=== PATIENT | male | born 1965 | race Caucasian/White ===

== ENCOUNTER → 2018-03-15 | Outpatient (CLI) | payer MEDICARE ==
[2018-03-15 15:02] LABS: HCT 41.7 % (39.0-53.0); MCH 31.4 pg (25.0-35.0); MCHC 33.6 g/dL (31.0-37.0); MCV 93.3 fL (80.0-100.0); Mean Platelet Volume 6.6; Platelet Count 236 k/uL (150-450); RBC 4.47 m/uL (4.30-5.90); RDW 12.8 % (11.5-15.5); WBC 6.8 k/uL (3.8-10.6)
[2018-03-15 15:19] LABS: ALT 30 U/L (21-72); AST 19 U/L (17-59); Alkaline Phosphatase 73 U/L (38-126); Anion Gap 11 mmol/L; Blood Urea Nitrogen 17 mg/dL (9-20); Calcium 9.3 mg/dL (8.4-10.2); Carbon Dioxide 24 mmol/L (22-30); Chloride 102 mmol/L (98-107); Glucose 341 mg/dL (74-99); Potassium 5.2 mmol/L (3.5-5.1); Sodium 137 mmol/L (137-145); Total Bilirubin 0.5 mg/dL (0.2-1.3); Total Protein 6.6 g/dL (6.3-8.2)
[2018-03-16 02:44] LABS: Hemoglobin A1C 13.3 % (4.0-6.0)
== END | disposition home or self-care (01) ==
LOC: LABWHC1 14:37
PROVIDERS: ATTEND Thoracic Surgery (Cardiothoracic Vascular Surgery)
DX: E13.621 Other specified diabetes mellitus with foot ulcer (principal); L97.509 Non-pressure chronic ulcer of other part of unspecified foot with unspecified severity
CPT/HCPCS: 36415; 80053; 83036; 84134; 85027

== ENCOUNTER → 2018-03-31 | Outpatient (CLI) | payer MEDICARE ==
--- NOTE | 2018-04-04 11:55 | P.ARTDOP ---
Arterial Doppler LOWER EXTREMITY ARTERIAL DOPPLER: DATE OF SERVICE: 03/31/2018 Reason for study: Nonhealing foot ulcer. Doppler waveforms: Multiphasic bilaterally throughout. Pulse volume recording: []. Pressure gradients: None. Ankle-brachial indices: Cannot be occluded on either side Toe pressures: 105 on the right, 105 on the left Impression: Suggests calcific wall disease typical of diabetes. Does not appear to be. Affecting flow patterns. Clinical correlation recommended.
== END | disposition home or self-care (01) ==
LOC: RADUSWWP 12:55
PROVIDERS: ATTEND Thoracic Surgery (Cardiothoracic Vascular Surgery)
DX: M79.604 Pain in right leg (principal); M79.605 Pain in left leg
CPT/HCPCS: 93922

== ENCOUNTER 2019-02-28 11:43 | Emergency (ER) | payer OTHER, MEDICARE ==
[2019-02-28 11:51] VITALS: RESP 18
[2019-02-28 13:36] LABS: Basophils % (A) 1 %; Eosinophils # (A) 0.1 k/uL (0-0.7); Eosinophils % (A) 2 %; HCT 39.8 % (39.0-53.0); HGB 12.9 gm/dL (13.0-17.5); Lymphocytes # (A) 1.7 k/uL (1.0-4.8); Lymphocytes % (A) 27 %; MCH 30.6 pg (25.0-35.0); MCHC 32.5 g/dL (31.0-37.0); MCV 94.1 fL (80.0-100.0); Mean Platelet Volume 7.8; Monocytes # (A) 0.3 k/uL (0-1.0); Monocytes % (A) 5 %; Neutrophils # (A) 3.9 k/uL (1.3-7.7); Neutrophils % (A) 63 %; Platelet Count 219 k/uL (150-450); RBC 4.23 m/uL (4.30-5.90); RDW 12.3 % (11.5-15.5); WBC 6.1 k/uL (3.8-10.6)
[2019-02-28 13:47] LABS: ALT 18 U/L (21-72); AST 14 U/L (17-59); African American GFR (CKD) >90 (>60 ml/min/1.73 sqM); Albumin 3.9 g/dL (3.5-5.0); Alkaline Phosphatase 94 U/L (38-126); Anion Gap 9 mmol/L; Blood Urea Nitrogen 15 mg/dL (9-20); Calcium 9.1 mg/dL (8.4-10.2); Carbon Dioxide 28 mmol/L (22-30); Chloride 99 mmol/L (98-107); Glucose 335 mg/dL (74-99); Potassium 4.6 mmol/L (3.5-5.1); Sodium 136 mmol/L (137-145); Total Bilirubin 0.9 mg/dL (0.2-1.3); Total Protein 6.5 g/dL (6.3-8.2)
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
[2019-02-28 14:25] VITALS: BP 142/87; PULSE 83
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
[2019-02-28 14:42] VITALS: TEMP 97.9
[2019-02-28 20:23] LABS: Hemoglobin A1C 14.2 % (4.0-6.0)
== END 2019-02-28 14:42 | disposition home or self-care (01) ==
LOC: EC 11:43
DX: S39.92XA Unspecified injury of lower back, initial encounter (principal); S29.9XXA Unspecified injury of thorax, initial encounter; J45.909 Unspecified asthma, uncomplicated; E78.5 Hyperlipidemia, unspecified; I10 Essential (primary) hypertension; E11.40 Type 2 diabetes mellitus with diabetic neuropathy, unspecified; F32.9 Major depressive disorder, single episode, unspecified; Z87.01 Personal history of pneumonia (recurrent); Z87.440 Personal history of urinary (tract) infections; Z87.442 Personal history of urinary calculi; Z98.890 Other specified postprocedural states; Z88.8 Allergy status to other drugs, medicaments and biological substances; W22.8XXA Striking against or struck by other objects, initial encounter; Y92.511 Restaurant or cafe as the place of occurrence of the external cause; Y93.89 Activity, other specified
CPT/HCPCS: 36415; 72072; 74176; 80053; 83036; 84134; 85025; 99284

== ENCOUNTER 2019-09-03 08:49 | Inpatient (IN) | payer MEDICARE ==
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
[2019-09-03] MEDS: SODIUM CHLORIDE 0.9% 1,000 ML IV SCH ×3 (09:51→22:47)
[2019-09-03 10:20] LABS: Basophils % (A) 1 %; Eosinophils # (A) 0.1 k/uL (0-0.7); Eosinophils % (A) 2 %; HCT 37.1 % (39.0-53.0); HGB 12.2 gm/dL (13.0-17.5); Lymphocytes # (A) 1.6 k/uL (1.0-4.8); Lymphocytes % (A) 27 %; MCH 30.3 pg (25.0-35.0); MCV 91.7 fL (80.0-100.0); Mean Platelet Volume 7.5; Monocytes # (A) 0.3 k/uL (0-1.0); Monocytes % (A) 5 %; Neutrophils # (A) 3.8 k/uL (1.3-7.7); Neutrophils % (A) 64 %; Platelet Count 271 k/uL (150-450); RBC 4.05 m/uL (4.30-5.90)
[2019-09-03 10:28] LABS: ALT 11 U/L (4-49); AST 17 U/L (17-59); African American GFR (CKD) >90 (>60 ml/min/1.73 sqM); Albumin 3.4 g/dL (3.5-5.0); Alkaline Phosphatase 94 U/L (38-126); Anion Gap 10 mmol/L; Blood Urea Nitrogen 18 mg/dL (9-20); Carbon Dioxide 21 mmol/L (22-30); Chloride 104 mmol/L (98-107); Glucose 409 mg/dL (74-99); Non-African American GFR(CKD) >90 (>60 ml/min/1.73 sqM); Potassium 4.9 mmol/L (3.5-5.1); Sodium 135 mmol/L (137-145); Total Bilirubin 0.5 mg/dL (0.2-1.3); Total Protein 6.2 g/dL (6.3-8.2)
[2019-09-03 10:40] LABS: INR 0.9 (<1.2); Prothrombin Time 9.5 sec (9.0-12.0)
--- NOTE | 2019-09-03 10:40 | XR ---
EXAMINATION TYPE: XR tibia fibula LT DATE OF EXAM: 09/03/2019 CLINICAL HISTORY: Nonhealing wound for 2 weeks. TECHNIQUE: Two views of the left leg are obtained. COMPARISON: None. FINDINGS: There is no acute fracture or dislocation seen in the left tibia or fibula. No suspicious cortical destruction or periosteal reaction. The left knee and ankle joints appear within normal limi ts. Mild focal soft tissue prominence or swelling anterior to distal shaft level of the tibia with so me scattered vascular calcification and phleboliths noted. IMPRESSION: As above.
[2019-09-03 10:47] LABS: Partial Thromboplastin Time 21.9 sec (22.0-30.0)
[2019-09-03] MEDS ORDERED: AMPICILLIN-SULBACTAM 3 GM in SODIUM CHLORIDE 0.9% 100 ML IVPB STA (10:47)
[2019-09-03] MEDS ORDERED: NALOXONE 0.4 MG/ML 1 ML VIAL IV PRN (10:48)
[2019-09-03] MEDS ORDERED: ACETAMINOPHEN TAB 325 MG TAB PO PRN (10:48)
[2019-09-03 13:11] LABS: Glucose,Whole Blood 314 mg/dL (75-99)
[2019-09-03] MEDS: INSULIN ASPART (NovoLOG) 100 UNIT/ML VIAL SQ SCH ×3 (13:34→20:24)
[2019-09-03 17:23] LABS: Glucose,Whole Blood 311 mg/dL (75-99)
[2019-09-03] MEDS ORDERED: AMPICILLIN-SULBACTAM 1.5 GM in SODIUM CHLORIDE 0.9% 50 ML IVPB SCH (18:00)
[2019-09-03] MEDS ORDERED: IPRATROPIUM-ALBUTEROL 3 ML NEB INHALATION PRN (20:00)
[2019-09-03] MEDS ORDERED: ONDANSETRON 4 MG/2 ML VIAL IVP PRN (20:01)
[2019-09-03] MEDS: ATORVASTATIN 40 MG TAB PO SCH (20:23)
[2019-09-03] MEDS: GABAPENTIN 300 MG CAP PO SCH (20:23)
[2019-09-03] MEDS: INSULN ASP PRT/INSULIN ASPART 100 UNIT/ML 10 ML VIAL SQ SCH (20:24)
[2019-09-03 20:28] LABS: Glucose,Whole Blood 415 mg/dL (75-99)
[2019-09-03] MEDS ORDERED: ALPRAZolam 0.25 MG TAB PO PRN (22:13)
[2019-09-03] MEDS ORDERED: HYDROmorphone 0.5 MG/0.5 ML SYRINGE IVP PRN (22:13)
[2019-09-03] MEDS ORDERED: TEMAZEPAM 15 MG CAP PO PRN (22:13)
[2019-09-03] MEDS ORDERED: VANCOMYCIN IV PER PHARMACY 1 EACH MISC MISCELLANE PRN (22:13)
[2019-09-03] MEDS ORDERED: VANCOMYCIN 1,500 MG in SODIUM CHLORIDE 0.9% 250 ML IVPB ONE (22:13)
[2019-09-03] MEDS ORDERED: PIPERACILLIN-TAZOBACTAM 3.375 GM in SODIUM CHLORIDE 0.9% 100 ML IVPB SCH (22:14)
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
[2019-09-03] MEDS: HEPARIN SODIUM,PORCINE 5,000 UNIT/ML 1 ML VIAL SQ SCH (22:47)
--- NOTE | 2019-09-03 23:59 | HP ---
HISTORY AND PHYSICAL CHIEF COMPLAINT: Pain and swelling of the left mendieta. HISTORY OF PRESENT ILLNESS: This 53-year-old gentleman with a past medical history of diabetes mellitus, history of asthma, history of GERD, hypertension, hyperlipidemia, DJD, neuropathy, being followed by Dr. Elaine Arias in the outpatient setting, previously had multiple ulcers in the right foot, which have healed. Currently the patient is complaining of pain and swelling and ulceration of the left mendieta area for the last 3 weeks. Initially patient had an injury while taking the and scraped the mendieta against the board in the van and subsequently patient re-injured with hitting it on a bed frame in the mid part of the mendieta. Also the patient put a Band-Aid on it and when he took the Bank-Aid off it denuded part of the skin as well. Because of increasing pain and swelling and redness, tenderness and some discharge, Dr. Arias recommended that the patient go to the wound care center. The patient subsequently came to [facility] Emergency Room and was admitted for further evaluation and treatment. There is no history of any fever, rigor or chills. No history of headache, loss of consciousness, seizures. PAST MEDICAL HISTORY: History of asthma, diabetes mellitus, GERD, hypertension, hyperlipidemia, history of DJD, history of neuropathy, history of ADD, ADHD, depression. HOME MEDICATIONS: 1. Bactrim DS 1 p.o. b.i.d. 2. Zoloft 50 mg p.o. daily. 3. Prinivil 20 mg p.o. daily. 4. Humalog Mix 40 units subcutaneously t.i.d. 5. Neurontin 300 to 600 mg p.o. t.i.d. 6. Lotrisone application t.i.d. 7. Lipitor 40 mg. 8. Albuterol 1-2 puffs q.6 p.r.n. ALLERGIES: PHENOBARBITAL. FAMILY HISTORY: History of CAD in the family. SOCIAL HISTORY: No history of smoking. No history of alcohol intake. REVIEW OF SYSTEMS: ENT: No diminished hearing. No diminished vision. CARDIOVASCULAR SYSTEM: No angina, palpitations. RESPIRATORY SYSTEM: As mentioned earlier. GI: No nausea, vomiting. : No dysuria or retention. NERVOUS SYSTEM: As mentioned earlier. ALLERGY/IMMUNOLOGY: No asthma, hayfever. MUSCULOSKELETAL: As mentioned earlier. HEMATOLOGY/ONCOLOGY: No history of anemia. ENDOCRINE: Diabetes mellitus. CONSTITUTIONAL: As mentioned earlier. DERMATOLOGY: As mentioned earlier. RHEUMATOLOGY: Negative. PSYCHIATRY: As mentioned earlier. PHYSICAL EXAMINATION: Patient is alert and oriented x3. Pulse is 93, blood pressure 136/75, respiration 18, temperature 98.2, pulse ox 96% on room air. HEENT: Conjunctivae normal. Oral mucosa moist. NECK: No jugular venous distention. No carotid bruit. No lymph node enlargement. CARDIOVASCULAR SYSTEM: S1, S2 muffled. No S3. No S4. RESPIRATORY SYSTEM: Breath sounds diminished at the bases. A few scattered rhonchi. No crackles. ABDOMEN: Soft, non-tender. No mass palpable. Obese. LEGS: Significant pain and swelling and fluctuant mass in the mid part of the mendieta with surrounding erythema. Denuded skin, also. Severe tenderness present. There are healed scars on the right foot. Pulses are diminished bilaterally and sensation is also diminished bilaterally. NERVOUS SYSTEM: Higher functions as mentioned earlier. Moves all 4 limbs. No focal motor or sensory deficit. LYMPHATICS: No lymph node palpable in neck, axillae or groin. SKIN: As mentioned earlier. JOINTS: No active deforming arthropathy. LABS: WBC 6, hemoglobin 12.2. Sodium 135, potassium 4.9. Glucose 409. Albumin 3.4. ASSESSMENT: 1. Acute left mendieta abscess with surrounding cellulitis, possibly related to diabetes mellitus, type 2, with failure of outpatient treatment. 2. Diabetes mellitus, type 2, uncontrolled with hyperglycemia. 3. Hyponatremia. 4. Anemia, normocytic; anemia of chronic disease. 5. History of asthma. 6. History of gastroesophageal reflux disease. 7. Hyperlipidemia. 8. Hypertension. 9. History of degenerative joint disease. 10.History of pneumonia. 11.History of sleep apnea. 12.History of peripheral neuropathy. 13.History of previous methicillin-resistant Staphylococcus aeruginosa. 14.History of attention deficit disorder, attention deficit hyperactivity disorder and depression. 15.FULL CODE. RECOMMENDATIONS AND DISCUSSION: In this 53-year-old gentleman who presented with multiple complex medical issues, I would recommend to continue the current medications, continue with symptomatic treatment. Otherwise I would recommend broad-spectrum IV antibiotics. I would recommend Zosyn and vancomycin. Obtain the cultures. Will also recommend infectious disease evaluation and orthopedic evaluation and bone scan. Resume the home medications. Monitor blood sugars closely. Guarded prognosis because of multiple complex medical issues. Further recommendations to follow. A copy of this dictation is being forwarded to Dr. Arias, who is the primary physician. Prognosis guarded. See orders for details. Cut down the IV to 70 mL/hour. DVT prophylaxis and proton pump inhibitors. MMODL / IJN: [id number] / MTDD
[2019-09-04 07:49] LABS: Glucose,Whole Blood 135 mg/dL (75-99)
[2019-09-04] MEDS: LISINOPRIL 20 MG TAB PO SCH (08:10)
[2019-09-04] MEDS: HEPARIN SODIUM,PORCINE 5,000 UNIT/ML 1 ML VIAL SQ SCH ×3 (08:10→20:52)
[2019-09-04] MEDS: PANTOPRAZOLE 40 MG TABLET PO SCH (08:10)
[2019-09-04] MEDS: SERTRALINE 50 MG TAB PO SCH (08:10)
[2019-09-04] MEDS: INSULN ASP PRT/INSULIN ASPART 100 UNIT/ML 10 ML VIAL SQ SCH ×2 (08:10→17:38)
[2019-09-04] MEDS: INSULIN ASPART (NovoLOG) 100 UNIT/ML VIAL SQ SCH ×4 (08:11→20:51)
[2019-09-04] MEDS: GABAPENTIN 300 MG CAP PO SCH ×3 (08:17→20:52)
[2019-09-04] MEDS: VANCOMYCIN 1,500 MG in SODIUM CHLORIDE 0.9% 250 ML IVPB SCH ×3 (08:17→23:25)
[2019-09-04 09:39] LABS: Basophils % (A) 1 %; Eosinophils # (A) 0.1 k/uL (0-0.7); Eosinophils % (A) 2 %; HCT 35.5 % (39.0-53.0); HGB 11.8 gm/dL (13.0-17.5); Lymphocytes # (A) 1.9 k/uL (1.0-4.8); Lymphocytes % (A) 37 %; MCH 30.8 pg (25.0-35.0); MCHC 33.2 g/dL (31.0-37.0); MCV 92.8 fL (80.0-100.0); Mean Platelet Volume 7.4; Monocytes # (A) 0.2 k/uL (0-1.0); Monocytes % (A) 4 %; Neutrophils # (A) 2.7 k/uL (1.3-7.7); Neutrophils % (A) 54 %; Platelet Count 276 k/uL (150-450); RBC 3.83 m/uL (4.30-5.90); RDW 12.3 % (11.5-15.5); WBC 5.1 k/uL (3.8-10.6)
[2019-09-04 10:02] LABS: African American GFR (CKD) >90 (>60 ml/min/1.73 sqM); Anion Gap 4 mmol/L; Blood Urea Nitrogen 14 mg/dL (9-20); Calcium 8.7 mg/dL (8.4-10.2); Carbon Dioxide 25 mmol/L (22-30); Chloride 108 mmol/L (98-107); Glucose 174 mg/dL (74-99); Non-African American GFR(CKD) >90 (>60 ml/min/1.73 sqM); Potassium 5.5 mmol/L (3.5-5.1); Sodium 137 mmol/L (137-145)
[2019-09-04 11:21] VITALS: BMI 33.4
--- NOTE | 2019-09-04 11:47 | NM ---
EXAMINATION TYPE: NM bone 3 phase DATE OF EXAM: 09/04/2019 COMPARISON: Three-phase bone scan October 24, 2014. Left leg x-ray from yesterday. HISTORY: Left leg wound. Triple phase bone scintigraphy was performed following the injection of 22.5 mCi Tc 99m MDP. Immedia te images and 3.5 hours post injection images acquired. Imaging is obtained of the bilateral legs and ankles. FINDINGS: Arterial and soft tissue phase images show increased uptake to the left leg versus the Opposite right leg most prominent involving the lateral anterior aspect distal diaphyseal level. Delayed phase images show no increased radiotracer uptake at this level to suggest acute osteomyeliti s. Two-phase radiotracer uptake is consistent with soft tissue infection or acute cellulitis at this level. IMPRESSION: As above.
[2019-09-04 12:33] LABS: Glucose,Whole Blood 102 mg/dL (75-99)
--- NOTE | 2019-09-04 12:35 | P.CNOR ---
<Papo Mujica - Last Filed: 09/04/19 12:13> History of Present Illness - HPI Consult date: 09/04/19 History of present illness: This patient is a 53-year-old male with past medical history of hypertension and type 2 diabetes last A1c 12, per patient, who presented to [facility] ER on 09/03/19 with complaints of a left lower leg wound. The patient states he initially injured With the leg in April 2019, he states he sustained a wound from a truck bed. He states the wound was open for about 4 weeks, although it eventually healed. He states he experienced intermittent pain to the left lower leg throughout the past few months. He states he again injured the same location the left lower leg about 4 weeks ago on his bed frame. He states he presented to his primary care physician for evaluation and treatment. The patient was placed on Bactrim and has been taking Bactrim for the past 34 weeks. He states he was seen for a follow-up appointment his primary care physician's office, and he was told to present to the emergency department if he experiences worsening of symptoms. He states he began to notice drainage of the wound over the weekend, therefore he presented to the emergency department for treatment. The patient also notes a history of MRSA infection. At the time of my examination, the patient states he is experiencing mild pain in the left lower leg. He denies fevers, chills, nausea, vomiting, feeling generalized malaise. He states he otherwise feels well. Vital signs stable. Past Medical History Past Medical History: Asthma, Diabetes Mellitus, GERD/Reflux, Hyperlipidemia, Hypertension, Osteoarthritis (OA), Pneumonia, Sleep Apnea/CPAP/BIPAP Additional Past Medical History / Comment(s): neuropathy, sleep apnea in past with use of cpap but since lost over 100 pounds does;nt need machine any more,kidney stones, uti,PAST STAPH INFECTION RT EYE STATED NOT MRSA. [place] severe cold wheather had skin damage to both feet, most cleared up with excpetion of rt great toe. History of Any Multi-Drug Resistant Organisms: MRSA Year Discovered:: 2013 MDRO Source:: RT toe Past Surgical History: Adenoidectomy, Tonsillectomy Additional Past Surgical History / Comment(s): I&D of rt great toe Past Anesthesia/Blood Transfusion Reactions: No Reported Reaction Past Psychological History: ADD/ADHD, Depression Smoking Status: Never smoker Past Alcohol Use History: Occasional Past Drug Use History: None Reported - Past Family History Father Family Medical History: Coronary Artery Disease (CAD) Mother Family Medical History: Coronary Artery Disease (CAD), Diabetes Mellitus Medications and Allergies Home Medications Medication Instructions Recorded Confirmed Type Albuterol Sulfate [Ventolin HFA] 1 - 2 puff INHALATION RT-Q6H PRN 10/16/14 09/03/19 History Gabapentin [Neurontin] 300 - 600 mg PO TID 10/16/14 09/03/19 History Lisinopril [Prinivil] 20 mg PO DAILY 10/16/14 09/03/19 History Atorvastatin [Lipitor] 40 mg PO W/SUPPER 09/03/19 09/03/19 History Clotrimazole/Betameth Cream 1 applic TOPICAL TID 09/03/19 09/03/19 History [Lotrisone] Insulin NPL/Insulin Lispro 40 unit SQ AC-TID 09/03/19 09/03/19 History [humaLOG MIX 75-25 VIAL] Sertraline [Zoloft] 50 mg PO DAILY 09/03/19 09/03/19 History Sulfamethox-Tmp 800-160Mg [Bactrim 1 tab PO Q12HR 09/03/19 09/03/19 History DS 800-160 mg] Allergies Allergy/AdvReac Type Severity Reaction Status Date / Time phenobarbital AdvReac Unknown Verified 09/04/19 14:40 Childhood Physical Examination On examination, the patient is sitting up in bed in no distress. He is alert and oriented 3. His head appears normocephalic and atraumatic. His breathing appears nonlabored. On inspection of the left lower extremity, there is diffuse swelling of the left lower extremity with an area about 10cm x 10cm of erythema with a central area of fluctuance. This area is moderately tender to palpation. There is no active drainage at this time. The calf is soft and non-tender to palpation. No pain with PROM of the knee or ankle. Sensation is decreased to light touch of the dorsal and plantar foot, as well as the first dorsal webspace, secondary to patient's neuropathy. The left lower extremity is warm an d well perfused with brisk capillary refill. Results - Labs Labs: Abnormal Lab Results - Last 24 Hours (Table) 09/03/19 09/03/19 09/03/19 Range/Units 09:36 09:36 09:36 RBC 4.05 L (4.30-5.90) m/uL Hgb 12.2 L (13.0-17.5) gm/dL Hct 37.1 L (39.0-53.0) % APTT 21.9 L (22.0-30.0) sec Sodium 135 L (137-145) mmol/L Carbon Dioxide 21 L (22-30) mmol/L Creatinine 0.65 L (0.66-1.25) mg/dL Glucose 409 H (74-99) mg/dL POC Glucose (mg/dL) (75-99) mg/dL Total Protein 6.2 L (6.3-8.2) g/dL Albumin 3.4 L (3.5-5.0) g/dL 09/03/19 09/03/19 09/03/19 Range/Units 13:08 17:21 20:16 RBC (4.30-5.90) m/uL Hgb (13.0-17.5) gm/dL Hct (39.0-53.0) % APTT (22.0-30.0) sec Sodium (137-145) mmol/L Carbon Dioxide (22-30) mmol/L Creatinine (0.66-1.25) mg/dL Glucose (74-99) mg/dL POC Glucose (mg/dL) 314 H 311 H 415 H (75-99) mg/dL Total Protein (6.3-8.2) g/dL Albumin (3.5-5.0) g/dL 09/04/19 Range/Units 07:17 RBC (4.30-5.90) m/uL Hgb (13.0-17.5) gm/dL Hct (39.0-53.0) % APTT (22.0-30.0) sec Sodium (137-145) mmol/L Carbon Dioxide (22-30) mmol/L Creatinine (0.66-1.25) mg/dL Glucose (74-99) mg/dL POC Glucose (mg/dL) 135 H (75-99) mg/dL Total Protein (6.3-8.2) g/dL Albumin (3.5-5.0) g/dL Microbiology - Last 24 Hours (Table) 09/03/19 09:36 Gram Stain - Preliminary Leg - Left Wound Culture - Preliminary Presumptive Staph aureus H & H 09/03/19 Range/Units 09:36 Hgb 12.2 L (13.0-17.5) gm/dL Hct 37.1 L (39.0-53.0) % Coagulation 09/03/19 Range/Units 09:36 INR 0.9 (<1.2) Result Diagrams: 09/04/19 08:26 09/04/19 08:26 Assessment and Plan Assessment: Left lower extremity cellulitis and abscess Plan: - The clinical findings were discussed with the patient. Recommended a formal irrigation and debridement of the left lower leg wound in the operating room today. We will plan for this afternoon, as the patient was not made NPO and ate breakfast this morning. - NPO diet. - Further recommendations will be made postoperatively. Patient discussed with Dr. Machado. <Chapo Machado - Last Filed: 09/04/19 15:17> Results - Labs Labs: Abnormal Lab Results - Last 24 Hours (Table) 09/03/19 09/03/19 09/04/19 Range/Units 17:21 20:16 07:17 RBC (4.30-5.90) m/uL Hgb (13.0-17.5) gm/dL Hct (39.0-53.0) % Potassium (3.5-5.1) mmol/L Chloride (98-107) mmol/L Creatinine (0.66-1.25) mg/dL Glucose (74-99) mg/dL POC Glucose (mg/dL) 311 H 415 H 135 H (75-99) mg/dL 09/04/19 09/04/19 09/04/19 Range/Units 08:26 08:26 12:26 RBC 3.83 L (4.30-5.90) m/uL Hgb 11.8 L (13.0-17.5) gm/dL Hct 35.5 L (39.0-53.0) % Potassium 5.5 H (3.5-5.1) mmol/L Chloride 108 H (98-107) mmol/L Creatinine 0.59 L (0.66-1.25) mg/dL Glucose 174 H (74-99) mg/dL POC Glucose (mg/dL) 102 H (75-99) mg/dL Microbiology - Last 24 Hours (Table) 09/03/19 09:36 Blood Culture - Preliminary Blood No Growth after 24 hours 09/03/19 09:36 Gram Stain - Preliminary Leg - Left Wound Culture - Preliminary Presumptive Staph aureus H & H 09/03/19 09/04/19 Range/Units 09:36 08:26 Hgb 12.2 L 11.8 L (13.0-17.5) gm/dL Hct 37.1 L 35.5 L (39.0-53.0) % Coagulation 09/03/19 Range/Units 09:36 INR 0.9 (<1.2) Result Diagrams: 09/04/19 08:26 09/04/19 08:26 Assessment and Plan Plan: I agree with the above consult note. The patient is a poorly controlled diabetic currently on insulin with a recent hemoglobin A1c level of over 12 who was admitted to internal medicine with a left lower leg infection. Clinically there is an area of fluctuance from a presumed abscess over the anterolateral aspect of the left distal tibia. I recommended surgical irrigation and debridement with deep cultures. The patient understands the potential risks including continued or worsened infection and possibly the need for amputation. Time with Patient: Greater than 30
[2019-09-04] MEDS ORDERED: IV FLUID CONTINUATION 1,000 ML IV ONE (14:33)
[2019-09-04 14:49] LABS: Glucose,Whole Blood 94 mg/dL (75-99)
[2019-09-04] MEDS ORDERED: FAMOTIDINE 20 MG/2 ML VIAL IVP ONE (15:16)
[2019-09-04] MEDS ORDERED: ONDANSETRON 4 MG/2 ML VIAL IVP ONE (15:16)
[2019-09-04] MEDS ORDERED: PROPOFOL 10 MG/ML 20 ML VIAL IV ONE (15:19)
[2019-09-04] MEDS ORDERED: MIDAZOLAM 2 MG/2 ML VIAL ONE (15:19)
[2019-09-04] MEDS ORDERED: ePHEDrine SULFATE/0.9% NACL/PF 50 MG/5 ML SYRINGE IV ONE (15:19)
[2019-09-04] MEDS ORDERED: LIDOCAINE 1% INJ 10MG/ML (20 ML MDV) ONE (15:19)
[2019-09-04] MEDS ORDERED: fentaNYL (PF) 50 MCG/ML 2 ML AMP ONE (15:19)
[2019-09-04] MEDS ORDERED: SODIUM CHLORIDE 0.9% 1,000 ML IV ONE (15:46)
[2019-09-04] MEDS ORDERED: LIDOCAINE 2% (PF) 20 MG/ML 10 ML AMP SQ ONE (15:48)
--- NOTE | 2019-09-04 16:20 | P.OP ---
Date of Procedure: 09/04/19 Preoperative Diagnosis: 1. Cellulitis and deep abscess, left leg 2. Poorly controlled insulin-dependent diabetes with hemoglobin A1c greater than 12 Postoperative Diagnosis: Same Procedure(s) Performed: 1. Irrigation and debridement of left leg abscess (excisional debridement left leg using a scalpel down to the level of bone of nonviable skin and subcutaneous tissue) 2. Application of wound VAC, left leg Anesthesia: local, other (Sedation) Surgeon: Chapo Machado Estimated Blood Loss (ml): 5 IV fluids (ml): 500 Pathology: other (Deep cultures sent to microbiology) Condition: stable Disposition: PACU Indications for Procedure: The patient is a poorly controlled diabetic with a recent hemoglobin A1c level greater than 12 who was admitted with a left leg infection. Orthopedics was consulted. He was found to have a fluctuant mass and surrounding synovitis. I recommended formal drainage in the operating room. He discussed the potential risks and complications of surgery including wound healing issues, continued or worsened infection, medical Locations, and possibly need fragmentation. The patient understands these potential risks and acknowledges that he is a greater risk of having a complication due to his poorly controlled diabetes. He provided his consent to go forward with surgery. Operative Findings: There is a large abscess over the anterolateral aspect of the distal tibia. A large amount of gross purulence was expressed Description of Procedure: The patient was identified in preoperative holding and the correct left leg was marked with my initials. I reviewed the consent form with the patient and all of his questions were answered. The patient was then brought back to the operating room by anesthesia. He was given a sedation by anesthesia and preoperative antibiotics. A tourniquet was applied to the proximal aspect the left leg but was not used during the case. The left leg was prepped and draped in the standard sterile fashion. Prior to starting surgery timeout was performed identifying the correct patient, operative extremity, and procedure. I began by outlining a longitudinal incision directly over the fluctuant mass. 10 mL's of 2% lidocaine was injected over the marked incision site. A 15 blade scalpel was used to incise the skin. Dissection was carried down bluntly through the subcutaneous tissue with dissecting scissors. Immediately upon entering the abscess a large amount of gross purulence was expressed. The purulence was swabbed and sent for culture. The abscess tracked down to the periosteum over the tibia. The abscess was thoroughly debrided of nonviable tissue with a scalpel. A curet was used to remove the lining of the abscess. Wound was then thoroughly irrigated with sterile saline using pulsatile lavage. Due to the amount of purulence I decided to use a wound VAC. Ioban was cut into 1 inch strips were placed on the skin surrounding the wound. A wound VAC sponge was sized to the wound, cut, and gently packed into the abscess cavity. The VAC dressing Tiffanie pad were applied over the sponge and hooked up to a canister. Suction was set to 125 mmHg continuous suction was found have an excellent seal. An Manny wrap was applied over the leg. The patient was then awoken from his anesthetic and transferred to recovery room and procedure well. Plan: I would like to leave the VAC dressing on for at least 24-48 hours. We will take the dressing down in 24-48 hours. If at that point the wound appears clean I will turnover wound management and IV antibiotics to the infectious disease team. We'll continue to closely follow the patient while he is an inpatient.
[2019-09-04 16:25] LABS: Glucose,Whole Blood 112 mg/dL (75-99)
[2019-09-04] MEDS: HYDROmorphone 0.5 MG/0.5 ML SYRINGE IVP ONE ×2 (16:33→16:36)
[2019-09-04 17:24] LABS: Glucose,Whole Blood 108 mg/dL (75-99)
[2019-09-04] MEDS: SODIUM CHLORIDE 0.9% 1,000 ML IV SCH (17:28)
[2019-09-04] MEDS: ATORVASTATIN 40 MG TAB PO SCH (17:38)
[2019-09-04 20:10] LABS: Glucose,Whole Blood 108 mg/dL (75-99)
--- NOTE | 2019-09-04 20:15 | PN ---
PROGRESS NOTE DATE OF SERVICE: 09/04/2019 This 53-year-old gentleman admitted with significant abscess of the left mendieta underwent incision and drainage by Dr. Machado. The patient also had a wound V.A.C. applied to the left mendieta. There was no evidence of osteomyelitis. Irrigation and debridement of the left leg abscess with excisional debridement was also noted. There is no history of any fever or chills. The cultures are showing presumptive Staph aureus. PHYSICAL EXAMINATION: Alert and oriented x3. Pulse is 92, blood pressure 140/78, respirations 16, temperature 97 degrees, pulse ox 96% on room air. HEENT: Conjunctivae normal. NECK: No jugular venous distention. CARDIOVASCULAR SYSTEM: S1, S2 muffled. RESPIRATORY SYSTEM: Breath sounds diminished at the bases. No rhonchi. No crackles. ABDOMEN: Soft, non-tender. LEGS: Left mendieta abscess, status post incision and drainage. LABS: WBC 5.1, hemoglobin 11.2, potassium 5.5. ASSESSMENT: 1. Left mendieta abscess with surrounding cellulitis, possibly related to diabetes mellitus, type 2, with failure of outpatient treatment, status post excisional debridement and wound V.A.C. application. 2. Diabetes mellitus, type 2, uncontrolled, with hyperglycemia. 3. Hyponatremia. 4. Anemia, normocytic; anemia of chronic disease. 5. History of asthma. 6. Gastroesophageal reflux disease. 7. Hyperlipidemia. 8. Hypertension. 9. History of degenerative joint disease. 10.History of pneumonia. 11.Sleep apnea. 12.Peripheral neuropathy. 13.History of previous methicillin-resistant Staphylococcus aeruginosa. 14.History of attention deficit disorder, attention deficit hyperactivity disorder and depression. 15.FULL CODE. RECOMMENDATIONS AND DISCUSSION: I recommend to continue current medications, continue with the monitoring, symptomatic treatment. Continue with antibiotics. The blood sugars are better controlled at this time. Will continue to monitor with the 50 units of Lantus b.i.d. Closely follow with Dr. Machado and Dr. Camp. Await final ID of the cultured organisms. Further recommendations to follow. MMODL / IJN: [id number] /
--- NOTE | 2019-09-04 23:29 | PN ---
PROGRESS NOTE DATE OF SERVICE: 09/04/2019 REASON FOR FOLLOWUP: Left leg wound and cellulitis. INTERVAL HISTORY: The patient is currently afebrile. The patient has been breathing comfortably. The patient denies having any chest pain, shortness of breath or cough. No nausea, no vomiting. No abdominal pain. No diarrhea. PHYSICAL EXAMINATION: Blood pressure is 146/78 with a pulse of 92, temperature 97. He is 96% on room air. General description is a middle-aged male up in the bed in no distress. RESPIRATORY SYSTEM: Unlabored breathing. Clear to auscultation anteriorly. HEART: S1, S2. Regular rate and rhythm. ABDOMEN: Soft. No tenderness. LABS: Wound culture with presumptive Staph aureus. DIAGNOSTIC IMPRESSION AND PLAN: Patient with left leg wound, traumatic, now with evidence of underlying abscess, failing outpatient oral antibiotic therapy, status post drainage of this abscess. Will wait for the culture to finalize. Continue the patient on vancomycin and monitor clinical course closely. MMODL / IJN: [id number] /
[2019-09-05] MEDS: SODIUM CHLORIDE 0.9% 1,000 ML IV SCH ×2 (05:30→21:18)
[2019-09-05 07:04] LABS: Glucose,Whole Blood 127 mg/dL (75-99)
[2019-09-05] MEDS: INSULIN ASPART (NovoLOG) 100 UNIT/ML VIAL SQ SCH ×4 (07:08→21:22)
[2019-09-05] MEDS: INSULN ASP PRT/INSULIN ASPART 100 UNIT/ML 10 ML VIAL SQ SCH ×2 (07:52→17:29)
[2019-09-05] MEDS: HEPARIN SODIUM,PORCINE 5,000 UNIT/ML 1 ML VIAL SQ SCH ×2 (07:53→21:18)
[2019-09-05] MEDS: PANTOPRAZOLE 40 MG TABLET PO SCH (07:53)
[2019-09-05] MEDS: SERTRALINE 50 MG TAB PO SCH (07:53)
[2019-09-05] MEDS: LISINOPRIL 20 MG TAB PO SCH (07:53)
[2019-09-05] MEDS: GABAPENTIN 300 MG CAP PO SCH ×3 (07:53→21:18)
[2019-09-05] MEDS: VANCOMYCIN 1,500 MG in SODIUM CHLORIDE 0.9% 250 ML IVPB SCH ×2 (07:53→16:47)
[2019-09-05 09:15] LABS: Basophils % (A) 1 %; Eosinophils # (A) 0.1 k/uL (0-0.7); Eosinophils % (A) 2 %; HCT 34.9 % (39.0-53.0); HGB 11.7 gm/dL (13.0-17.5); Lymphocytes # (A) 1.8 k/uL (1.0-4.8); Lymphocytes % (A) 35 %; MCH 31.2 pg (25.0-35.0); MCHC 33.5 g/dL (31.0-37.0); MCV 93.2 fL (80.0-100.0); Mean Platelet Volume 7.6; Monocytes # (A) 0.2 k/uL (0-1.0); Monocytes % (A) 5 %; Neutrophils # (A) 2.9 k/uL (1.3-7.7); Neutrophils % (A) 57 %; Platelet Count 278 k/uL (150-450); RBC 3.74 m/uL (4.30-5.90); RDW 12.2 % (11.5-15.5); WBC 5.1 k/uL (3.8-10.6)
[2019-09-05 09:25] LABS: African American GFR (CKD) >90 (>60 ml/min/1.73 sqM); Anion Gap 5 mmol/L; Blood Urea Nitrogen 9 mg/dL (9-20); Calcium 8.6 mg/dL (8.4-10.2); Carbon Dioxide 25 mmol/L (22-30); Chloride 108 mmol/L (98-107); Glucose 132 mg/dL (74-99); Non-African American GFR(CKD) >90 (>60 ml/min/1.73 sqM); Potassium 4.7 mmol/L (3.5-5.1); Sodium 138 mmol/L (137-145)
--- NOTE | 2019-09-05 10:20 | P.PN ---
Subjective Progress Note Date: 09/05/19 The patient is doing better this morning. He is minimal pain in his leg. He denies fevers or chills. Objective - Vital Signs Vital signs: Vital Signs Temp 97.4 F L 09/05/19 05:13 Pulse 86 09/05/19 05:13 Resp 16 09/05/19 05:13 BP 156/88 09/05/19 05:13 Pulse Ox 97 09/05/19 05:13 Intake & Output 09/04/19 09/05/19 09/05/19 18:59 06:59 18:59 Intake Total 1450 200 Output Total 5 Balance 1445 200 Weight 99.79 kg Intake: IV 1450 Oral 200 Output: Estimated Blood Loss 5 Other: # Voids 2 1 - Exam On exam the patient is sitting comfortably in his bed. The dressing over his left leg is intact with a clean-appearing Manny wrap. The tubing from the wound VAC is attached to the canister, with a good seal and suction is set to 125 mmHg. The tips of the toes are warm and well perfused. - Labs CBC & Chem 7: 09/05/19 07:51 09/05/19 07:51 Labs: Abnormal Lab Results - Last 24 Hours (Table) 09/04/19 09/04/19 09/04/19 Range/Units 12:26 16:23 17:15 RBC (4.30-5.90) m/uL Hgb (13.0-17.5) gm/dL Hct (39.0-53.0) % Chloride (98-107) mmol/L Creatinine (0.66-1.25) mg/dL Glucose (74-99) mg/dL POC Glucose (mg/dL) 102 H 112 H 108 H (75-99) mg/dL 09/04/19 09/05/19 09/05/19 Range/Units 20:07 06:59 07:51 RBC 3.74 L (4.30-5.90) m/uL Hgb 11.7 L (13.0-17.5) gm/dL Hct 34.9 L (39.0-53.0) % Chloride (98-107) mmol/L Creatinine (0.66-1.25) mg/dL Glucose (74-99) mg/dL POC Glucose (mg/dL) 108 H 127 H (75-99) mg/dL 09/05/19 Range/Units 07:51 RBC (4.30-5.90) m/uL Hgb (13.0-17.5) gm/dL Hct (39.0-53.0) % Chloride 108 H (98-107) mmol/L Creatinine 0.55 L (0.66-1.25) mg/dL Glucose 132 H (74-99) mg/dL POC Glucose (mg/dL) (75-99) mg/dL Microbiology - Last 24 Hours (Table) 09/04/19 15:55 Gram Stain - Preliminary Leg - Left Wound Culture - Preliminary 09/04/19 15:55 Fungal Culture - Preliminary Leg - Left 09/04/19 15:55 Anaerobic Culture - Preliminary Leg - Left 09/03/19 09:36 Blood Culture - Preliminary Blood No Growth after 24 hours 09/03/19 09:36 Gram Stain - Preliminary Leg - Left Wound Culture - Preliminary Presumptive Staph aureus Assessment and Plan (1) Abscess Current Visit: Yes Status: Acute Code(s): L02.91 - CUTANEOUS ABSCESS, UNSPECIFIED SNOMED Code(s): 857075962 (2) Abscess Current Visit: Yes Status: Acute Code(s): L02.91 - CUTANEOUS ABSCESS, UNSPECIFIED SNOMED Code(s): 244377501 (3) Abscess after procedure Current Visit: Yes Status: Acute Code(s): T81.49XA - INFECTION FOLLOWING A PROCEDURE, OTHER SURGICAL SITE, INIT SNOMED Code(s): 17045996846989694 (4) Left leg cellulitis Current Visit: Yes Status: Acute Code(s): L03.116 - CELLULITIS OF LEFT LOWER LIMB SNOMED Code(s): 806101783 Plan: I would like to leave the wound VAC on until tomorrow. Our team will change the wound VAC at that time and examine the wound. If it appears clean and healthy at that time we'll defer further wound management and antibiotics to infectious disease. If he requires a second debridement we'll perform that at that time. We will continue to closely follow while he is an inpatient.
[2019-09-05 12:08] LABS: Glucose,Whole Blood 252 mg/dL (75-99)
[2019-09-05] MEDS: HYDROcodone/APAP 5-325MG 1 EACH TAB PO PRN ×2 (13:41→21:19)
[2019-09-05] MEDS ORDERED: VANCOMYCIN TROUGH DUE 1 EACH MISC MISCELLANE ONE (15:00)
[2019-09-05] MEDS: ATORVASTATIN 40 MG TAB PO SCH (16:47)
[2019-09-05 16:58] LABS: Glucose,Whole Blood 177 mg/dL (75-99)
[2019-09-05 20:53] LABS: Glucose,Whole Blood 69 mg/dL (75-99)
[2019-09-05 21:23] LABS: Glucose,Whole Blood 98 mg/dL (75-99)
--- NOTE | 2019-09-06 00:09 | PN ---
PROGRESS NOTE DATE OF SERVICE: 09/05/2019 This 53-year-old gentleman who was admitted after a significant abscess and incision and drainage, had a wound VAC applied. The cultures are showing MSSA. The patient is followed by Dr. Machado as well as Dr. Capm. No chest pain. No palpitations. No fever. PHYSICAL EXAM: Alert and oriented x3. Pulse 91, blood pressure 120/83, respirations 16, temperature 98 degrees, pulse ox 94% on room air. HEENT: Conjunctivae normal. Oral mucosa moist. NECK: No jugular venous distention. No lymph node enlargement. CARDIOVASCULAR: S1, S2. RESPIRATORY: Diminished breath sounds at the bases. No rhonchi, no crackles. ABDOMEN: Soft, nontender. LEGS: Examination of the left mendieta, status post incision and drainage and application of the wound VAC. NERVOUS SYSTEM: No focal deficits. LAB STUDIES: WBC 5.1, hemoglobin 11.7, sodium 130, potassium 4.7. Accu-Cheks 252 and 177. Vancomycin 17.6. ASSESSMENT: 1. Left mendieta abscess with surrounding cellulitis, possibly related to diabetes type 2 with failure of outpatient treatment, status post excisional debridement and wound VAC application with possible MSSA. 2. Diabetes type 2, uncontrolled with hyperglycemia. 3. Hyponatremia. 4. Anemia, normocytic anemia of chronic disease. 5. History of asthma. 6. History of gastroesophageal reflux disease. 7. History of hyperlipidemia. 8. History of hypertension. 9. History of degenerative joint disease. 10.History of pneumonia. 11.History of sleep apnea. 12.History of peripheral neuropathy. 13.History of previous MRSA. 14.History of ADD/ADHD and depression. 15.FULL CODE. RECOMMENDATIONS AND DISCUSSION: Recommend to continue current medications, continue to monitor, continue symptomatic treatment. Otherwise, at this time I recommend continue with wound VAC. Continue the broad-spectrum IV antibiotics. The patient is on insulin 50 units subcu b.i.d. I would recommend slight increase to 55 subcu b.i.d. and continue to monitor. Guarded prognosis because of multiple complex medical conditions. Further recommendations to follow. MMODL / IJN: [id number] /
[2019-09-06 02:40] LABS: Glucose,Whole Blood 253 mg/dL (75-99)
[2019-09-06 06:57] LABS: Glucose,Whole Blood 236 mg/dL (75-99)
[2019-09-06] MEDS: INSULN ASP PRT/INSULIN ASPART 100 UNIT/ML 10 ML VIAL SQ SCH ×2 (07:07→17:13)
[2019-09-06] MEDS: SERTRALINE 50 MG TAB PO SCH (07:07)
[2019-09-06] MEDS: HEPARIN SODIUM,PORCINE 5,000 UNIT/ML 1 ML VIAL SQ SCH ×2 (07:08→21:18)
[2019-09-06] MEDS: PANTOPRAZOLE 40 MG TABLET PO SCH (07:08)
[2019-09-06] MEDS: LISINOPRIL 20 MG TAB PO SCH (07:08)
[2019-09-06] MEDS: GABAPENTIN 300 MG CAP PO SCH ×3 (07:08→21:18)
[2019-09-06 07:50] LABS: Basophils % (A) 1 %; Eosinophils # (A) 0.1 k/uL (0-0.7); Eosinophils % (A) 2 %; HGB 10.8 gm/dL (13.0-17.5); Lymphocytes # (A) 1.8 k/uL (1.0-4.8); Lymphocytes % (A) 48 %; MCH 30.8 pg (25.0-35.0); MCHC 32.8 g/dL (31.0-37.0); MCV 93.8 fL (80.0-100.0); Mean Platelet Volume 7.8; Monocytes # (A) 0.2 k/uL (0-1.0); Monocytes % (A) 4 %; Neutrophils # (A) 1.7 k/uL (1.3-7.7); Neutrophils % (A) 44 %; Platelet Count 259 k/uL (150-450); RBC 3.51 m/uL (4.30-5.90); RDW 12.4 % (11.5-15.5); WBC 3.8 k/uL (3.8-10.6)
--- NOTE | 2019-09-06 07:55 | PN ---
PROGRESS NOTE DATE OF SERVICE: 09/05/2019 REASON FOR FOLLOWUP: Left leg abscess and cellulitis. INTERVAL HISTORY: The patient is currently afebrile. Patient has been breathing comfortably. Patient did have debridement of the left leg wound yesterday and application of a wound VAC. Denies having any chest pain, shortness of breath or cough. No nausea, vomiting. No abdominal pain or any worsening pain in the left leg. PHYSICAL EXAMINATION: Blood pressure is 143/80 with a pulse of 91, temperature 98, he is 95% on room air. General description is a middle-aged male, lying in bed in no distress. RESPIRATORY SYSTEM: Unlabored breathing, clear to auscultation anteriorly. HEART: S1, S2. Regular rate and rhythm. ABDOMEN: Soft, no tenderness. Left leg is currently dressed up with no obvious drainage on the dressing. LABS: Hemoglobin 11.7, white count 5.1, BUN of 9, creatinine 0.55. Initial wound culture with MSSA. DIAGNOSTIC IMPRESSION AND PLAN: Patient with left flank abscess and cellulitis, status post drainage culture with MSSA. Will discontinue the vancomycin and start the patient on cefazolin 2 g q.8 hours. on the basis of the clinical source and continue supportive care. MMODL / IJN: [id number] /
[2019-09-06] MEDS: INSULIN ASPART (NovoLOG) 100 UNIT/ML VIAL SQ SCH ×4 (07:59→23:23)
[2019-09-06 08:02] LABS: African American GFR (CKD) >90 (>60 ml/min/1.73 sqM); Anion Gap 5 mmol/L; Blood Urea Nitrogen 9 mg/dL (9-20); Calcium 8.5 mg/dL (8.4-10.2); Carbon Dioxide 25 mmol/L (22-30); Chloride 107 mmol/L (98-107); Glucose 225 mg/dL (74-99); Non-African American GFR(CKD) >90 (>60 ml/min/1.73 sqM); Potassium 4.3 mmol/L (3.5-5.1); Sodium 137 mmol/L (137-145)
[2019-09-06] MEDS: SODIUM CHLORIDE 0.9% 1,000 ML IV SCH (09:38)
--- NOTE | 2019-09-06 11:41 | P.PN ---
Subjective Progress Note Date: 09/06/19 The patient is doing well this morning and has minimal complaints. He denies fevers or chills. Objective - Vital Signs Vital signs: Vital Signs Temp 98.0 F 09/06/19 05:24 Pulse 86 09/06/19 05:24 Resp 18 09/06/19 08:00 BP 115/73 09/06/19 05:24 Pulse Ox 95 09/06/19 05:24 Intake & Output 09/05/19 09/06/19 09/06/19 18:59 06:59 18:59 Intake Total 200 Balance 200 Intake: Oral 200 Other: Voiding Method Toilet # Voids 2 1 3 # Bowel Movements 1 1 - Exam Inspection the patient has a clean wound VAC dressing and Manny wrap over the left leg. The Manny wrap and wound VAC were taken down and the wound was inspected. There is mild surrounding erythema, but the wound appeared clean with no gross purulence. - Labs CBC & Chem 7: 09/06/19 07:29 09/06/19 07:29 Labs: Abnormal Lab Results - Last 24 Hours (Table) 09/05/19 09/05/19 09/05/19 Range/Units 12:01 16:53 20:51 RBC (4.30-5.90) m/uL Hgb (13.0-17.5) gm/dL Hct (39.0-53.0) % Creatinine (0.66-1.25) mg/dL Glucose (74-99) mg/dL POC Glucose (mg/dL) 252 H 177 H 69 L (75-99) mg/dL 09/06/19 09/06/19 09/06/19 Range/Units 02:36 06:46 07:29 RBC 3.51 L (4.30-5.90) m/uL Hgb 10.8 L (13.0-17.5) gm/dL Hct 33.0 L (39.0-53.0) % Creatinine (0.66-1.25) mg/dL Glucose (74-99) mg/dL POC Glucose (mg/dL) 253 H 236 H (75-99) mg/dL 09/06/19 Range/Units 07:29 RBC (4.30-5.90) m/uL Hgb (13.0-17.5) gm/dL Hct (39.0-53.0) % Creatinine 0.57 L (0.66-1.25) mg/dL Glucose 225 H (74-99) mg/dL POC Glucose (mg/dL) (75-99) mg/dL Microbiology - Last 24 Hours (Table) 09/04/19 15:55 Gram Stain - Preliminary Leg - Left Wound Culture - Preliminary Presumptive Staph aureus 09/03/19 09:36 Blood Culture - Preliminary Blood No Growth after 48 hours 09/03/19 09:36 Gram Stain - Final Leg - Left Wound Culture - Final Staphylococcus aureus Assessment and Plan (1) Abscess Current Visit: Yes Status: Acute Code(s): L02.91 - CUTANEOUS ABSCESS, UNSP ECIFIED SNOMED Code(s): 720904547 (2) Abscess Current Visit: Yes Status: Acute Code(s): L02.91 - CUTANEOUS ABSCESS, UNSPECIFIED SNOMED Code(s): 755456710 (3) Abscess after procedure Current Visit: Yes Status: Acute Code(s): T81.49XA - INFECTION FOLLOWING A PROCEDURE, OTHER SURGICAL SITE, INIT SNOMED Code(s): 37987031098653685 (4) Left leg cellulitis Current Visit: Yes Status: Acute Code(s): L03.116 - CELLULITIS OF LEFT LOWER LIMB SNOMED Code(s): 116954922 Plan: The wound VAC was taken down this morning and the wound appeared clean with no gross purulence. A nonadherent dressing, fluffs, and Manny wrap was applied over the leg. I've no plan for further surgical debridement at this time. I will defer to infectious disease/wound care for ongoing management of the patient's infection and wound. We will continue to closely follow while the patient is an inpatient
[2019-09-06] MEDS: HYDROcodone/APAP 5-325MG 1 EACH TAB PO PRN (11:49)
[2019-09-06 11:55] LABS: Glucose,Whole Blood 114 mg/dL (75-99)
[2019-09-06] MEDS: ATORVASTATIN 40 MG TAB PO SCH (15:13)
[2019-09-06 16:59] LABS: Glucose,Whole Blood 172 mg/dL (75-99)
--- NOTE | 2019-09-06 17:51 | PN ---
PROGRESS NOTE DATE OF SERVICE: 09/06/2019 This 53-year-old gentleman admitted with significant infection, cellulitis and abscess, incision and drainage. The cultures are growing possible MSSA. The patient is being closely monitored. No chest pain. No palpitations. No fever. EXAM: Alert and oriented x3. Pulse is 87, blood pressure 147/84, respiration 18, temperature 97.9, pulse ox 94% on room air. HEENT: Conjunctivae normal. Oral mucosa moist. NECK: No jugular venous distention. No lymph node enlargement. CARDIOVASCULAR: S1, S2. RESPIRATORY: Diminished breath sounds at the bases. No scattered rhonchi, no crackles. ABDOMEN: Soft, nontender. LEGS: Status post right mendieta infection. NERVOUS SYSTEM: No focal deficits. LABS: WBC 3.8, hemoglobin 10.8, glucose 225 and 114. ASSESSMENT: 1. Left mendieta abscess with surrounding cellulitis with possible related diabetes type 2 with failure of outpatient treatment, status post excision, debridement and wound VAC application with possible MSSA. 2. Diabetes mellitus type 2, uncontrolled with hyperglycemia. 3. Hyponatremia. 4. Anemia, normocytic anemia of chronic disease. 5. History of asthma. 6. History of gastroesophageal reflux disease. 7. No evidence of osteomyelitis in the bone scan. 8. History of hyperlipidemia. 9. Hypertension. 10.Degenerative joint disease. 11.History of pneumonia. 12.History of sleep apnea. 13.History of peripheral neuropathy. 14.History of previous MRSA. 15.History ADD, ADHD, depression. 16.FULL CODE. RECOMMENDATIONS AND DISCUSSION: Recommend to continue current medications, continue to monitor, continue symptomatic treatment. Otherwise, at this time continue with antibiotics. MSSA grown from the 1st culture, 2nd culture is pending. Guarded prognosis. Further recommendations to follow. MMODL / IJN: [id number] /
[2019-09-06 20:26] LABS: Glucose,Whole Blood 65 mg/dL (75-99)
[2019-09-06 20:26] LABS: Glucose,Whole Blood 46 mg/dL (75-99)
[2019-09-06 20:43] LABS: Glucose,Whole Blood 67 mg/dL (75-99)
[2019-09-06 20:59] LABS: Glucose,Whole Blood 63 mg/dL (75-99)
[2019-09-06 20:59] LABS: Glucose,Whole Blood 43 mg/dL (75-99)
[2019-09-06 21:20] LABS: Glucose,Whole Blood 94 mg/dL (75-99)
[2019-09-07 00:39] LABS: Glucose,Whole Blood 190 mg/dL (75-99)
[2019-09-07] MEDS: SODIUM CHLORIDE 0.9% 1,000 ML IV SCH (00:48)
[2019-09-07 05:31] VITALS: BP 158/77; PULSE 89; TEMP 97.3
[2019-09-07 06:57] LABS: Glucose,Whole Blood 182 mg/dL (75-99)
[2019-09-07] MEDS: PANTOPRAZOLE 40 MG TABLET PO SCH (07:08)
[2019-09-07] MEDS: SERTRALINE 50 MG TAB PO SCH (07:08)
[2019-09-07] MEDS: LISINOPRIL 20 MG TAB PO SCH (07:09)
[2019-09-07] MEDS: HEPARIN SODIUM,PORCINE 5,000 UNIT/ML 1 ML VIAL SQ SCH (07:09)
[2019-09-07] MEDS: INSULN ASP PRT/INSULIN ASPART 100 UNIT/ML 10 ML VIAL SQ SCH (07:09)
[2019-09-07] MEDS: GABAPENTIN 300 MG CAP PO SCH (07:09)
--- NOTE | 2019-09-07 08:11 | PN ---
PROGRESS NOTE DATE OF SERVICE: 09/06/2019 REASON FOR FOLLOWUP: Left leg abscess and cellulitis MSSA. INTERVAL HISTORY: The patient is currently afebrile, has been breathing comfortably. Denies having any chest pain or any cough. No nausea, no vomiting. No abdominal pain or worsening pain to the left leg area. PHYSICAL EXAMINATION: Blood pressure 138/75 with a pulse of 95, temperature 96.9. He is 96% on room air. General description is a middle-aged male lying in bed in no distress. RESPIRATORY SYSTEM: Unlabored breathing, clear to auscultation anteriorly. HEART: S1, S2. Regular rate and rhythm. ABDOMEN: Soft, no tenderness. Left leg swelling and redness slightly decreased, no drainage. LABS: No new labs have been obtained today. Wound culture finalized with MSSA. DIAGNOSTIC IMPRESSION AND PLAN: Patient with left leg abscess and cellulitis, status post surgical drainage. Culture with MSSA. Patient seemed to show clinical improvement. Local wound care was switched over to dry Aquacel Silver dressing. On cefazolin, hopefully switch to oral Keflex in the morning if the patient continues to improve. Continue with supportive care. MMODL / IJN: [id number] /
[2019-09-07 08:44] VITALS: RESP 19
[2019-09-07] MEDS: INSULIN ASPART (NovoLOG) 100 UNIT/ML VIAL SQ SCH ×2 (10:42→13:04)
[2019-09-07 12:02] LABS: Glucose,Whole Blood 113 mg/dL (75-99)
--- NOTE | 2019-09-07 12:55 | P.PN ---
Subjective Progress Note Date: 09/07/19 This patient is a 53 year old male with a past medical history of hypertension and type 2 diabetes last A1c 12 that is status-post irrigation and debridement of left leg abscess 09/04/19. Wound vac was removed yesterday, and all wound care was deferred to Dr. Camp and the infectious disease/wound care team. Patient is examined with Dr. Machado. Patient states he is doing well today, and he feels well. There are no new complaints today. Vital signs stable. Objective - Vital Signs Vital signs: Vital Signs Temp 97.3 F L 09/07/19 05:00 Pulse 89 09/07/19 05:00 Resp 19 09/07/19 08:00 BP 158/77 09/07/19 05:00 Pulse Ox 97 09/07/19 05:00 Intake & Output 09/06/19 09/07/19 09/07/19 18:59 06:59 18:59 Intake Total 240 1000 Balance 240 1000 Intake: Oral 240 1000 Other: Voiding Method Toilet Toilet # Voids 1 1 1 # Bowel Movements 1 - Exam Patient is up to the bathroom, about to get into the shower at the time of examination, therefore the left lower extremity was unable to be examined at this time. Vital signs stable. - Labs CBC & Chem 7: 09/06/19 07:29 09/06/19 07:29 Labs: Abnormal Lab Results - Last 24 Hours (Table) 09/06/19 09/06/19 09/06/19 Range/Units 16:56 20:23 20:25 POC Glucose (mg/dL) 172 H 46 L 65 L (75-99) mg/dL 09/06/19 09/06/19 09/06/19 Range/Units 20:42 20:55 20:58 POC Glucose (mg/dL) 67 L 43 L 63 L (75-99) mg/dL 09/07/19 09/07/19 09/07/19 Range/Units 00:38 06:49 11:56 POC Glucose (mg/dL) 190 H 182 H 113 H (75-99) mg/dL Microbiology - Last 24 Hours (Table) 09/03/19 09:36 Blood Culture - Preliminary Blood No Growth after 96 hours 09/04/19 15:55 Gram Stain - Final Leg - Left Wound Culture - Final Staphylococcus aureus 09/04/19 15:55 Anaerobic Culture - Preliminary Leg - Left Assessment and Plan Assessment: Left lower extremity cellulitis abscess status-post irrigation and debridement on 09/04/19. Post-operative day #3. Plan: - Will defer all wound care and antibiotic choice to infectious disease. He is clear for discharge from an orthopedic standpoint. - We will continue to follow patient while he remains inpatient.
--- NOTE | 2019-09-07 14:15 | PN ---
PROGRESS NOTE DATE OF SERVICE: 09/07/2019 REASON FOR FOLLOWUP: Left leg abscess, cellulitis, MSSA. INTERVAL HISTORY: The patient is currently afebrile. The patient has been feeling better. Breathing comfortably. Denies having any chest pain, shortness of breath or cough. Pain and swelling of the left leg have improved and there is no further drainage. PHYSICAL EXAMINATION: Blood pressure 150/77 with a pulse of 89, temperature is 97.3. He is 97% on room air. General description is a middle-aged male up in the bed in no distress. RESPIRATORY SYSTEM: Unlabored breathing, clear to auscultation anteriorly. HEART: S1, S2. Regular rate and rhythm. ABDOMEN: Soft, no tenderness. Left leg swelling and redness has improved, no drainage. LABS: Wound culture with MSSA. No CBC was done today. DIAGNOSTIC IMPRESSION AND PLAN: Patient with left leg wound and cellulitis in this patient, status post drainage of this abscess. The patient refused antibiotic because of the cough associated with it. Antibiotic was switched over to Keflex 500 mg p.o. q.6 hours for 10 days. Prescription sent to the pharmacy. Local wound care with Aquacel Silver packing and [facility]. MMODL / IJN: [id number] /
--- NOTE | 2019-09-08 08:38 | DS ---
DISCHARGE SUMMARY DATE OF SERVICE: 09/07/2019 FINAL DIAGNOSES: 1. Left mendieta abscess with surrounding cellulitis with possible related to diabetes mellitus type 2 with failure of outpatient treatment, status post excisional debridement and wound VAC application with possible MSSA. 2. Diabetes mellitus type 2, uncontrolled with hyperglycemia. 3. No evidence of osteomyelitis currently. 4. Hyponatremia. 5. Anemia, normocytic anemia of chronic disease. 6. History of asthma. 7. History of gastroesophageal reflux disease. 8. History of hyperlipidemia. 9. Hypertension. 10.History of degenerative joint disease. 11.History of pneumonia. 12.History of sleep apnea. 13.History of peripheral neuropathy. 14.History of previous MRSA. 15.History ADD, ADHD and depression. 16.FULL CODE. DISCHARGE DISPOSITION: The patient will be discharged in a stable condition with guarded prognosis. HISTORY OF PRESENT ILLNESS: This is a 53-year-old gentleman with a past medical history of multiple medical problems admitted with left mendieta abscess. The patient had wound VAC initially but subsequently IV antibiotics recommended Infectious Disease. Dr. Machado saw the patient. On exam, vitals are stable. CARDIOVASCULAR: S1, S2. ABDOMEN: Soft. NERVOUS SYSTEM: Left mendieta abscess present. DISCHARGE ADVICE: 1. Diet is cardiac diet. 2. Activity limited until followup. 3. Follow up with Dr. Arias in 2-3 days. 4. Follow up with Dr. Camp as recommended. MEDICATIONS WILL BE FOLLOWS: 1. Insulin lispro 40 units a.c. t.i.d. 2. Lipitor 40 mg with supper. 3. Clotrimazole topically. 4. Neurontin 300 to 600 mg daily. 5. Prinivil 20 mg p.o. daily. 6. Ventolin HFA 1 to 2 puffs q.6 p.r.n. 7. Zoloft 50 mg daily. 8. Keflex 500 mg q.6 p.o. for 2 weeks. 9. Tylenol p.r.n. I have decided to start the patient on p.o. antibiotic instead of any IV antibiotics at this time. Recommend close followup with Dr. Camp also in the outpatient setting in 1 week. MMODL / IJN: [id number] /
== END 2019-09-07 14:48 | disposition home health service (06) | DRG 982 ==
LOC: EC 08:49 → 5NMEDONC 10:48 → 6NMEDSUR 19:34 → OBSVTOIN 09-06 13:48
PROVIDERS: ADMIT Hospitalist; ATTEND Hospitalist
PROC: 0QBH0ZZ Excision of Left Tibia, Open Approach (ICD-10-PCS; principal; 2019-09-04 12:40)
DX: E11.628 Type 2 diabetes mellitus with other skin complications (principal); L03.116 Cellulitis of left lower limb; E87.1 Hypo-osmolality and hyponatremia; L02.416 Cutaneous abscess of left lower limb; L97.829 Non-pressure chronic ulcer of other part of left lower leg with unspecified severity; B95.61 Methicillin susceptible Staphylococcus aureus infection as the cause of diseases classified elsewhere; E11.65 Type 2 diabetes mellitus with hyperglycemia; Z79.4 Long term (current) use of insulin; D63.8 Anemia in other chronic diseases classified elsewhere; E78.5 Hyperlipidemia, unspecified; G47.30 Sleep apnea, unspecified; E11.42 Type 2 diabetes mellitus with diabetic polyneuropathy; I10 Essential (primary) hypertension; J45.909 Unspecified asthma, uncomplicated; K21.9 Gastro-esophageal reflux disease without esophagitis; E11.622 Type 2 diabetes mellitus with other skin ulcer; M19.90 Unspecified osteoarthritis, unspecified site; M65.9 Synovitis and tenosynovitis, unspecified; Z79.899 Other long term (current) drug therapy; Z82.49 Family history of ischemic heart disease and other diseases of the circulatory system; Z83.3 Family history of diabetes mellitus; Z86.14 Personal history of Methicillin resistant Staphylococcus aureus infection; Z87.01 Personal history of pneumonia (recurrent); Z87.442 Personal history of urinary calculi; F90.9 Attention-deficit hyperactivity disorder, unspecified type; F32.9 Major depressive disorder, single episode, unspecified; Z88.8 Allergy status to other drugs, medicaments and biological substances
CPT/HCPCS: 36415; 78315; 80048; 80053; 80202; 83605; 85025; 85610; 85730; 87040; 87070; 87075; 87077; 87102; 87186; 87205; 93005; 96365; 96366; 99285

== ENCOUNTER → 2020-06-27 | Outpatient (CLI) | payer MEDICARE ==
--- NOTE | 2020-06-27 15:43 | US ---
EXAMINATION TYPE: US kidneys/renal and bladder DATE OF EXAM: 06/27/2020 COMPARISON: None CLINICAL HISTORY: 54-year-old male R31.9 Hematuria. Patient states having urine frequency with diffic ult flow. TECHNIQUE: Multiple sonographic images of the kidneys and bladder are obtained. FINDINGS: EXAM MEASUREMENTS: Right Kidney: 10.0 x 6.6 x 6.0 cm Left Kidney: 11.5 x 6.0 x 6.6 cm Right Kidney: Echogenic focus seen in lower pole = 0.5 cm Left Kidney: Upper to mid pole hypoechoic lesion measuring 1.9 x 2.0 x 1.8 cm it shows posterior thro ugh transmission. No hydronephrosis on either side. Bladder: distended, anechoic Bilateral Jets seen IMPRESSION: 1. No hydronephrosis. 2. A 2.0 cm hypoechoic lesion in the left kidney shows posterior through transmission and may represe nt a debris-filled cyst. Six-month follow-up ultrasound recommended to ensure stability. 3. 5 mm nonobstructive right renal calculus.
== END | disposition home or self-care (01) ==
LOC: RADUSWWP 14:20
PROVIDERS: ATTEND Urology
DX: N28.89 Other specified disorders of kidney and ureter (principal); N20.0 Calculus of kidney
CPT/HCPCS: 76770

== ENCOUNTER → 2020-12-10 | Outpatient (CLI) | payer MEDICARE ==
[2020-12-10 22:41] LABS: Basophils # (A) 0.05 X 10*3/uL (0.00-0.10); Basophils % (A) 0.7 %; Eosinophils # (A) 0.12 X 10*3/uL (0.04-0.35); Eosinophils % (A) 1.6 %; HCT 39.9 % (39.6-50.0); HGB 12.7 g/dL (13.0-17.0); Lymphocytes # (A) 1.97 X 10*3/uL (0.90-5.00); Lymphocytes % (A) 26.5 %; MCH 30.8 pg (27.0-32.0); MCHC 31.8 g/dL (32.0-37.0); MCV 96.6 fL (80.0-97.0); Mean Platelet Volume 10.8 fL (9.5-12.2); Monocytes # (A) 0.56 X 10*3/uL (0.20-1.00); Monocytes % (A) 7.5 %; Neutrophils % (A) 63.4 %; Platelet Count 245 X 10*3/uL (140-440); RBC 4.13 X 10*6/uL (4.40-5.60); RDW 11.8 % (11.5-14.5); WBC 7.42 X 10*3/uL (4.50-10.00)
[2020-12-11 02:25] LABS: African American GFR (CKD) 97.1 (60.0-200.0); Anion Gap 7.8 mmol/L (4.00-12.00); Carbon Dioxide 25.2 mmol/L (21.6-31.8); Non-African American GFR(CKD) 83.8 (60.0-200.0); Potassium 5.1 mmol/L (3.5-5.5)
== END | disposition home or self-care (01) ==
LOC: LABWHC1 13:18
PROVIDERS: ATTEND Urology
DX: N40.1 Benign prostatic hyperplasia with lower urinary tract symptoms (principal)
CPT/HCPCS: 36415; 80048; 85025

== ENCOUNTER 2021-07-23 11:16 | Inpatient (IN) | payer MEDICARE ==
[2021-07-23] MEDS ORDERED: MORPHINE SULFATE 4 MG/ML SYRINGE IVP STA (14:40)
[2021-07-23] MEDS ORDERED: ONDANSETRON 4 MG/2 ML VIAL IVP STA (14:40)
--- NOTE | 2021-07-23 14:42 | ED ---
Lower Extremity Injury HPI - General Source: patient, family, RN notes reviewed Mode of arrival: wheelchair Limitations: no limitations <Eleuterio Dougherty - Last Filed: 07/23/21 14:41> <Osmar Vasquez - Last Filed: 07/23/21 17:08> - General Chief Complaint: Extremity Injury, Lower Stated Complaint: Lt Foot Wound - History of Present Illness Initial Comments: This is a 55-year-old male presents emergency Department chief complaint of left foot infection. Patient states started over a week ago. He was placed on antibiotics for urgent care states he started developing a rash to his leg. Patient states that he's had increasing drainage friends, swelling. He is a known diabetic. Patient states he try to contact his primary care physician who told him he could see him next week. Patient denies any denies fevers or chills. Patient he states it is very painful, rash on his leg is painful. (Eleuterio Dougherty) - Related Data Home Medications Medication Instructions Recorded Confirmed Albuterol Sulfate [Ventolin HFA] 1 - 2 puff INHALATION RT-Q6H PRN 10/16/14 07/23/21 Gabapentin [Neurontin] 300 mg PO TID PRN 10/16/14 07/23/21 lisinopriL [Prinivil] 20 mg PO DAILY 10/16/14 07/23/21 Atorvastatin [Lipitor] 40 mg PO W/SUPPER 09/03/19 07/23/21 Dulaglutide [Trulicity] 1.5 mg SQ RIDER 07/23/21 07/23/21 Insulin NPH Hum/Reg Insulin Hm 40 unit SQ BID 07/23/21 07/23/21 [NovoLIN 70-30 100 UNIT/ML VIAL] hydroCHLOROthiazide [Hydrodiuril] 25 mg PO DAILY 07/23/21 07/23/21 Previous Rx's Medication Instructions Recorded Acetaminophen Tab [Tylenol] 650 mg PO Q6HR PRN tab 09/07/19 Allergies Allergy/AdvReac Type Severity Reaction Status Date / Time cephalexin [From Keflex] Allergy Rash/Hives Verified 07/23/21 16:02 phenobarbital AdvReac Unknown Verified 07/23/21 16:02 Childhood Review of Systems ROS Other: All systems not noted in ROS Statement are negative. <Eleuterio Dougherty - Last Filed: 07/23/21 14:41> ROS Other: All systems not noted in ROS Statement are negative. <Avery Vasquezssreynaldo Eaton - Last Filed: 07/23/21 17:08> ROS Statement: Those systems with pertinent positive or pertinent negative responses have been documented in the HPI. Past Medical History Past Medical History: Asthma, Diabetes Mellitus, GERD/Reflux, Hyperlipidemia, Hypertension, Osteoarthritis (OA), Pneumonia, Sleep Apnea/CPAP/BIPAP Additional Past Medical History / Comment(s): neuropathy, sleep apnea in past with use of cpap but since lost over 100 pounds does;nt need machine any more,kidney stones, uti,PAST STAPH INFECTION RT EYE STATED NOT MRSA. [place] severe cold [place] had skin damage to both feet, most cleared up with excpetion of rt great toe. History of Any Multi-Drug Resistant Organisms: MRSA Date of last positivie culture/infection: 2013 MDRO Source:: RT toe Past Surgical History: Adenoidectomy, Tonsillectomy Additional Past Surgical History / Comment(s): I&D of rt great toe Past Anesthesia/Blood Transfusion Reactions: No Reported Reaction Past Psychological History: ADD/ADHD, Depression Smoking Status: Never smoker Past Alcohol Use History: Occasional Past Drug Use History: None Reported - Past Family History Father Family Medical History: Coronary Artery Disease (CAD) Mother Family Medical History: Coronary Artery Disease (CAD), Diabetes Mellitus <Eleuterio Dougherty M - Last Filed: 07/23/21 14:41> General Exam Limitations: no limitations General appearance: alert, in no apparent distress Head exam: Present: atraumatic, normocephalic, normal inspection Respiratory exam: Present: normal lung sounds bilaterally. Absent: respiratory distress, wheezes, rales, rhonchi, stridor Cardiovascular Exam: Present: regular rate, normal rhythm, normal heart sounds. Absent: systolic murmur, diastolic murmur, rubs, gallop, clicks Extremities exam: Present: other (Left foot first digit there is extensive sloughing skin, gangrene noted, erythema extends to the mid foot with swelling, there is petechial type rash with large areas of the calf, pulses are palpable) Skin exam: Present: warm, dry <Eleuterio Dougherty M - Last Filed: 07/23/21 14:41> Course Vital Signs 11/18/21 11/18/21 11/18/21 12:00 15:43 16:34 Temperature 98.1 F Pulse Rate 102 H 101 H 100 Respiratory 18 18 16 Rate Blood Pressure 180/86 195/89 175/77 O2 Sat by Pulse 96 97 95 Oximetry Medical Decision Making - Lab Data Result diagrams: 07/23/21 15:08 07/23/21 15:08 <Osmar Vasquez - Last Filed: 07/23/21 17:08> - Medical Decision Making Patient care continues to be by previous shift physician licensed occupational therapy assistant, Eleuterio Dougherty. Briefly, patient is a 55-year-old male past medical history of diabetes presents to the emergency department for worsening foot wound on the left foot. Use was seen in the urgent care 3 days ago prescribed Keflex. States that his symptoms look worse prompting him to come to the emergency department today. Patient is well-appearing at the bedside. He denies any symptoms. He has history of neuropathy and has chronic numbness to his legs. He does appear to be a significant wound to his left foot. He is a diabetic and has multiple wound risk factors. There is concern that patient's symptoms are secondary to pseudomonal infection. He started on broad-spectrum antibiotics. Does have a petechial rash but is well-appearing is afebrile not tachycardic at the bedside. Says could be a sign of systemic infection. Patient's left toe looks gangrenous with surrounding cellulitic erythema to the left dorsal foot. Foot x-ray shows signs of soft tissue infection. No signs of osteomyelitis at this time. Laboratory evaluation obtained. No leukocytosis. Metabolic panel shows sodium 131. BUN of 30. Glucose 31. No leg acidosis. Elevated CRP. Case discussed with Dr. Dey was went except patient's care. Infectious disease and vascular surgery will be consulted. (Osmar Vasquez) - Lab Data Lab Results 07/23/21 07/23/21 07/23/21 Range/Units 15:08 15:08 15:33 WBC 10.0 (3.8-10.6) k/uL RBC 3.76 L (4.30-5.90) m/uL Hgb 11.6 L (13.0-17.5) gm/dL Hct 35.8 L (39.0-53.0) % MCV 95.3 (80.0-100.0) fL MCH 31.0 (25.0-35.0) pg MCHC 32.5 (31.0-37.0) g/dL RDW 11.4 L (11.5-15.5) % Plt Count 399 (150-450) k/uL MPV 7.2 Neutrophils % 83 % Lymphocytes % 12 % Monocytes % 3 % Eosinophils % 1 % Basophils % 0 % Neutrophils # 8.3 H (1.3-7.7) k/uL Lymphocytes # 1.2 (1.0-4.8) k/uL Monocytes # 0.3 (0-1.0) k/uL Eosinophils # 0.1 (0-0.7) k/uL Basophils # 0.0 (0-0.2) k/uL Sodium 131 L (137-145) mmol/L Potassium 5.6 H (3.5-5.1) mmol/L Chloride 98 (98-107) mmol/L Carbon Dioxide 26 (22-30) mmol/L Anion Gap 7 mmol/L BUN 30 H (9-20) mg/dL Creatinine 0.88 (0.66-1.25) mg/dL Est GFR (CKD-EPI)AfAm >90 (>60 ml/min/1.73 sqM) Est GFR (CKD-EPI)NonAf >90 (>60 ml/min/1.73 sqM) Glucose 381 H (74-99) mg/dL Plasma Lactic Acid Jaxson 1.1 (0.7-2.0) mmol/L Calcium 8.9 (8.4-10.2) mg/dL Total Bilirubin 0.5 (0.2-1.3) mg/dL AST 17 (17-59) U/L ALT 11 (4-49) U/L Alkaline Phosphatase 169 H (38-126) U/L C-Reactive Protein 6.2 H (<1.0) mg/dL Total Protein 7.1 (6.3-8.2) g/dL Albumin 3.2 L (3.5-5.0) g/dL Disposition <Eleuterio Dougherty M - Last Filed: 07/23/21 14:41> <Osmar Vasquez - Last Filed: 07/23/21 17:08> Clinical Impression: Gangrene Disposition: ADMITTED IP TO THIS HOSP Condition: Fair
--- NOTE | 2021-07-23 15:05 | XR ---
EXAMINATION TYPE: XR foot complete LT DATE OF EXAM: 07/23/2021 CLINICAL HISTORY: pain TECHNIQUE: Frontal, lateral and oblique images of the left foot are obtained. COMPARISON: None. FINDINGS: There is no acute fracture/dislocation evident. The joint spaces appear within normal jean its. Soft tissue wound left great toe with a small amount of soft tissue air noted. Air forming infec tion difficult to exclude. No definite evidence for osteomyelitis at this time. If there is concern f or osteomyelitis consider WBC scan. IMPRESSION: There is no acute fracture or dislocation. Soft tissue infection. See above. ICD 10 NO FRACTURE, INITIAL EVALUATION
[2021-07-23] MEDS ORDERED: VANCOMYCIN IV PER PHARMACY 1 EACH MISC MISCELLANE PRN (15:12)
[2021-07-23] MEDS ORDERED: PIPERACILLIN-TAZOBACTAM 3.375 GM in SODIUM CHLORIDE 0.9% 100 ML IVPB STA (15:13)
[2021-07-23] MEDS ORDERED: VANCOMYCIN 1,750 MG in SODIUM CHLORIDE 0.9% 500 ML 500 ML IVPB ONE (15:15)
[2021-07-23 15:20] LABS: Basophils % (A) 0 %; Eosinophils # (A) 0.1 k/uL (0-0.7); Eosinophils % (A) 1 %; HCT 35.8 % (39.0-53.0); HGB 11.6 gm/dL (13.0-17.5); Lymphocytes # (A) 1.2 k/uL (1.0-4.8); Lymphocytes % (A) 12 %; MCHC 32.5 g/dL (31.0-37.0); MCV 95.3 fL (80.0-100.0); Mean Platelet Volume 7.2; Monocytes # (A) 0.3 k/uL (0-1.0); Monocytes % (A) 3 %; Neutrophils # (A) 8.3 k/uL (1.3-7.7); Neutrophils % (A) 83 %; Platelet Count 399 k/uL (150-450); RBC 3.76 m/uL (4.30-5.90); RDW 11.4 % (11.5-15.5)
[2021-07-23 15:32] LABS: ALT 11 U/L (4-49); AST 17 U/L (17-59); African American GFR (CKD) >90 (>60 ml/min/1.73 sqM); Albumin 3.2 g/dL (3.5-5.0); Alkaline Phosphatase 169 U/L (38-126); Anion Gap 7 mmol/L; Blood Urea Nitrogen 30 mg/dL (9-20); C Reactive Protein 6.2 mg/dL (<1.0); Calcium 8.9 mg/dL (8.4-10.2); Carbon Dioxide 26 mmol/L (22-30); Chloride 98 mmol/L (98-107); Glucose 381 mg/dL (74-99); Non-African American GFR(CKD) >90 (>60 ml/min/1.73 sqM); Potassium 5.6 mmol/L (3.5-5.1); Sodium 131 mmol/L (137-145); Total Bilirubin 0.5 mg/dL (0.2-1.3); Total Protein 7.1 g/dL (6.3-8.2)
[2021-07-23] MEDS ORDERED: ACETAMINOPHEN TAB 325 MG TAB PO PRN (15:52)
[2021-07-23] MEDS ORDERED: NALOXONE 0.4 MG/ML 1 ML VIAL IV PRN (15:52)
[2021-07-23] MEDS ORDERED: MORPHINE SULFATE 4 MG/ML SYRINGE IV PRN (15:52)
[2021-07-23] MEDS: SODIUM CHLORIDE 0.9% 1,000 ML IV SCH (16:33)
[2021-07-23] MEDS ORDERED: SODIUM POLYSTYRENE SULFONATE 15 GM/60 ML BOTTLE PO STA (21:22)
[2021-07-23 21:34] LABS: Glucose,Whole Blood 408 mg/dL (75-99)
[2021-07-23] MEDS: ATORVASTATIN 40 MG TAB PO SCH (21:43)
[2021-07-23] MEDS: INSULIN ASPART (NovoLOG) 100 UNIT/ML VIAL SQ SCH (21:44)
[2021-07-23] MEDS ORDERED: CALCIUM CARBONATE 500 MG CHEWABLE PO PRN (21:51)
[2021-07-23] MEDS ORDERED: MELATONIN 3 MG TABLET PO PRN (21:51)
[2021-07-23] MEDS ORDERED: ALPRAZolam 0.25 MG TAB PO PRN (21:51)
[2021-07-23] MEDS ORDERED: LACTULOSE 20 GM/30 ML CUP PO PRN (21:51)
[2021-07-23] MEDS ORDERED: MAGNESIUM HYDROXIDE 2,400 MG/10 ML CUP PO PRN (21:51)
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
--- NOTE | 2021-07-23 22:33 | XR ---
EXAMINATION TYPE: XR chest 2V DATE OF EXAM: 07/23/2021 COMPARISON: NONE TECHNIQUE: PA and lateral views submitted. HISTORY: Chills FINDINGS: The lungs are clear and there is no pneumothorax or pleural effusion. Linear changes lateral right l david base. Mild hyperinflation. Mild degenerative change of the spine. Coarsened perihilar interstiti um. IMPRESSION: 1. Correlate for bronchitis or mild central interstitial pneumonitis. 2. Linear changes right lung base laterally favor atelectasis over infiltrate correlate clinically..
[2021-07-23] MEDS: INSULIN DETEMIR (LEVEMIR) 100 UNIT/ML SYR SQ SCH (23:19)
[2021-07-23] MEDS: ENOXAPARIN 40 MG/0.4 ML SYRINGE SQ SCH (23:19)
[2021-07-23] MEDS: AMPICILLIN-SULBACTAM 3 GM in SODIUM CHLORIDE 0.9% 100 ML IVPB SCH (23:27)
--- NOTE | 2021-07-24 00:23 | US ---
EXAMINATION TYPE: US venous doppler duplex LE DATE OF EXAM: 07/23/2021 11:03 PM COMPARISON: US 10/23/14 CLINICAL HISTORY: Lower extremity swelling. Wound left foot. Bilateral leg swelling x 10 days SIDE PERFORMED: Bilateral TECHNIQUE: The lower extremity deep venous system is examined utilizing real time linear array sonog jessica with graded compression, doppler sonography and color-flow sonography. VESSELS IMAGED: Common Femoral Vein Deep Femoral Vein Greater Saphenous Vein * Femoral Vein Popliteal Vein Small Saphenous Vein * Proximal Calf Veins (* superficial vessels) Right Leg: Negative for DVT Left Leg: Negative for DVT IMPRESSION: Grayscale, color doppler, spectral doppler imaging performed of the deep veins of the lo wer extremities. There is normal flow, compressibility, vascular waveforms.
[2021-07-24] MEDS ORDERED: VANCOMYCIN 1,750 MG in SODIUM CHLORIDE 0.9% 500 ML 500 ML IVPB SCH (05:00)
[2021-07-24] MEDS: SODIUM CHLORIDE 0.9% 1,000 ML IV SCH ×2 (05:00→20:24)
[2021-07-24 06:13] LABS: Glucose,Whole Blood 327 mg/dL (75-99)
[2021-07-24 06:37] LABS: Basophils % (A) 0 %; Eosinophils # (A) 0.1 k/uL (0-0.7); Eosinophils % (A) 2 %; HCT 32.1 % (39.0-53.0); HGB 10.4 gm/dL (13.0-17.5); Lymphocytes # (A) 1.1 k/uL (1.0-4.8); Lymphocytes % (A) 13 %; MCH 31.1 pg (25.0-35.0); MCHC 32.4 g/dL (31.0-37.0); MCV 96.1 fL (80.0-100.0); Mean Platelet Volume 7.1; Monocytes # (A) 0.3 k/uL (0-1.0); Monocytes % (A) 4 %; Neutrophils # (A) 6.7 k/uL (1.3-7.7); Neutrophils % (A) 79 %; Platelet Count 344 k/uL (150-450); RBC 3.34 m/uL (4.30-5.90); RDW 11.4 % (11.5-15.5); WBC 8.4 k/uL (3.8-10.6)
[2021-07-24 06:48] LABS: African American GFR (CKD) 72 (>60 ml/min/1.73 sqM); Anion Gap 3 mmol/L; Blood Urea Nitrogen 31 mg/dL (9-20); Calcium 8.4 mg/dL (8.4-10.2); Carbon Dioxide 27 mmol/L (22-30); Chloride 100 mmol/L (98-107); Glucose 328 mg/dL (74-99); Non-African American GFR(CKD) 62 (>60 ml/min/1.73 sqM); Potassium 5.6 mmol/L (3.5-5.1); Sodium 130 mmol/L (137-145)
[2021-07-24] MEDS: ALBUTEROL NEBULIZED 2.5 MG/3 ML INHALATION PRN (07:11)
[2021-07-24] MEDS: INSULIN ASPART (NovoLOG) 100 UNIT/ML VIAL SQ SCH ×7 (08:18→20:26)
[2021-07-24] MEDS: AMPICILLIN-SULBACTAM 3 GM in SODIUM CHLORIDE 0.9% 100 ML IVPB SCH ×2 (08:18→16:23)
[2021-07-24] MEDS ORDERED: lisinopriL 20 MG TAB PO SCH (09:00)
--- NOTE | 2021-07-24 09:40 | CONS ---
CONSULTATION This is a 55-year-old gentleman who came to the emergency room last night with history of wet gangrene of the left foot big toe. The patient had this gangrene changes for the last 1 week. It there was marked redness noted and gangrene changes noted to the big toe. PAST MEDICAL HISTORY: History of diabetes, hypertension, eczema, patient had right and left big toe wound debridement done in the past. PERSONAL HISTORY: No history of smoking. Patient had left petechiae all over his body for the last one week. According to the patient, he was treated with the Keflex. PHYSICAL EXAMINATION: Patient was seen in his room. NECK: Supple. Trachea central. CHEST: Clear to auscultation. First and second sounds normal. ABDOMEN: Soft, nontender. VASCULAR examination: Brachial, radial and femoral pulses are 1+. PT/DP by the Doppler. Left foot big toe has wet gangrene with cellulitis and redness noted on the dorsal aspect of the foot. PLAN: Left big toe amputation at metatarsophalangeal joint. Wound to be kept open because there was marked cellulitis noted on the dorsum aspect of the foot and risk and complications discussed with the patient. MMODL / IJN: [id number] /
[2021-07-24 13:02] LABS: Glucose,Whole Blood 210 mg/dL (75-99)
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
[2021-07-24] MEDS ORDERED: LACTATED RINGERS 1,000 ML IV ONE (13:51)
[2021-07-24] MEDS ORDERED: ONDANSETRON 4 MG/2 ML VIAL IVP ONE (14:22)
[2021-07-24] MEDS ORDERED: PROPOFOL 10 MG/ML 20 ML VIAL IV ONE (14:27)
[2021-07-24] MEDS ORDERED: fentaNYL (PF) 50 MCG/ML 2 ML AMP ONE (14:27)
[2021-07-24] MEDS ORDERED: MIDAZOLAM 2 MG/2 ML VIAL ONE (14:27)
[2021-07-24] MEDS ORDERED: LIDOCAINE 1% INJ 10MG/ML (20 ML MDV) SQ ONE (14:31)
[2021-07-24 15:22] VITALS: BMI 34.2
[2021-07-24] MEDS: ATORVASTATIN 40 MG TAB PO SCH (16:23)
[2021-07-24 17:40] LABS: Glucose,Whole Blood 193 mg/dL (75-99)
[2021-07-24] MEDS: INSULIN DETEMIR (LEVEMIR) 100 UNIT/ML SYR SQ SCH (20:26)
[2021-07-24] MEDS: ENOXAPARIN 40 MG/0.4 ML SYRINGE SQ SCH (20:27)
[2021-07-24] MEDS: METOPROLOL TARTRATE 50 MG TAB PO SCH (20:27)
[2021-07-24 20:47] LABS: Glucose,Whole Blood 228 mg/dL (75-99)
--- NOTE | 2021-07-24 20:52 | OP ---
OPERATIVE REPORT PREOPERATIVE DIAGNOSIS: Wet gangrene of the left foot big toe. POSTOP DIAGNOSE: Wet gangrene of the left foot big toe. OPERATION: Ray amputation of the left foot big toe. INDICATIONS: This patient came to the ER with history of 1 week of gangrene changes to the left big toe. Patient came with gangrene changes and blister formation on the left big toe plantar and dorsal aspect. Patient had these symptoms for the last 1 week. The left big toe has wet gangrene and blister formation noted. DESCRIPTION OF PROCEDURE: The patient was brought to the operating room. Left leg was prepped and drapes applied in a sterile manner. An elliptical incision was made on the dorsal aspect of the foot. Deepened through skin fat and fascia. This incision was extended to the plantar aspect of the foot, deepened through skin fat and fascia. Tendons were divided on the plantar and dorsal aspect of the foot until we reached the metatarsophalangeal joint area. The ligaments were divided and big toe was removed. There was some bleeding points which were electrocoagulated and suture ligated. There was also noted some dorsal aspect of the foot has some redness, we could not close the wound, the wound was kept open. Hemostasis was well controlled and Aquacel silver rope was placed to the wound. Pressure dressing applied. Patient tolerated the procedure well. MMODL / IJN: [id number] /
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
[2021-07-25] MEDS: ACETAMINOPHEN TAB 325 MG TAB PO PRN ×2 (01:52→16:21)
[2021-07-25 07:14] LABS: Glucose,Whole Blood 223 mg/dL (75-99)
[2021-07-25 07:44] LABS: African American GFR (CKD) 60 (>60 ml/min/1.73 sqM); Anion Gap 5 mmol/L; Blood Urea Nitrogen 34 mg/dL (9-20); Calcium 8.2 mg/dL (8.4-10.2); Carbon Dioxide 26 mmol/L (22-30); Chloride 102 mmol/L (98-107); Glucose 222 mg/dL (74-99); Non-African American GFR(CKD) 52 (>60 ml/min/1.73 sqM); Potassium 4.9 mmol/L (3.5-5.1); Sodium 133 mmol/L (137-145)
[2021-07-25 07:56] LABS: Basophils % (A) 0 %; Eosinophils # (A) 0.2 k/uL (0-0.7); Eosinophils % (A) 2 %; HCT 29.3 % (39.0-53.0); HGB 9.6 gm/dL (13.0-17.5); Lymphocytes # (A) 1.4 k/uL (1.0-4.8); Lymphocytes % (A) 17 %; MCH 31.2 pg (25.0-35.0); MCHC 32.8 g/dL (31.0-37.0); MCV 95.2 fL (80.0-100.0); Mean Platelet Volume 7.4; Monocytes # (A) 0.3 k/uL (0-1.0); Monocytes % (A) 4 %; Neutrophils # (A) 6.1 k/uL (1.3-7.7); Neutrophils % (A) 75 %; Platelet Count 343 k/uL (150-450); RBC 3.08 m/uL (4.30-5.90); RDW 11.4 % (11.5-15.5); WBC 8.2 k/uL (3.8-10.6)
[2021-07-25] MEDS: METOPROLOL TARTRATE 50 MG TAB PO SCH ×2 (08:49→20:28)
[2021-07-25] MEDS: INSULIN ASPART (NovoLOG) 100 UNIT/ML VIAL SQ SCH ×7 (08:49→20:28)
[2021-07-25] MEDS: SODIUM CHLORIDE 0.9% 1,000 ML IV SCH ×2 (08:50→23:24)
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
[2021-07-25 12:39] LABS: Glucose,Whole Blood 188 mg/dL (75-99)
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
--- NOTE | 2021-07-25 13:29 | PN ---
PROGRESS NOTE This patient had wet gangrene of the big toe. Patient underwent ray amputation. Today we changed the dressing. We have used Santyl cream, which will be continued. The patient is on IV antibiotic. Continue with local wound care. MMODL / IJN: [id number] /
[2021-07-25] MEDS: COLLAGENASE 250 UNIT/GM OINTMENT 30 GM TUBE TOPICAL SCH (14:00)
[2021-07-25 14:58] LABS: Amorphous Sediment,Urine Moderate /hpf; Appearance,Urine Cloudy (Clear); Bacteria,Urine Rare /hpf; Bilirubin,Urine Negative (Negative); Blood,Urine Large (Negative); Color,Urine Yellow; Glucose,Urine (UA) 1+ (Negative); Hyaline Casts,Urine 38 /lpf (0-2); Ketones,Urine Negative (Negative); Leukocyte Esterase,Urine Negative (Negative); Mucus,Urine Occasional /hpf; Nitrite,Urine Negative (Negative); PH, Urine 5.5 (5.0-8.0); Protein,Urine 3+ (Negative); RBC,Urine 45 /hpf (0-5); Specific Gravity,Urine 1.021 (1.001-1.035); Squamous Epithelial Cell,Urine <1 /hpf (0-4); WBC,Urine 7 /hpf (0-5)
[2021-07-25] MEDS ORDERED: VANCOMYCIN TROUGH DUE 1 EACH MISC MISCELLANE ONE (16:00)
[2021-07-25 17:10] LABS: Glucose,Whole Blood 242 mg/dL (75-99)
[2021-07-25] MEDS: ATORVASTATIN 40 MG TAB PO SCH (18:15)
[2021-07-25 20:10] LABS: Glucose,Whole Blood 265 mg/dL (75-99)
--- NOTE | 2021-07-25 20:11 | PN ---
PROGRESS NOTE DATE OF SERVICE: 07/25/2021 REASON FOR FOLLOWUP: Left big toe gangrene. INTERVAL HISTORY: The patient is currently afebrile. The patient is breathing comfortably. The patient denies having any chest pain or shortness of breath or cough. No abdominal pain or any worsening pain to the left big toe amputation site. PHYSICAL EXAMINATION: Blood pressure 172/81 with a pulse of 91, temperature 98.7. He is 96% on room air. General description is a middle-aged male lying in bed in no distress. Respiratory system: Unlabored breathing, clear to auscultation anteriorly. Heart S1, S2. Regular rate and rhythm. Abdomen soft, no tenderness. Left foot is currently dressed. No obvious drainage on the dressing. LABS: Creatinine is 1.48, white count 8.2. Cultures are currently pending. DIAGNOSTIC IMPRESSION AND PLAN: Patient with left big toe gangrene with underlying diabetes mellitus in this patient who is status post left big toe amputation. Cultures are currently pending. Patient is covered with Unasyn and continue supportive care. MMODL / IJN: [id number] /
[2021-07-25] MEDS: ENOXAPARIN 40 MG/0.4 ML SYRINGE SQ SCH (20:28)
[2021-07-25] MEDS: INSULIN DETEMIR (LEVEMIR) 100 UNIT/ML SYR SQ SCH (20:48)
[2021-07-25] MEDS: AMPICILLIN-SULBACTAM 3 GM in SODIUM CHLORIDE 0.9% 100 ML IVPB SCH (23:23)
[2021-07-26] MEDS: AMPICILLIN-SULBACTAM 3 GM in SODIUM CHLORIDE 0.9% 100 ML IVPB SCH ×3 (05:03→16:32)
[2021-07-26 07:29] LABS: Glucose,Whole Blood 166 mg/dL (75-99)
[2021-07-26] MEDS: COLLAGENASE 250 UNIT/GM OINTMENT 30 GM TUBE TOPICAL SCH (08:19)
[2021-07-26] MEDS: METOPROLOL TARTRATE 50 MG TAB PO SCH ×2 (08:22→20:55)
[2021-07-26] MEDS: INSULIN ASPART (NovoLOG) 100 UNIT/ML VIAL SQ SCH ×7 (08:23→20:54)
[2021-07-26 08:42] LABS: African American GFR (CKD) 70 (>60 ml/min/1.73 sqM); Anion Gap 6 mmol/L; Blood Urea Nitrogen 37 mg/dL (9-20); Calcium 8.5 mg/dL (8.4-10.2); Carbon Dioxide 24 mmol/L (22-30); Chloride 103 mmol/L (98-107); Glucose 152 mg/dL (74-99); Non-African American GFR(CKD) 61 (>60 ml/min/1.73 sqM); Potassium 4.9 mmol/L (3.5-5.1); Sodium 133 mmol/L (137-145)
[2021-07-26] MEDS: SODIUM CHLORIDE 0.9% 1,000 ML IV SCH (12:36)
[2021-07-26 12:41] LABS: Glucose,Whole Blood 112 mg/dL (75-99)
--- NOTE | 2021-07-26 12:50 | P.PN ---
Subjective Progress Note Date: 07/26/21 Principal diagnosis: This is a 55-year-old is patient seen in consultation because of acute kidney injury secondary to a gangrenous toe after injury to the toe. He is status post amputation of the left big toe on 07/24/2021. He is known with diabetes for the last 16 years, no history of kidney disease creatinine was 0.8 on 07/23/2021 Is afebrile vital signs are stable, urine output is documented at 450 mL only creatinine though has come down from 1.48-1.31 today Objective - Vital Signs Vital signs: Vital Signs Temp 98.3 F 07/26/21 05:00 Pulse 85 07/26/21 08:50 Resp 16 07/26/21 08:50 BP 136/72 07/26/21 08:15 Pulse Ox 96 07/26/21 05:00 Intake & Output 07/25/21 07/26/21 07/26/21 18:59 06:59 18:59 Output Total 450 300 Balance -450 -300 Output: Urine 450 300 Other: Voiding Method Urinal Urinal # Voids 2 2 2 On examination awake alert oriented comfortable HEENT exam no JVP neck is supple no facial asymmetry Lungs clear to auscultation good air entry bilaterally Heart unremarkable for any murmur rub gallop Abdomen soft nontender no masses felt non-distended Extremity exam reveals no edema Neurologically awake alert oriented - Labs CBC & Chem 7: 07/25/21 06:36 07/26/21 07:41 Labs: Abnormal Lab Results - Last 24 Hours (Table) 07/25/21 07/25/21 07/25/21 Range/Units 14:00 17:09 20:09 Sodium (137-145) mmol/L BUN (9-20) mg/dL Creatinine (0.66-1.25) mg/dL Glucose (74-99) mg/dL POC Glucose (mg/dL) 242 H 265 H (75-99) mg/dL Urine Protein 3+ H (Negative) Urine Glucose (UA) 1+ H (Negative) Urine Blood Large H (Negative) Urine RBC 45 H (0-5) /hpf Urine WBC 7 H (0-5) /hpf Amorphous Sediment Moderate H (None) /hpf Urine Bacteria Rare H (None) /hpf Hyaline Casts 38 H (0-2) /lpf Urine Mucus Occasional H (None) /hpf 07/26/21 07/26/21 07/26/21 Range/Units 07:28 07:41 12:40 Sodium 133 L (137-145) mmol/L BUN 37 H (9-20) mg/dL Creatinine 1.31 H (0.66-1.25) mg/dL Glucose 152 H (74-99) mg/dL POC Glucose (mg/dL) 166 H 112 H (75-99) mg/dL Urine Protein (Negative) Urine Glucose (UA) (Negative) Urine Blood (Negative) Urine RBC (0-5) /hpf Urine WBC (0-5) /hpf Amorphous Sediment (None) /hpf Urine Bacteria (None) /hpf Hyaline Casts (0-2) /lpf Urine Mucus (None) /hpf Microbiology - Last 24 Hours (Table) 07/24/21 15:07 Gram Stain - Preliminary Toe - Left First Tissue Culture - Preliminary Group D Enterococcus 07/23/21 15:33 Blood Culture - Preliminary Blood No Growth after 48 hours 07/23/21 15:08 Blood Culture - Preliminary Blood No Growth after 48 hours 07/24/21 15:07 Anaerobic Culture - Preliminary Toe - Left First Assessment and Plan Assessment: Impression 1. Acute kidney injury secondary to prerenal factors from gangrenous toe. Creatinine went up from 0.82 1.48 him improved to 1.31 this morning. He has rash and is legs and was on antibiotics possibly of acute interstitial nephritis will be considered, but because the creatinine is coming down will just watch it. 2. Wet gangrene of the left big toe status post amputation dated 07/24/2021 3. History of diabetes mellitus and age [age] years ago blood sugars are re asonably controlled 4. Hyperkalemia potassium was 5.6 on admission on 07/23/2021 and went up 6 as of yesterday, is down to 4.9 today. Likely from acute kidney injury, lisinopril as well as hyper glycemia 5. Anemia of chronic illness hemoglobin is 9.6, was 11.62 days ago 6. Slightly about target blood pressure Recommendation 1. Discontinue hydration 2. Monitor labs tomorrow 3. Avoid any nephrotoxic medications
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
[2021-07-26] MEDS: ATORVASTATIN 40 MG TAB PO SCH (16:32)
[2021-07-26 17:58] LABS: Glucose,Whole Blood 182 mg/dL (75-99)
[2021-07-26] MEDS: ONDANSETRON 4 MG/2 ML VIAL IVP PRN (18:28)
[2021-07-26 20:01] LABS: Glucose,Whole Blood 196 mg/dL (75-99)
[2021-07-26] MEDS: INSULIN DETEMIR (LEVEMIR) 100 UNIT/ML SYR SQ SCH (20:54)
[2021-07-26] MEDS: ENOXAPARIN 40 MG/0.4 ML SYRINGE SQ SCH (20:55)
[2021-07-27] MEDS: AMPICILLIN-SULBACTAM 3 GM in SODIUM CHLORIDE 0.9% 100 ML IVPB SCH ×4 (00:18→17:29)
[2021-07-27] MEDS: SODIUM CHLORIDE 0.9% 1,000 ML IV SCH (00:21)
[2021-07-27 07:02] LABS: Glucose,Whole Blood 116 mg/dL (75-99)
[2021-07-27] MEDS: INSULIN ASPART (NovoLOG) 100 UNIT/ML VIAL SQ SCH ×7 (08:09→21:47)
--- NOTE | 2021-07-27 08:16 | PN ---
PROGRESS NOTE DATE OF SERVICE: 07/26/2021 REASON FOR FOLLOWUP: Left big toe wet gangrene. INTERVAL HISTORY: The patient is afebrile. The patient is currently breathing comfortably. Patient denies any chest pain, shortness of breath or cough. No abdominal pain. Overall pain to the left foot wound is currently controlled. PHYSICAL EXAMINATION: Blood pressure 127/81 with a pulse of 86, temperature is 97.6. He is 95% on room air. General description is a middle-aged male lying in bed in no distress. Respiratory system: Unlabored breathing, clear to auscultation anteriorly. Heart S1, S2. Regular rate and rhythm. Left foot is currently dressed. No obvious drainage on the dressing. LABS: Wound culture with Enterococcus. Creatinine 1.31. DIAGNOSTIC IMPRESSION AND PLAN: Patient with left big toe wet gangrene status post amputation with infected part removed. He will not need to be on long-term antibiotic therapy. Discharge antibiotic on the basis of the final cultures and condition of his wound. Continue supportive care. MMODL / IJN: [id number] /
[2021-07-27] MEDS: METOPROLOL TARTRATE 50 MG TAB PO SCH ×2 (08:19→21:47)
--- NOTE | 2021-07-27 09:39 | P.PN ---
Subjective Patient is seen in follow-up for acute kidney injury. Creatinine 1.31 yesterday. Denies chest pain or shortness of breath. Oral intake fair. No vomiting or diarrhea. Receiving IV fluids. Vital signs are stable. General: The patient appeared well nourished and normally developed. HEENT: Head exam is unremarkable. LUNGS: Breath sounds decreased. HEART: Rate and Rhythm are regular. ABDOMEN: Soft, no distention. EXTREMITITES: No edema. Objective - Vital Signs Vital signs: Vital Signs Temp 98.6 F 07/27/21 05:00 Pulse 85 07/27/21 05:00 Resp 16 07/27/21 05:00 BP 144/80 07/27/21 05:00 Pulse Ox 97 07/27/21 05:00 Intake & Output 07/26/21 07/27/21 07/27/21 18:59 06:59 18:59 Intake Total 360 1570 Output Total 1150 Balance -790 1570 Intake: Intake, IV Titration 650 Amount Ampicillin-Sulbactam 3 gm 200 In Sodium Chloride 0.9% 100 ml @ 200 mls/hr IVPB Q6H [facility] Rx#:[id number] Sodium Chloride 0.9% 1, 450 000 ml @ 75 mls/hr IV . [id number] [facility] Rx#:[id number] Oral 360 920 Output: Urine 1150 Other: Voiding Method Urinal Bedside Commode Urinal # Voids 2 3 # Bowel Movements 1 - Labs CBC & Chem 7: 07/25/21 06:36 07/26/21 07:41 Labs: Abnormal Lab Results - Last 24 Hours (Table) 07/26/21 07/26/21 07/26/21 Range/Units 12:40 17:56 20:00 POC Glucose (mg/dL) 112 H 182 H 196 H (75-99) mg/dL 07/27/21 Range/Units 07:01 POC Glucose (mg/dL) 116 H (75-99) mg/dL Microbiology - Last 24 Hours (Table) 07/23/21 15:33 Blood Culture - Preliminary Blood No Growth after 72 hours 07/23/21 15:08 Blood Culture - Preliminary Blood No Growth after 72 hours 07/24/21 15:07 Gram Stain - Preliminary Toe - Left First Tissue Culture - Preliminary Group D Enterococcus Assessment and Plan Plan: Assessment: 1. Acute kidney injury mostly prerenal secondary to infection. Creatinine peaked at 1.48 this admission and was down to 1.31 yesterday. Baseline creatinine near 1. 2. Left foot big toe infection status post amputation. Culture positive for enterococcus. On antibiotics. 3. Diabetes mellitus. 4. Hyperkalemia secondary to acute kidney injury. Resolved. Plan: Hep-Lock IV fluids. Encourage oral intake. Avoid nephrotoxins. Follow-up morning labs.
[2021-07-27 11:46] LABS: Glucose,Whole Blood 114 mg/dL (75-99)
[2021-07-27] MEDS: COLLAGENASE 250 UNIT/GM OINTMENT 30 GM TUBE TOPICAL SCH (12:43)
--- NOTE | 2021-07-27 14:30 | PN ---
PROGRESS NOTE DATE OF SERVICE: 07/27/2021 REASON FOR FOLLOWUP: Left big toe diabetic foot infection with wet gangrene. INTERVAL HISTORY: The patient is afebrile. The patient is currently breathing comfortably. No chest pain, shortness of breath or cough. No abdominal pain or any worsening pain to the left foot amputation site. PHYSICAL EXAMINATION: Blood pressure 133/77 with a pulse of 81, temperature of 98.4. He is 96% on room air. General description is a middle-aged male lying in bed in no distress. Respiratory system: Unlabored breathing, clear to auscultation anteriorly. Heart S1, S2. Regular rate and rhythm. Abdomen soft, no tenderness. Left foot big toe amputation site did have significant amount of inflammation. DIAGNOSTIC IMPRESSION AND PLAN: Patient with left big toe wet gangrene, status post amputation. Still has significant amount of inflammatory changes. Patient will benefit from continuation of IV antibiotic therapy in the form of Unasyn 3 grams q.8 hours for at least 2 to 4 weeks and close outpatient followup. MMODL / IJN: [id number] /
--- NOTE | 2021-07-27 16:51 | PN ---
PROGRESS NOTE This is a 55-year-old gentleman who came with wet gangrene of the left big toe. Patient went for ray amputation metatarsophalangeal joint. Patient is on IV antibiotic under care of Infectious Disease. Treating with Santyl cream. Base of the wound noted. Continue with Santyl cream. MMODL / IJN: [id number] /
[2021-07-27 16:59] LABS: Glucose,Whole Blood 144 mg/dL (75-99)
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
[2021-07-27] MEDS: ATORVASTATIN 40 MG TAB PO SCH (17:29)
[2021-07-27] MEDS: ALBUTEROL NEBULIZED 2.5 MG/3 ML INHALATION PRN (19:30)
[2021-07-27 20:17] LABS: Glucose,Whole Blood 155 mg/dL (75-99)
[2021-07-27] MEDS: INSULIN DETEMIR (LEVEMIR) 100 UNIT/ML SYR SQ SCH (21:46)
[2021-07-27] MEDS: ENOXAPARIN 40 MG/0.4 ML SYRINGE SQ SCH (21:47)
[2021-07-28] MEDS: AMPICILLIN-SULBACTAM 3 GM in SODIUM CHLORIDE 0.9% 100 ML IVPB SCH ×5 (00:38→22:56)
[2021-07-28 06:00] LABS: Basophils % (A) 1 %; Eosinophils # (A) 0.1 k/uL (0-0.7); Eosinophils % (A) 2 %; HCT 30.4 % (39.0-53.0); HGB 9.9 gm/dL (13.0-17.5); Lymphocytes # (A) 1.4 k/uL (1.0-4.8); Lymphocytes % (A) 20 %; MCH 31.2 pg (25.0-35.0); MCHC 32.5 g/dL (31.0-37.0); Mean Platelet Volume 7.4; Monocytes # (A) 0.4 k/uL (0-1.0); Monocytes % (A) 6 %; Neutrophils % (A) 70 %; Platelet Count 358 k/uL (150-450); RBC 3.16 m/uL (4.30-5.90); RDW 11.5 % (11.5-15.5); WBC 7.1 k/uL (3.8-10.6)
[2021-07-28 06:17] LABS: African American GFR (CKD) 61 (>60 ml/min/1.73 sqM); Anion Gap 6 mmol/L; Blood Urea Nitrogen 41 mg/dL (9-20); Calcium 8.1 mg/dL (8.4-10.2); Carbon Dioxide 24 mmol/L (22-30); Chloride 104 mmol/L (98-107); Glucose 241 mg/dL (74-99); Non-African American GFR(CKD) 53 (>60 ml/min/1.73 sqM); Potassium 5.5 mmol/L (3.5-5.1); Sodium 134 mmol/L (137-145)
[2021-07-28 07:27] LABS: Glucose,Whole Blood 233 mg/dL (75-99)
[2021-07-28] MEDS: METOPROLOL TARTRATE 50 MG TAB PO SCH ×2 (08:04→21:46)
[2021-07-28] MEDS: INSULIN ASPART (NovoLOG) 100 UNIT/ML VIAL SQ SCH ×7 (08:04→21:45)
[2021-07-28] MEDS: ONDANSETRON 4 MG/2 ML VIAL IVP PRN (08:08)
--- NOTE | 2021-07-28 11:18 | P.PN ---
Subjective Patient is seen in follow-up for acute kidney injury. Creatinine stable at 1.47 today. Denies chest pain or shortness of breath. Oral intake fair. No vomiting or diarrhea. Vital signs are stable. General: The patient appeared well nourished and normally developed. HEENT: Head exam is unremarkable. LUNGS: Breath sounds decreased. HEART: Rate and Rhythm are regular. ABDOMEN: Soft, no distention. EXTREMITITES: No edema. Objective - Vital Signs Vital signs: Vital Signs Temp 98 F 07/28/21 04:47 Pulse 82 07/28/21 04:47 Resp 18 07/28/21 04:47 BP 157/74 07/28/21 04:47 Pulse Ox 97 07/28/21 04:47 Intake & Output 07/27/21 07/28/21 07/28/21 18:59 06:59 18:59 Intake Total 200 Output Total 600 Balance 200 -600 Weight 102.058 kg Intake: Intake, IV Titration 200 Amount Ampicillin-Sulbactam 3 gm 200 In Sodium Chloride 0.9% 100 ml @ 200 mls/hr IVPB Q6H [facility] Rx#:[id number] Output: Urine 600 Other: Voiding Method Bedside Commode Urinal # Voids 5 - Labs CBC & Chem 7: 07/28/21 05:12 07/28/21 05:12 Labs: Abnormal Lab Results - Last 24 Hours (Table) 07/27/21 07/27/21 07/27/21 Range/Units 11:45 16:58 20:15 RBC (4.30-5.90) m/uL Hgb (13.0-17.5) gm/dL Hct (39.0-53.0) % Sodium (137-145) mmol/L Potassium (3.5-5.1) mmol/L BUN (9-20) mg/dL Creatinine (0.66-1.25) mg/dL Glucose (74-99) mg/dL POC Glucose (mg/dL) 114 H 144 H 155 H (75-99) mg/dL Calcium (8.4-10.2) mg/dL 07/28/21 07/28/21 07/28/21 Range/Units 05:12 05:12 07:26 RBC 3.16 L (4.30-5.90) m/uL Hgb 9.9 L (13.0-17.5) gm/dL Hct 30.4 L (39.0-53.0) % Sodium 134 L (137-145) mmol/L Potassium 5.5 H (3.5-5.1) mmol/L BUN 41 H (9-20) mg/dL Creatinine 1.47 H (0.66-1.25) mg/dL Glucose 241 H (74-99) mg/dL POC Glucose (mg/dL) 233 H (75-99) mg/dL Calcium 8.1 L (8.4-10.2) mg/dL Microbiology - Last 24 Hours (Table) 07/23/21 15:33 Blood Culture - Preliminary Blood No Growth after 96 hours 07/23/21 15:08 Blood Culture - Preliminary Blood No Growth after 96 hours 07/24/21 15:07 Anaerobic Culture - Preliminary Toe - Left First 07/24/21 15:07 Gram Stain - Preliminary Toe - Left First Tissue Culture - Preliminary Group D Enterococcus Presumptive Staph aureus Assessment and Plan Plan: Assessment: 1. Acute kidney injury mostly prerenal secondary to infection. Creatinine stable at 1.47 today. Baseline creatinine near 1. 2. Left foot big toe infection status post amputation. Culture positive for enterococcus. On antibiotics. 3. Diabetes mellitus. 4. Hyperkalemia secondary to acute kidney injury and hyperglycemia. 5. Benign hypertension. Plan: Off IV fluids. Low potassium diet. Encouraged oral intake. Avoid nephrotoxins. Tight blood sugar control. Repeat potassium level this afternoon. Repeat UA. Add amlodipine 5 mg once daily.
[2021-07-28] MEDS ORDERED: amLODIPine 5 MG TAB PO SCH (11:30)
[2021-07-28 12:14] LABS: Glucose,Whole Blood 91 mg/dL (75-99)
[2021-07-28 15:52] LABS: Appearance,Urine Clear (Clear); Bilirubin,Urine Negative (Negative); Blood,Urine Small (Negative); Color,Urine Yellow; Glucose,Urine (UA) Negative (Negative); Ketones,Urine Negative (Negative); Leukocyte Esterase,Urine Negative (Negative); Nitrite,Urine Negative (Negative); PH, Urine 5.5 (5.0-8.0); Protein,Urine 2+ (Negative); RBC,Urine 6 /hpf (0-5); Specific Gravity,Urine 1.013 (1.001-1.035); Squamous Epithelial Cell,Urine <1 /hpf (0-4); Urobilinogen,Urine <2.0 mg/dL (<2.0); WBC,Urine 2 /hpf (0-5)
[2021-07-28] MEDS ORDERED: INSULIN REGULAR 100 UNIT/ML VIAL (IV) IV ONE (16:09)
[2021-07-28] MEDS ORDERED: DEXTROSE 50% SYRINGE 50 ML IVP STA (16:09)
[2021-07-28] MEDS ORDERED: ALBUTEROL NEBULIZED 2.5 MG/3 ML INHALATION STA (16:11)
[2021-07-28] MEDS ORDERED: SODIUM ZIRCONIUM CYCLOSILICATE 10 GM PACKET PO ONE (16:45)
[2021-07-28 16:47] LABS: Glucose,Whole Blood 149 mg/dL (75-99)
[2021-07-28 17:31] LABS: Glucose,Whole Blood 218 mg/dL (75-99)
[2021-07-28] MEDS: ATORVASTATIN 40 MG TAB PO SCH (17:51)
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
[2021-07-28 21:22] LABS: Glucose,Whole Blood 201 mg/dL (75-99)
[2021-07-28] MEDS: INSULIN DETEMIR (LEVEMIR) 100 UNIT/ML SYR SQ SCH (21:45)
[2021-07-28] MEDS: ENOXAPARIN 40 MG/0.4 ML SYRINGE SQ SCH (21:45)
[2021-07-28] MEDS: amLODIPine 5 MG TAB PO SCH (21:46)
[2021-07-28] MEDS: FAMOTIDINE 20 MG/2 ML VIAL IV SCH (21:46)
--- NOTE | 2021-07-28 23:34 | PN ---
PROGRESS NOTE DATE OF SERVICE: 07/28/2021 REASON FOR FOLLOWUP: Left diabetic foot infection with wet gangrene. INTERVAL HISTORY: The patient is afebrile. The patient is currently breathing comfortably. The patient denies having any chest pain or shortness of breath or cough. No abdominal pain or any worried pain to the left foot area. PHYSICAL EXAMINATION: Blood pressure 183/82 with a pulse of 67, temperature 97.9. He is 96% on room air. General description is a middle-aged male up in the bed in no distress. Respiratory system: Unlabored breathing, clear to auscultation anteriorly. Heart S1, S2. Regular rate and rhythm. Abdomen soft, no tenderness. Left foot is currently dressed. No obvious drainage on the dressing. LABS: Wound culture grew Enterococcus faecalis and Staph aureus. DIAGNOSTIC IMPRESSION AND PLAN: Patient with left diabetic foot infection in this patient who did have left big toe amputation. Patient did have significant amount of inflammation in the wound concerning for oral antibiotic failure. He did get a PICC line. Plan is for Unasyn for at least 2 to 4 weeks, depending on clinical response. Continue with supportive care. MMODL / IJN: [id number] /
[2021-07-29] MEDS: AMPICILLIN-SULBACTAM 3 GM in SODIUM CHLORIDE 0.9% 100 ML IVPB SCH ×2 (05:15→12:32)
[2021-07-29 07:37] LABS: Glucose,Whole Blood 159 mg/dL (75-99)
[2021-07-29] MEDS: INSULIN ASPART (NovoLOG) 100 UNIT/ML VIAL SQ SCH ×4 (08:24→12:32)
[2021-07-29] MEDS: amLODIPine 5 MG TAB PO SCH (08:24)
[2021-07-29] MEDS: METOPROLOL TARTRATE 50 MG TAB PO SCH (08:24)
[2021-07-29] MEDS: FAMOTIDINE 20 MG/2 ML VIAL IV SCH (08:25)
[2021-07-29 10:04] LABS: African American GFR (CKD) 70.7 (60.0-200.0); Anion Gap 9.7 mmol/L (10.00-18.00); BUN/Creat Ratio 24.31 Ratio (12.00-20.00); Blood Urea Nitrogen 31.6 mg/dL (9.0-27.0); Calcium 8.3 mg/dL (8.7-10.3); Carbon Dioxide 23.3 mmol/L (20.0-27.5); Magnesium 2.3 mg/dL (1.5-2.4); Potassium 5.4 mmol/L (3.5-5.5)
--- NOTE | 2021-07-29 10:59 | P.PN ---
Subjective Patient is seen in follow-up for acute kidney injury. Creatinine stable at 1.3 today. Denies chest pain or shortness of breath. Oral intake fair. No vomiting or diarrhea. Vital signs are stable. General: The patient appeared well nourished and normally developed. HEENT: Head exam is unremarkable. LUNGS: Breath sounds decreased. HEART: Rate and Rhythm are regular. ABDOMEN: Soft, no distention. EXTREMITITES: 1+ edema. Objective - Vital Signs Vital signs: Vital Signs Temp 98.6 F 07/29/21 04:17 Pulse 84 07/29/21 04:17 Resp 20 07/29/21 04:17 BP 172/89 07/29/21 04:17 Pulse Ox 95 07/29/21 04:17 Intake & Output 07/28/21 07/29/21 07/29/21 18:59 06:59 18:59 Intake Total 300 Output Total 4 Balance 296 Weight 102.058 kg Intake: Oral 300 Output: Urine 4 Other: Voiding Method Bedside Commode Bedside Commode Bedside Commode Urinal Urinal Urinal # Voids 2 # Bowel Movements 1 1 - Labs CBC & Chem 7: 07/28/21 05:12 07/29/21 06:03 Labs: Abnormal Lab Results - Last 24 Hours (Table) 07/28/21 07/28/21 07/28/21 Range/Units 13:54 14:50 16:38 Potassium 6.0 H (3.5-5.1) mmol/L Anion Gap (10.00-18.00) mmol/L BUN (9.0-27.0) mg/dL BUN/Creatinine Ratio (12.00-20.00) Ratio Glucose (70-110) mg/dL POC Glucose (mg/dL) 149 H (75-99) mg/dL Calcium (8.7-10.3) mg/dL Urine Protein 2+ H (Negative) Urine Blood Small H (Negative) Urine RBC 6 H (0-5) /hpf 07/28/21 07/28/21 07/29/21 Range/Units 17:30 21:19 06:03 Potassium (3.5-5.1) mmol/L Anion Gap 9.70 L (10.00-18.00) mmol/L BUN 31.6 H (9.0-27.0) mg/dL BUN/Creatinine Ratio 24.31 H (12.00-20.00) Ratio Glucose 170 H (70-110) mg/dL POC Glucose (mg/dL) 218 H 201 H (75-99) mg/dL Calcium 8.3 L (8.7-10.3) mg/dL Urine Protein (Negative) Urine Blood (Negative) Urine RBC (0-5) /hpf 07/29/21 Range/Units 07:35 Potassium (3.5-5.1) mmol/L Anion Gap (10.00-18.00) mmol/L BUN (9.0-27.0) mg/dL BUN/Creatinine Ratio (12.00-20.00) Ratio Glucose (70-110) mg/dL POC Glucose (mg/dL) 159 H (75-99) mg/dL Calcium (8.7-10.3) mg/dL Urine Protein (Negative) Urine Blood (Negative) Urine RBC (0-5) /hpf Microbiology - Last 24 Hours (Table) 07/24/21 15:07 Gram Stain - Final Toe - Left First Tissue Culture - Final Enterococcus faecalis Staphylococcus aureus 07/23/21 15:33 Blood Culture - Preliminary Blood No Growth after 120 hours 07/23/21 15:08 Blood Culture - Preliminary Blood No Growth after 120 hours Assessment and Plan Plan: Assessment: 1. Acute kidney injury mostly prerenal secondary to infection. Creatinine stable at 1.3 today. Baseline creatinine near 1. 2. Left foot big toe infection status post amputation. Culture positive for enterococcus. On antibiotics. 3. Diabetes mellitus. 4. Hyperkalemia secondary to acute kidney injury and hyperglycemia. 5. Benign hypertension. Blood pressure in the higher side. 6. Proteinuria. This is likely secondary to underlying diabetic kidney disease. Further workup outpatient. 7. Volume overload. Plan: Off IV fluids. Low potassium diet. Encouraged oral intake. Avoid nephrotoxins. Tight blood sugar control. Add torsemide 20 mg once daily. Amlodipine was added yesterday.
[2021-07-29] MEDS ORDERED: TORSEMIDE 20 MG TAB PO SCH (11:00)
[2021-07-29 12:21] LABS: Glucose,Whole Blood 169 mg/dL (75-99)
[2021-07-29 12:55] VITALS: BP 156/84; PULSE 81; RESP 16; TEMP 98.3
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
--- NOTE | 2021-07-29 15:09 | PN ---
PROGRESS NOTE DATE OF SERVICE: 07/29/2021 REASON FOR FOLLOWUP: Left big toe wet gangrene with underlying osteomyelitis, acute with Enterococcus faecalis and MSSA. INTERVAL HISTORY: The patient is currently afebrile. Patient is breathing comfortably. Denies having any chest pain. No shortness of breath or cough. No nausea. No vomiting. No abdominal pain. No diarrhea. PHYSICAL EXAMINATION: Blood pressure 156/84 with a pulse of 81, temperature 98.8. He is 97% on room air. General description is a middle-aged male up in the bed in no distress. Respiratory system: Unlabored breathing, clear to auscultation anteriorly. Heart S1, S2. Regular rate and rhythm. Abdomen soft, no tenderness. Left foot is currently dressed. No obvious drainage on the dressing. LABS: Creatinine 1.3. DIAGNOSTIC IMPRESSION AND PLAN: Patient with left diabetic foot infection with amputation of left big toe. Local care to continue per surgery. Plan is for Unasyn 3 g q.6 hours for 2-3 weeks depending on clinical response with close outpatient followup. Advised to [facility] up [facility] one week post discharge. MMODL / IJN: [id number] /
[2021-07-29] MEDS ORDERED: INSULIN ASPART (NovoLOG) 100 UNIT/ML VIAL SQ SCH (17:30)
[2021-07-30] MEDS ORDERED: FAMOTIDINE 20 MG TAB PO SCH (09:00)
--- NOTE | 2021-07-31 12:46 | CDI ---
Documentation Clarification Form Date: 07/31/21 From: Dayana Rose Admit Date: 07/23/2021 03:52:00 PM Patient Name: Dustin Sesay Visit Number: [id number] Discharge Date: 07/29/2021 04:39:00 PM ATTENTION: The Clinical Documentation Specialists (CDI) and [facility] Coding Staff appreciate your assistance in clarifying documentation. Please respond to the clarification below the line at the bottom and electronically sign. The CDI & [facility] Coding staff will review the response and follow-up if needed. Please note: Queries are made part of the Legal Health Record. If you have any questions, please contact the author of this message via ITS. Dr. Mosqueda E Leila, Cellulitis is documented in Dr Wood's consult. Additional clarification regarding the type of cellulitis is requested. 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 Treatment: amputation of the left big toe metatarsophalangeal joint. IV Unasyn, IZ Zoysn, IV Vanco Please clarify the type of cellulitis, if known: [ ] Cellulitis due to diabetes [ ] Cutaneous Abscess [ ] Chronic Cellulitis [ ] Other, please specify: [ ] Unable to determine Cellulitis due to diabetes MTDD
--- NOTE | 2021-07-31 12:55 | CDI ---
Documentation Clarification Form Date: 07/31/21 From: Dayana Rose Admit Date: 07/23/2021 03:52:00 PM Patient Name: Dustin Sesay Visit Number: [id number] Discharge Date: 07/29/2021 04:39:00 PM ATTENTION: The Clinical Documentation Specialists (CDI) and [facility] Coding Staff appreciate your assistance in clarifying documentation. Please respond to the clarification below the line at the bottom and electronically sign. The CDI & [facility] Coding staff will review the response and follow-up if needed. Please note: Queries are made part of the Legal Health Record. If you have any questions, please contact the author of this message via ITS. Dr. Mosqueda E Leila, Osteomyelitis is documented in the 07/29 PN. Additional clarification regarding the cause and acuity of the osteomyelitis is requested. 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 Labs: Culture: Moderate Enterococcus faecalis & rare MSSA 07/23 X-Ray Results: Soft tissue wound left great toe with a small amount of soft tissue air noted. Air forming infection difficult to exclude. No definite evidence for osteomyelitis at this time. If there is concern for osteomyelitis consider WBC scan. Treatment: Amputation of the left big toe metatarsophalangeal joint. IV Unasyn, IZ Zoysn, IV Vanco Please clarify the acuity of the osteomyelitis, if known: Acuity: [ ] Acute osteomyelitis [ ] Chronic osteomyelitis [ ] Subacute osteomyelitis [ ] Unable to Determine MTDD
== END 2021-07-29 16:39 | DRG 239 ==
LOC: EC 11:16 → 5NMEDONC 15:52
PROVIDERS: ADMIT Hospitalist; ATTEND Hospitalist
PROC: 0Y6N0ZF Detachment at Left Foot, Partial 5th Ray, Open Approach (ICD-10-PCS; principal; 2021-07-24 08:25)
PROC: 05HF33Z Insertion of Infusion Device into Left Cephalic Vein, Percutaneous Approach (ICD-10-PCS; 2021-07-27 13:20)
DX: E11.52 Type 2 diabetes mellitus with diabetic peripheral angiopathy with gangrene (principal); N17.0 Acute kidney failure with tubular necrosis; M86.172 Other acute osteomyelitis, left ankle and foot; I96 Gangrene, not elsewhere classified; E87.1 Hypo-osmolality and hyponatremia; L03.115 Cellulitis of right lower limb; D63.8 Anemia in other chronic diseases classified elsewhere; E11.29 Type 2 diabetes mellitus with other diabetic kidney complication; B95.2 Enterococcus as the cause of diseases classified elsewhere; E11.69 Type 2 diabetes mellitus with other specified complication; E11.628 Type 2 diabetes mellitus with other skin complications; E11.42 Type 2 diabetes mellitus with diabetic polyneuropathy; B96.5 Pseudomonas (aeruginosa) (mallei) (pseudomallei) as the cause of diseases classified elsewhere; E11.65 Type 2 diabetes mellitus with hyperglycemia; Z79.4 Long term (current) use of insulin; Z20.822 Contact with and (suspected) exposure to COVID-19; E87.5 Hyperkalemia; L30.9 Dermatitis, unspecified; R23.3 Spontaneous ecchymoses; J45.909 Unspecified asthma, uncomplicated; E87.70 Fluid overload, unspecified; K21.9 Gastro-esophageal reflux disease without esophagitis; E78.5 Hyperlipidemia, unspecified; I10 Essential (primary) hypertension; M19.91 Primary osteoarthritis, unspecified site; F90.9 Attention-deficit hyperactivity disorder, unspecified type; F32.A Depression, unspecified; G47.33 Obstructive sleep apnea (adult) (pediatric); Z79.899 Other long term (current) drug therapy; Z87.442 Personal history of urinary calculi; Z86.14 Personal history of Methicillin resistant Staphylococcus aureus infection; Z90.89 Acquired absence of other organs; Z87.01 Personal history of pneumonia (recurrent); Z87.440 Personal history of urinary (tract) infections; Z98.890 Other specified postprocedural states; Z71.3 Dietary counseling and surveillance; Z88.1 Allergy status to other antibiotic agents; Z88.8 Allergy status to other drugs, medicaments and biological substances; Z82.49 Family history of ischemic heart disease and other diseases of the circulatory system; Z83.3 Family history of diabetes mellitus
CPT/HCPCS: 36410; 36415; 71046; 76937; 80048; 80053; 81001; 82565; 83036; 83605; 83735; 84132; 85025; 86140; 87040; 87070; 87075; 87077; 87186; 87205; 87635; 93005; 93970; 94640; 96374; 96375; 99284

== ENCOUNTER 2021-10-13 13:27 | Inpatient (IN) | payer MEDICARE ==
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
[2021-10-13 15:35] LABS: Basophils % (A) 1 %; Eosinophils # (A) 0.1 k/uL (0-0.7); Eosinophils % (A) 1 %; HCT 30.8 % (39.0-53.0); HGB 9.5 gm/dL (13.0-17.5); Hypochromasia Slight; Lymphocytes # (A) 0.9 k/uL (1.0-4.8); Lymphocytes % (A) 15 %; MCH 29.5 pg (25.0-35.0); MCHC 30.7 g/dL (31.0-37.0); MCV 96.1 fL (80.0-100.0); Mean Platelet Volume 8.9; Monocytes # (A) 0.3 k/uL (0-1.0); Monocytes % (A) 5 %; Neutrophils # (A) 4.8 k/uL (1.3-7.7); Neutrophils % (A) 76 %; Platelet Count 282 k/uL (150-450); RBC 3.21 m/uL (4.30-5.90); WBC 6.3 k/uL (3.8-10.6)
[2021-10-13 15:37] LABS: Albumin 3.1 g/dL (3.5-5.0); INR 1.4 (<1.2); Magnesium 1.8 mg/dL (1.6-2.3); Potassium 4.6 mmol/L (3.5-5.1); Prothrombin Time 14.6 sec (9.0-12.0); Total Bilirubin 0.5 mg/dL (0.2-1.3); Total Protein 6.4 g/dL (6.3-8.2)
[2021-10-13 15:38] LABS: Partial Thromboplastin Time 30.4 sec (22.0-30.0)
--- NOTE | 2021-10-13 15:52 | XR ---
EXAMINATION TYPE: XR chest 2V DATE OF EXAM: 10/13/2021 COMPARISON: Chest x-ray 07/23/2021 HISTORY: Weakness, trauma TECHNIQUE: Frontal and lateral views of the chest are obtained. FINDINGS: There is blunting of the costophrenic angles, technique is apical lordotic and rotated. Bi basilar increased attenuation is present. No evident pneumothorax. Central vascularity appears promin ently. Heart may be enlarged but is partially obscured. No evident fracture. IMPRESSION: Correlate for congestive heart failure with bibasilar effusions, follow-up is recommende d. Pneumonia not excluded.
--- NOTE | 2021-10-13 15:53 | XR ---
Right hip HISTORY: Trauma and pain 2 views the right hip Bone mineralization, joint spaces and alignment are maintained. There are dense vascular calcificatio ns present. IMPRESSION: No fracture or dislocation is evident.
--- NOTE | 2021-10-13 15:55 | XR ---
Right shoulder HISTORY: Trauma and pain 3 views the right shoulder Bone mineralization may be slightly reduced. Joint spaces and alignment are maintained. There is a ri ght pleural effusion suspected, pleural thickening is present. Some spurring is present at the glenoh umeral joint. Hypertrophic changes are present at the acromioclavicular joint. IMPRESSION: No acute fracture or dislocation. There is arthropathy change present.
[2021-10-13 16:05] LABS: Calcium 8.6 mg/dL (8.4-10.2)
--- NOTE | 2021-10-13 16:49 | CT ---
EXAMINATION TYPE: CT brain cspine wo con CT DLP: 1416.3 mGycm, Automated exposure control for dose reduction was used. DATE OF EXAM: 10/13/2021 4:39 PM COMPARISON: None.. CLINICAL INDICATION:Male, 56 years old with history of fall; TECHNIQUE: Brain: Multiple axial CT images of the brain were obtained without IV contrast. Cspine: Axial CT images from the skull base to the inferior aspect of T2 we obtained without intraven ous contrast. Coronal and sagittal reformatted images were also reviewed. FINDINGS: Brain: Extra-axial spaces: No abnormal extra-axial fluid collections. Ventricular system: Within normal limits Cerebral parenchyma: No acute intraparenchymal hemorrhage or mass effect. The garg-white junction is well differentiated. Scattered hypoattenuating areas are seen within the white matter. Cerebellum: Unremarkable. Mass effect: No evidence of midline shift. Intracranial vasculature: Atherosclerotic calcifications of the intracranial vessels. Soft tissues: Normal. Calvarium/osseous structures: No depressed skull fracture. Paranasal sinuses and mastoid air cells: Clear. Visualized orbits: Orbital contents are intact. Cervical spine: Fracture: None. Osseous structures: Congenital nonfusion of the posterior arch of C1. Mild multilevel degenerative di sc disease changes are present. Vertebral alignment: Within normal limits. Spinal canal/Neural Foramina: No evidence of significant spinal canal narrowing. No evidence of signi ficant neural foramina narrowing. Neck soft tissues: Prevertebral soft tissues are within normal limits. Other: The airway is patent. The lung apices are clear. IMPRESSION: 1. No acute intracranial process. 2. Nonspecific white matter changes, likely secondary to chronic small vessel ischemic disease. 3. No evidence of cervical spine fracture. 4. Mild multilevel degenerative disc disease.
[2021-10-13 16:52] LABS: Appearance,Urine Clear (Clear); Bilirubin,Urine Negative (Negative); Blood,Urine Negative (Negative); Color,Urine Light Yellow; Glucose,Urine (UA) Negative (Negative); Ketones,Urine Negative (Negative); Leukocyte Esterase,Urine Negative (Negative); Nitrite,Urine Negative (Negative); Protein,Urine Trace (Negative); Specific Gravity,Urine 1.007 (1.001-1.035); Urobilinogen,Urine <2.0 mg/dL (<2.0)
[2021-10-13] MEDS ORDERED: FUROSEMIDE 10 MG/ML 4 ML VIAL IV STA (17:28)
[2021-10-13 17:54] LABS: Glucose,Whole Blood 114 mg/dL (75-99)
[2021-10-13] MEDS: INSULIN ASPART (NovoLOG) 100 UNIT/ML VIAL SQ SCH ×2 (18:02→23:13)
[2021-10-13 23:04] LABS: Glucose,Whole Blood 117 mg/dL (75-99)
[2021-10-13] MEDS: hydrALAZINE HCL 50 MG TAB PO SCH (23:13)
[2021-10-13] MEDS: GABAPENTIN 300 MG CAP PO SCH (23:13)
[2021-10-13] MEDS: ALBUTEROL NEBULIZED 2.5 MG/3 ML INHALATION PRN (23:16)
[2021-10-14] MEDS: INSULIN ASPART (NovoLOG) 100 UNIT/ML VIAL SQ SCH ×4 (08:04→20:40)
[2021-10-14] MEDS: GABAPENTIN 300 MG CAP PO SCH ×3 (08:05→21:07)
[2021-10-14] MEDS: hydrALAZINE HCL 50 MG TAB PO SCH ×2 (08:05→21:07)
[2021-10-14] MEDS: lisinopriL 20 MG TAB PO SCH (08:06)
[2021-10-14] MEDS: ATORVASTATIN 20 MG TAB PO SCH (08:06)
[2021-10-14] MEDS: INSULN ASP PRT/INSULIN ASPART 100 UNIT/ML 10 ML VIAL SQ SCH ×3 (08:06→17:29)
[2021-10-14] MEDS: EZETIMIBE 10 MG TAB PO SCH (08:06)
[2021-10-14] MEDS: NYSTATIN 100,000UNIT/GM CREAM 30 GM TUBE TOPICAL SCH ×2 (08:07→21:08)
[2021-10-14 08:13] LABS: Glucose,Whole Blood 105 mg/dL (75-99)
[2021-10-14] MEDS: FUROSEMIDE 100 MG in SODIUM CHLORIDE 0.9% 90 ML IV SCH ×2 (09:25→21:28)
[2021-10-14] MEDS: RIVAROXABAN 20 MG TAB PO SCH (09:26)
--- NOTE | 2021-10-14 09:40 | US ---
EXAMINATION TYPE: US venous doppler duplex LE BI DATE OF EXAM: 10/14/2021 9:18 AM COMPARISON: NONE CLINICAL HISTORY: DVT. Bilateral edema SIDE PERFORMED: Bilateral TECHNIQUE: The lower extremity deep venous system is examined utilizing real time linear array sonog jessica with graded compression, doppler sonography and color-flow sonography. VESSELS IMAGED: Common Femoral Vein Deep Femoral Vein Greater Saphenous Vein * Femoral Vein Popliteal Vein Small Saphenous Vein * Proximal Calf Veins (* superficial vessels) limited exam due to extensive edema. Limited compression images as patient was unable to tolerate. Right Leg: Negative for DVT as visualized. Left Leg: Negative for DVT as visualized. Incidental note is made of multiple bilateral lymph nodes in groin. IMPRESSION: No evidence for DVT at this time.
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
--- NOTE | 2021-10-14 10:37 | P.CNPUL ---
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 Still following at the wound Center. From here he was discharged to [facility] and then was brought into [facility] for shortness of breath and was transferred to [facility] for DVT/PE. He was initiated on Xarelto. He came here to the emergency room yesterday after sustaining a fall in his bathroom. He was di rected to the emergency room by his PCP as he is maintained on blood thinners. He has had ongoing issues with lower extremity and scrotal edema not improving on Lasix in the outpatient setting. His been the source of his falls. He denied loss of consciousness. He denied hitting his head. He did have some right hip and shoulder pain. Chest x-ray revealed bibasilar effusions consistent with congestive heart failure. Right hip x-ray revealed no fracture. Right shoulder x-ray revealed no fracture. Computed tomography scan of the head revealed no acute intracranial process. No evidence of cervical spine fracture. White count 6.3. Hemoglobin 9.5. Platelets 282. INR 1.4. Sodium 1:30. Potassium 4.6. Creatinine 1.19. Glucose 147. AST 21. ALT 13. ProBNP 559. Troponin negative 1. Urinalysis clean. Dominguez virus by PCR not detected. He had received Lasix 40 mg IVP 1 last night. No accurate I&O measured. His current weight is 129 kg. He is seen today in consultation on the regular medical floor. He is currently sitting up in bed. Awake and alert in no acute distress. He is maintaining O2 saturations in the 90s on room air. He's been afebrile. Hemodynamically stable. He does have excess fluid in the lower abdomen, scrotum and bilateral extremities. Review of Systems REVIEW OF SYSTEMS: CONSTITUTIONAL: Generalized weakness with falls due to excessive lower extremity edema. Positive for weight gain. EYES: Denies change in vision. EARS, NOSE, MOUTH, THROAT: Denies headaches, denies sore throat. CARDIOVASCULAR: Denies chest pain, palpitations or syncopal episodes. RESPIRATORY: Positive for occasional shortness of breath, no cough, congestion or hemoptysis. GASTROINTESTINAL: Denies change in appetite, denies abdominal pain GENITOURINARY: Denies hematuria, denies infections. MUSKULOSKELETAL: Positive lower extremity edema with weakness. INTEGUMENTARY: Denies rash, denies eczema. NEUROLOGICAL: Denies recent memory loss, no recent seizure activity. PSYCHIATRIC: Denies anxiety, denies depression. HEMATOLOGIC/LYMPHATIC: Denies anemia, denies enlarged lymph nodes. Past Medical History Past Medical History: Asthma, Diabetes Mellitus, GERD/Reflux, Hyperlipidemia, Hypertension, Osteoarthritis (OA), Pneumonia, Pulmonary Embolus (PE), Sleep Apnea/CPAP/BIPAP Additional Past Medical History / Comment(s): neuropathy, sleep apnea in past with use of cpap but since lost over 100 pounds does;nt need machine any more,kidney stones, uti,PAST STAPH INFECTION RT EYE STATED NOT MRSA. [facility] [address] [facility] had skin damage to both feet, most cleared up with excpetion of rt great toe. RECENTLY AT [facility] FOR PE "ABOUT 3 WEEKS AGO" History of Any Multi-Drug Resistant Organisms: MRSA Date of last positivie culture/infection: 2013 MDRO Source:: RT toe Past Surgical History: Adenoidectomy, Tonsillectomy Additional Past Surgical History / Comment(s): I&D of right toe. Left great toe amputated Past Anesthesia/Blood Transfusion Reactions: No Reported Reaction Past Psychological History: ADD/ADHD, Depression Additional Psychological History / Comment(s): takes zoloft BUT RAN OUT A FEW MONTHS AGO (D/T [employer]) STATES THAT HAS SOME PROBLEMS WITH DEPRESSION D/T MEDICAL ISSUES,CAN'T DO WHAT HE USED TO BE ABLE TO DO. PT CURRENTLY DENIES SUICIDALTHOUGHTS,BUT THAT IN PAST HAS HAD THOUGHTS OF SUCH BUT WOULD'NT ACT ON THEM. Smoking Status: Never smoker Past Alcohol Use History: Occasional Past Drug Use History: None Reported - Past Family History Father Family Medical History: Coronary Artery Disease (CAD) Mother Family Medical History: Coronary Artery Disease (CAD), Diabetes Mellitus Medications and Allergies Home Medications Medication Instructions Recorded Confirmed Type Albuterol Sulfate [Ventolin HFA] 2 puff INHALATION RT-Q6H PRN 10/16/14 10/13/21 History Ezetimibe/Simvastatin [Vytorin 1 tab PO DAILY 10/13/21 10/13/21 History 10-40 mg Tablet] Furosemide [Lasix] 40 mg PO BID 10/13/21 10/13/21 History Gabapentin [Neurontin] 300 mg PO TID 10/13/21 10/13/21 History Insulin NPH Hum/Reg Insulin Hm 40 unit SQ AC-TID 10/13/21 10/13/21 History [NovoLIN 70-30 100 UNIT/ML VIAL] Nystatin 100,000Unit/gm Cream 1 applic TOPICAL BID 10/13/21 10/13/21 History [Mycostatin Cream] Rivaroxaban [Xarelto] 20 mg PO W/BRKFST 10/13/21 10/13/21 History hydrALAZINE HCL [Apresoline] 100 mg PO BID 10/13/21 10/13/21 History lisinopriL 40 mg PO DAILY 10/13/21 10/13/21 History Allergies Allergy/AdvReac Type Severity Reaction Status Date / Time cephalexin [From Keflex] Allergy Rash/Hives Verified 10/13/21 18:02 phenobarbital AdvReac Unknown Verified 10/13/21 18:02 Childhood Physical Exam Vitals: Vital Signs Temp Pulse Pulse Resp BP BP Pulse Ox 10/14/21 08:00 98.5 F 86 18 147/68 97 10/14/21 02:39 98.6 F 87 16 128/73 93 L 10/13/21 23:26 80 10/13/21 23:17 88 10/13/21 22:45 16 10/13/21 22:30 98.4 F 91 16 179/78 95 10/13/21 18:02 90 20 146/78 94 L 10/13/21 13:36 97.8 F 92 16 141/75 95 Intake and Output 10/13/21 10/14/21 10/14/21 22:59 06:59 14:59 Intake Total 240 Balance 240 Intake: Oral 240 Other: Voiding Method Urinal # Voids 1 0 Weight 129.274 kg GENERAL EXAM: Alert, pleasant 56-year-old male patient, obese, on room air oxyg en, comfortable in no apparent distress. HEAD: Normocephalic. EYES: Normal reaction of pupils, equal size. NOSE: Clear with pink turbinates. THROAT: No erythema or exudates. NECK: No masses, no JVD. CHEST: No chest wall deformity. LUNGS: Equal air entry with crackles in the bilateral bases. CVS: S1 and S2 normal with no audible murmur, regular rhythm. ABDOMEN: Excess fluid of the lower abdomen, scrotum. No hepatosplenomegaly, normal bowel sounds, no guarding or rigidity. SPINE: No scoliosis or deformity SKIN: No rashes CENTRAL NERVOUS SYSTEM: No focal deficits, tone is normal in all 4 extremities. EXTREMITIES: Dressing to the light left foot is with previous left great toe amputation. 2-3+ lower extremity edema. No clubbing, no cyanosis. Peripheral pulses are intact. Results - Laboratory Findings CBC and BMP: 10/13/21 15:24 10/13/21 15:24 PT/INR, D-dimer PT 14.6 sec (9.0-12.0) H 10/13/21 15:24 INR 1.4 (<1.2) H 10/13/21 15:24 Abnormal lab findings: Abnormal Labs 10/13/21 10/13/21 10/13/21 15:24 15:24 15:24 RBC 3.21 L Hgb 9.5 L Hct 30.8 L MCHC 30.7 L Lymphocytes # 0.9 L PT 14.6 H INR 1.4 H APTT 30.4 H BUN 45 H Glucose 147 H POC Glucose (mg/dL) Alkaline Phosphatase 142 H Albumin 3.1 L Urine Protein 10/13/21 10/13/21 10/13/21 16:28 17:52 23:03 RBC Hgb Hct MCHC Lymphocytes # PT INR APTT BUN Glucose POC Glucose (mg/dL) 114 H 117 H Alkaline Phosphatase Albumin Urine Protein Trace H 10/14/21 07:45 RBC Hgb Hct MCHC Lymphocytes # PT INR APTT BUN Glucose POC Glucose (mg/dL) 105 H Alkaline Phosphatase Albumin Urine Protein Assessment and Plan Assessment: 1 Falls secondary to lower extremity weakness secondary to excess edema. Dopplers of lower extremities today revealed no evidence of DVT 2 Lower extremity edema including the scrotum and lower abdomen secondary to fluid volume overload, echocardiogram pending 3 Recent history of PE, anticoagulated with Xarelto 4 Wet gangrene of the left great toe, status post amputation in July 2021, still following in the wound Center 5 Diabetes mellitus 6 Diabetic neuropathy 7 Morbid obesity 8 Obstructive sleep apnea, not currently on CPAP 9 Hypertension 10 Hyperlipidemia 12 Chronic bronchial asthma. Plan: The patient was seen and evaluated Chest x-ray and labs reviewed We'll initiate a Lasix drip at 10 mg per hour Accurate I&O measurements Echocardiogram pending Doppler of the lower extremities negative for DVT Resume patient's Xarelto Follow-up chest x-ray in a.m. We will continue to follow and make further recommendations based on his clinical status I, the cosigning physician, performed a history & physical examination of the patient. Lungs sounds with crackles in the bilateral bases. Maintaining good O2 saturations in the 90s on room air. I discussed the assessment and plan of care with my nurse practitioner, Georgiana Kim. I attest to the above consultation as dictated by her. Time with Patient: Greater than 30
[2021-10-14 11:57] LABS: Glucose,Whole Blood 199 mg/dL (75-99)
[2021-10-14] MEDS: ALBUTEROL NEBULIZED 2.5 MG/3 ML INHALATION PRN (11:59)
--- NOTE | 2021-10-14 15:00 | ECHOF ---
Referral Reason:chf MEASUREMENTS -------- HEIGHT: 172.7 cm WEIGHT: 129.3 kg BP: 128/73 RVIDd: 3.3 cm (< 3.3) IVSd: 1.1 cm (0.6 - 1.1) LVIDd: 4.2 cm (3.9 - 5.3) LVPWd: 1.3 cm (0.6 - 1.1) IVSs: 1.8 cm LVIDs: 1.8 cm LVPWs: 1.9 cm LAESV Index (A-L): 38.46 ml/m Ao Diam: 2.6 cm (2.0 - 3.7) AV Cusp: 1.9 cm (1.5 - 2.6) LA Diam: 4.0 cm (2.7 - 3.8) MV EXCURSION: 15.279 mm (> 18.000) MV EF SLOPE: 95 mm/s (70 - 150) EPSS: 0.3 cm MV E Yonatan: 1.20 m/s MV DecT: 130 ms MV A Yonatan: 1.00 m/s MV E/A Ratio: 1.20 RAP: 5.00 mmHg RVSP: 32.92 mmHg FINDINGS -------- Sinus rhythm. This was a technically difficult study with suboptimal apical views. The left ventricular size is normal. There is mild concentric left ventricular hypertrophy. Overa ll left ventricular systolic function is normal with, an EF between 55 - 60 %. The right ventricle is mildly enlarged. LA is midly dilated 29-33ml/m2. The right atrial size is normal. 5.0mg of Lumason was utilized for enhancement of images Interatrial and interventricular septum intact. There is mild aortic valve sclerosis. There is no evidence of aortic regurgitation. There is no e vidence of aortic stenosis. Mild mitral regurgitation is present. Mild tricuspid regurgitation present. There is no evidence of pulmonary hypertension. The right v entricular systolic pressure, as measured by Doppler, is 32.92mmHg. There is no pulmonic regurgitation present. The aortic root size is normal. IVC Not well visulized. There is a trivial pericardial effusion present. CONCLUSIONS -------- 1. The left ventricular size is normal. 2. There is mild concentric left ventricular hypertrophy. 3. Overall left ventricular systolic function is normal with, an EF between 55 - 60 %. 4. The right ventricle is mildly enlarged. 5. LA is midly dilated 29-33ml/m2. 6. There is mild aortic valve sclerosis. 7. Mild mitral regurgitation is present. 8. Mild tricuspid regurgitation present. CONSOLE ATTENDANT: Daniela Wilburn RDCS
[2021-10-14 16:31] LABS: Glucose,Whole Blood 188 mg/dL (75-99)
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
[2021-10-14 20:49] LABS: Glucose,Whole Blood 69 mg/dL (75-99)
[2021-10-14 20:59] LABS: Glucose,Whole Blood 59 mg/dL (75-99)
[2021-10-14 21:17] LABS: Glucose,Whole Blood 68 mg/dL (75-99)
[2021-10-14 21:41] LABS: Glucose,Whole Blood 99 mg/dL (75-99)
[2021-10-15 01:51] LABS: Glucose,Whole Blood 80 mg/dL (75-99)
[2021-10-15] MEDS: FUROSEMIDE 100 MG in SODIUM CHLORIDE 0.9% 90 ML IV SCH (05:19)
[2021-10-15 06:47] LABS: Glucose,Whole Blood 59 mg/dL (75-99)
[2021-10-15] MEDS: INSULIN ASPART (NovoLOG) 100 UNIT/ML VIAL SQ SCH ×4 (07:01→21:07)
[2021-10-15 07:07] LABS: Glucose,Whole Blood 68 mg/dL (75-99)
[2021-10-15 07:23] LABS: Glucose,Whole Blood 81 mg/dL (75-99)
[2021-10-15] MEDS: hydrALAZINE HCL 50 MG TAB PO SCH ×2 (08:26→21:07)
[2021-10-15] MEDS: ATORVASTATIN 20 MG TAB PO SCH (08:27)
[2021-10-15] MEDS: EZETIMIBE 10 MG TAB PO SCH (08:27)
[2021-10-15] MEDS: lisinopriL 20 MG TAB PO SCH (08:27)
[2021-10-15] MEDS: GABAPENTIN 300 MG CAP PO SCH ×3 (08:27→21:07)
[2021-10-15] MEDS: RIVAROXABAN 20 MG TAB PO SCH (08:27)
[2021-10-15] MEDS: INSULN ASP PRT/INSULIN ASPART 100 UNIT/ML 10 ML VIAL SQ SCH ×3 (08:29→16:51)
[2021-10-15] MEDS: NYSTATIN 100,000UNIT/GM CREAM 30 GM TUBE TOPICAL SCH ×2 (10:18→21:09)
--- NOTE | 2021-10-15 10:21 | P.PN ---
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 Still following at the wound C enter. From here he was discharged to [facility] and then was brought into [facility] for shortness of breath and was transferred to [facility] for DVT/PE. He was initiated on Xarelto. He came here to the emergency room yesterday after sustaining a fall in his bathroom. He was directed to the emergency room by his PCP as he is maintained on blood thinners. He has had ongoing issues with lower extremity and scrotal edema not improving on Lasix in the outpatient setting. His been the source of his falls. He denied loss of consciousness. He denied hitting his head. He did have some right hip and shoulder pain. Chest x-ray revealed bibasilar effusions consi stent with congestive heart failure. Right hip x-ray revealed no fracture. Right shoulder x-ray revealed no fracture. Computed tomography scan of the head revealed no acute intracranial process. No evidence of cervical spine fracture. White count 6.3. Hemoglobin 9.5. Platelets 282. INR 1.4. Sodium 1:30. Potassium 4.6. Creatinine 1.19. Glucose 147. AST 21. ALT 13. ProBNP 559. Troponin negative 1. Urinalysis clean. Dominguez virus by PCR not detected. He had received Lasix 40 mg IVP 1 last night. No accurate I&O measured. His current weight is 129 kg. He is seen today in consultation on the regular medical floor. He is currently sitting up in bed. Awake and alert in no acute distress. He is maintaining O2 saturations in the 90s on room air. He's been afebrile. Hemodynamically stable. He does have excess fluid in the lower abdomen, scrotum and bilateral extremities. On 10/15/2021 patient seen in follow-up on medical surgical floor, he is currently on 2 L of oxygen his pulse ox is 98%, he remains on Lasix infusion at 10 mg per hour. She is very modestly in negative Fluid balance of 626 mL over last 24 hours. No worsening dyspnea, patient is pretty much bedbound, it very difficult for him to ambulate all get up out of bed related to his significant lower extremity and significant scrotal edema. Sounds reveal very diminished breath sounds at bilateral bases, we'll obtain follow-up chest x-ray today and follow-up labs including CBC and BMP. Otherwise appears to be in no acute distress. No complaints of chest discomfort, no cough or phlegm production. Objective - Vital Signs Vital signs: Vital Signs Temp 97.8 F 10/15/21 07:55 Pulse 92 10/15/21 07:55 Resp 18 10/15/21 07:55 BP 152/70 10/15/21 07:55 Pulse Ox 98 10/15/21 07:55 Intake & Output 10/14/21 10/15/21 10/15/21 18:59 06:59 18:59 Intake Total 1080 418.5 Output Total 475 1650 700 Balance 605 -1231.5 -700 Weight 130.8 kg 129.8 kg Intake: Intake, IV Titration 178.5 Amount Furosemide 100 mg In 178.5 Sodium Chloride 0.9% 90 ml @ 10 MG/HR 10 mls/hr IV .Q10H [facility] Rx#: [id number] Oral 1080 240 Output: Urine 475 1650 700 Other: Voiding Method Urinal # Voids 0 - Exam GENERAL EXAM: Alert, pleasant, 56-year-old white male, on 2 L of oxygen with a pulse ox of 98%, comfortable in no apparent distress. HEAD: Normocephalic/atraumatic. EYES: Normal reaction of pupils, equal size. Conjunctiva pink, sclera white. NOSE: Clear with pink turbinates. THROAT: No erythema or exudates. NECK: No masses, no JVD, no thyroid enlargement, no adenopathy. CHEST: No chest wall deformity. Symmetrical expansion. LUNGS: Equal air entry with no crackles, wheeze, rhonchi or dullness. No stress sounds at the bases CVS: Regular rate and rhythm, normal S1 and S2, no gallops, no murmurs, no rubs ABDOMEN: Soft, nontender. No hepatosplenomegaly, normal bowel sounds, no guarding or rigidity. EXTREMITIES: No clubbing, truncal edema, bilateral lower extremity edema, and significant scrotal edema no cyanosis, 2+ pulses and upper and lower extremities. MUSCULOSKELETAL: Muscle strength and tone normal. SPINE: No scoliosis or deformity SKIN: No rashes CENTRAL NERVOUS SYSTEM: Alert and oriented -3. No focal deficits, tone is normal in all 4 extremities. PSYCHIATRIC: Alert and oriented -3. Appropriate affect. Intact judgment and insight. - Labs CBC & Chem 7: 10/13/21 15:24 10/13/21 15:24 Labs: Abnormal Lab Results - Last 24 Hours (Table) 10/13/21 10/14/21 10/14/21 Range/Units 15:24 11:48 16:28 POC Glucose (mg/dL) 199 H 188 H (75-99) mg/dL Procalcitonin 0.10 H (0.02-0.09) ng/mL 10/14/21 10/14/21 10/14/21 Range/Units 20:39 20:57 21:06 POC Glucose (mg/dL) 69 L 59 L 68 L (75-99) mg/dL Procalcitonin (0.02-0.09) ng/mL 10/15/21 10/15/21 Range/Units 06:45 07:06 POC Glucose (mg/dL) 59 L 68 L (75-99) mg/dL Procalcitonin (0.02-0.09) ng/mL Assessment and Plan Plan: Assessment: #1. Acute Hypoxic respiratory failure related to acute exacerbation of CHF with diastolic dysfunction #2. Generalized weakness and falls at home #3. Bilateral pleural effusions related to diastolic CHF with acute exacerbation #4. History of diastolic CHF #5. Recent diagnosis of pulmonary embolism on Zaroxolyn #6. Hypertension #7. Diabetes mellitus type 2 with diabetic neuropathy #8. Recent left great toe amputation related to with gangrene of the left great toe, in July 2021, follows at the wound care center #9. Obstructive sleep apnea not on CPAP #10. Morbid obesity, with BMI of 43.5 kg/m #11. Depression #12. Chronic bronchial asthma, unspecified Plan: Continue Lasix infusion Obtain follow-up blood work including electrolytes and renal profile, CBC We'll obtain follow-up chest x-ray today Intake and output Daily weights Continue oral anticoagulation Echocardiogram has been noted Clinically still has significant amount of swelling in lower extremities, scrotum, and truncal area No worsening dyspnea We'll continue to follow his clinical course I performed a history & physical examination of the patient and discussed their management with my nurse practitioner, Bita Jolly. I reviewed the nurse practitioner's note and agree with the documented findings and plan of care. Lung sounds are positive for dim breath sounds throughout the lung jimenez. The findings and the impression was discussed with the patient. I attest to the documentation by the nurse practitioner. Time with Patient: Less than 30
--- NOTE | 2021-10-15 10:28 | P.PN ---
Subjective Progress Note Date: 10/15/21 HISTORY OF PRESENT ILLNESS: This is a 56-year-old male with a past medical history significant for recent left toe amputation, hypertension, hyperlipidemia, congestive heart failure, diabetes, and pulmonary embolism on Xarelto. Patient follows with Dr. Vee in [facility] We have been asked to see the patient in consultation for congestive heart failure. Patient examined at the bedside. Patient presented to the hospital to chief complaint of weakness. Patient also reports having shortness of breath and increased lower extremity edema. The patient currently reports he is short of breath. He denies fever or chills. He denies chest pain or pressure. He denies dizziness or lightheadedness. Patient was evaluated by pulmonary medicine this morning and was started on an IV Lasix infusion. Patient reports having an echocardiogram recently and believes his ejection frac tion was normal. 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 EKG reveals sinus mechanism with no signs of acute ischemia Chest xray correlate for congestive heart failure with bibasilar effusions. Venous Doppler: Negative for DVT bilaterally Laboratory data: WBC 6.3. Hemoglobin 9.5. Platelet count 282. Sodium 138. Potassium 4.6. BUN 45. Creatinine 1.19. Troponin negative 1. ProBNP 559. Current home cardiac medications include Lasix 40 mg twice a day, lisinopril 40 mg daily, Xarelto 20 mg daily, and hydralazine 100 mg twice a day 10/15/2021 Patient examined this morning at the bedside. Patient denies chest pain or pressure. He does report improvement in his shortness of breath. He remains on IV Lasix infusion. Fluid balance over the last 24 hours is -626 mL. Echocardiogram completed revealing ejection fraction 55-60%, mild mitral regurgitation, and mild tricuspid regurgitation PHYSICAL EXAM: VITAL SIGNS: Reviewed. GENERAL: Well-developed in no acute distress. HEENT: Head is normocephalic. Pupils are equal, round. Sclerae anicteric. Mucous membranes of the mouth are moist. Neck supple. No JVD or thyromegaly LUNGS: Respirations even and unlabored. Lungs diminished bilaterally, with nearly no breath sounds auscultated at the bases. HEART: Regular rate and rhythm. S1 and S2 heard. Systolic murmur noted. ABDOMEN: Soft. Nondistended. Nontender. EXTREMITIES: Normal range of motion. No clubbing or cyanosis. Peripheral pulses intact. Bilateral lower extremity edema noted with jesus wraps to bilateral legs. NEUROLOGIC: Awake and alert. Oriented x 3. ASSESSMENT: Generalized weakness Shortness of breath Bilateral pleural effusions per XR Acute on chronic congestive heart failure, with preserved LV function Recent diagnosis of pulmonary embolism, on Xarelto Hypertension Hyperlipidemia Diabetes Recent left great toe amputation PLAN: Continue IV Lasix infusion Daily weights Accurate I&O Monitor kidney function Continue anticoagulation with Xarelto Continue additional home cardiac medications Further recommendations pending patient's course Nurse practitioner note has been reviewed by physician. Signing provider agrees with the documented findings, assessment, and plan of care. Objective - Vital Signs Vital signs: Vital Signs Temp 97.8 F 10/15/21 07:55 Pulse 92 10/15/21 07:55 Resp 18 10/15/21 07:55 BP 152/70 10/15/21 07:55 Pulse Ox 98 10/15/21 07:55 Intake & Output 10/14/21 10/15/21 10/15/21 18:59 06:59 18:59 Intake Total 1080 418.5 Output Total 475 1650 700 Balance 605 -1231.5 -700 Weight 130.8 kg 129.8 kg Intake: Intake, IV Titration 178.5 Amount Furosemide 100 mg In 178.5 Sodium Chloride 0.9% 90 ml @ 10 MG/HR 10 mls/hr IV .Q10H [facility] Rx#: [id number] Oral 1080 240 Output: Urine 475 1650 700 Other: Voiding Method Urinal # Voids 0 - Labs CBC & Chem 7: 10/13/21 15:24 10/13/21 15:24 Labs: Abnormal Lab Results - Last 24 Hours (Table) 10/13/21 10/14/21 10/14/21 Range/Units 15:24 11:48 16:28 POC Glucose (mg/dL) 199 H 188 H (75-99) mg/dL Procalcitonin 0.10 H (0.02-0.09) ng/mL 10/14/21 10/14/21 10/14/21 Range/Units 20:39 20:57 21:06 POC Glucose (mg/dL) 69 L 59 L 68 L (75-99) mg/dL Procalcitonin (0.02-0.09) ng/mL 10/15/21 10/15/21 Range/Units 06:45 07:06 POC Glucose (mg/dL) 59 L 68 L (75-99) mg/dL Procalcitonin (0.02-0.09) ng/mL
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
[2021-10-15 11:33] LABS: Basophils % (A) 1 %; Eosinophils # (A) 0.2 k/uL (0-0.7); Eosinophils % (A) 3 %; HCT 29.2 % (39.0-53.0); HGB 9.2 gm/dL (13.0-17.5); Hypochromasia Moderate; Lymphocytes # (A) 1.1 k/uL (1.0-4.8); Lymphocytes % (A) 21 %; MCH 30.6 pg (25.0-35.0); MCHC 31.4 g/dL (31.0-37.0); MCV 97.2 fL (80.0-100.0); Mean Platelet Volume 7.9; Monocytes # (A) 0.4 k/uL (0-1.0); Monocytes % (A) 8 %; Neutrophils # (A) 3.4 k/uL (1.3-7.7); Neutrophils % (A) 65 %; Platelet Count 283 k/uL (150-450); RBC 3.01 m/uL (4.30-5.90); RDW 13.9 % (11.5-15.5); WBC 5.1 k/uL (3.8-10.6)
--- NOTE | 2021-10-15 11:45 | XR ---
EXAMINATION TYPE: XR chest 1V portable DATE OF EXAM: 10/15/2021 Comparison: 10/13/2021 Clinical History: 56-year-old male CHF, shortness of breath Findings: Heart upper limits of normal in size. Mild interstitial prominence similar to slightly improved. Escobar didier, continued small to moderate effusions with bibasilar opacities. Impression: 1. Pulmonary vascular congestion which shows some improvement from 10/13/2021. 2. Similar small to moderate pleural effusions with adjacent atelectasis and/or consolidation.
[2021-10-15 12:01] LABS: African American GFR (CKD) 81 (>60 ml/min/1.73 sqM); Anion Gap 2 mmol/L; Blood Urea Nitrogen 44 mg/dL (9-20); Calcium 8.5 mg/dL (8.4-10.2); Carbon Dioxide 32 mmol/L (22-30); Chloride 102 mmol/L (98-107); Glucose 134 mg/dL (74-99); Non-African American GFR(CKD) 70 (>60 ml/min/1.73 sqM); Sodium 136 mmol/L (137-145)
[2021-10-15 12:04] LABS: Glucose,Whole Blood 153 mg/dL (75-99)
[2021-10-15] MEDS: BUMETANIDE 10 MG in DEXTROSE 5% IN WATER 60 ML IV SCH ×2 (13:54)
[2021-10-15 16:38] LABS: Glucose,Whole Blood 181 mg/dL (75-99)
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
[2021-10-15 20:53] LABS: Glucose,Whole Blood 254 mg/dL (75-99)
[2021-10-15] MEDS: ALBUTEROL NEBULIZED 2.5 MG/3 ML INHALATION PRN (21:14)
[2021-10-16 07:10] LABS: African American GFR (CKD) 71 (>60 ml/min/1.73 sqM); Anion Gap 3 mmol/L; Blood Urea Nitrogen 50 mg/dL (9-20); Calcium 8.9 mg/dL (8.4-10.2); Carbon Dioxide 35 mmol/L (22-30); Chloride 100 mmol/L (98-107); Glucose 210 mg/dL (74-99); Non-African American GFR(CKD) 61 (>60 ml/min/1.73 sqM); Potassium 5.7 mmol/L (3.5-5.1); Sodium 138 mmol/L (137-145)
[2021-10-16 07:25] LABS: Glucose,Whole Blood 222 mg/dL (75-99)
[2021-10-16] MEDS: lisinopriL 20 MG TAB PO SCH (08:18)
[2021-10-16] MEDS: hydrALAZINE HCL 50 MG TAB PO SCH ×2 (08:18→22:03)
[2021-10-16] MEDS: RIVAROXABAN 20 MG TAB PO SCH (08:18)
[2021-10-16] MEDS: INSULIN ASPART (NovoLOG) 100 UNIT/ML VIAL SQ SCH ×4 (08:18→20:32)
[2021-10-16] MEDS: INSULN ASP PRT/INSULIN ASPART 100 UNIT/ML 10 ML VIAL SQ SCH ×4 (08:18→17:06)
[2021-10-16] MEDS: ATORVASTATIN 20 MG TAB PO SCH (08:19)
[2021-10-16] MEDS: EZETIMIBE 10 MG TAB PO SCH (08:19)
[2021-10-16] MEDS: GABAPENTIN 300 MG CAP PO SCH ×2 (08:20→22:03)
[2021-10-16] MEDS: BUMETANIDE 10 MG in DEXTROSE 5% IN WATER 60 ML IV SCH ×2 (09:17)
[2021-10-16 09:26] LABS: Basophils # (A) 0.05 X 10*3/uL (0.00-0.10); Basophils % (A) 0.8 %; Eosinophils # (A) 0.22 X 10*3/uL (0.04-0.35); Eosinophils % (A) 3.4 %; HCT 29.7 % (39.6-50.0); HGB 8.9 g/dL (13.0-17.0); Immature Grans, Automated 0.2 %; Lymphocytes # (A) 1.19 X 10*3/uL (0.90-5.00); Lymphocytes % (A) 18.2 %; MCV 96.7 fL (80.0-97.0); Mean Platelet Volume 10.3 fL (9.5-12.2); Monocytes # (A) 0.73 X 10*3/uL (0.20-1.00); Monocytes % (A) 11.2 %; NRBC Per 100 WBC 0 /100 WBCS (0.0-0.0); Neutrophils # (A) 4.34 X 10*3/uL (1.80-7.70); Neutrophils % (A) 66.2 %; Platelet Count 285 X 10*3/uL (140-440); RBC 3.07 X 10*6/uL (4.40-5.60); RDW 13.7 % (11.5-14.5); WBC 6.54 X 10*3/uL (4.50-10.00)
[2021-10-16] MEDS: NYSTATIN 100,000UNIT/GM CREAM 30 GM TUBE TOPICAL SCH ×2 (09:30→22:03)
[2021-10-16 11:43] LABS: Glucose,Whole Blood 156 mg/dL (75-99)
[2021-10-16] MEDS ORDERED: SODIUM POLYSTYRENE SULFONATE 15 GM/60 ML BOTTLE PO STA (12:17)
--- NOTE | 2021-10-16 12:17 | P.PN ---
Subjective Progress Note Date: 10/16/21 HISTORY OF PRESENT ILLNESS: This is a 56-year-old male with a past medical history significant for recent left toe amputation, hypertension, hyperlipidemia, congestive heart failure, diabetes, and pulmonary embolism on Xarelto. Patient follows with Dr. Vee in [facility].. We have been asked to see the patient in consultation for congestive heart failure. Patient examined at the bedside. Patient presented to the hospital to chief complaint of weakness. Patient also reports having shortness of breath and increased lower extremity edema. The patient currently reports he is short of breath. He denies fever or chills. He denies chest pain or pressure. He denies dizziness or lightheadedness. Patient was evaluated by pulmonary medicine this morning and was started on an IV Lasix infusion. Patient reports having an echocardiogram recently and believes his ejection frac tion was normal. 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 EKG reveals sinus mechanism with no signs of acute ischemia Chest xray correlate for congestive heart failure with bibasilar effusions. Venous Doppler: Negative for DVT bilaterally Laboratory data: WBC 6.3. Hemoglobin 9.5. Platelet count 282. Sodium 138. Potassium 4.6. BUN 45. Creatinine 1.19. Troponin negative 1. ProBNP 559. Current home cardiac medications include Lasix 40 mg twice a day, lisinopril 40 mg daily, Xarelto 20 mg daily, and hydralazine 100 mg twice a day 10/15/2021 Patient examined this morning at the bedside. Patient denies chest pain or pressure. He does report improvement in his shortness of breath. He remains on IV Lasix infusion. Fluid balance over the last 24 hours is -626 mL. Echocardiogram completed revealing ejection fraction 55-60%, mild mitral regurgitation, and mild tricuspid regurgitation 10/16/2021 Patient examined this morning. He is sitting up in the chair. Denies chest pain or pressure. He states his SOB is improving. He was changed to Bumex infusion yesterday per internal medicine. FLuid balance over the last 24 hours is 5900cc. Creatinine 1.29 today. Potassium 5.7. PHYSICAL EXAM: VITAL SIGNS: Reviewed. GENERAL: Well-developed in no acute distress. HEENT: Head is normocephalic. Pupils are equal, round. Sclerae anicteric. Mucous membranes of the mouth are moist. Neck supple. No JVD or thyromegaly LUNGS: Respirations even and unlabored. Lungs diminished bilaterally, slightly i ncreased aeration in the bases HEART: Regular rate and rhythm. S1 and S2 heard. Systolic murmur noted. ABDOMEN: Soft. Nondistended. Nontender. EXTREMITIES: Normal range of motion. No clubbing or cyanosis. Peripheral pulses intact. Bilateral lower extremity edema noted, remains significant with weeping. NEUROLOGIC: Awake and alert. Oriented x 3. ASSESSMENT: Generalized weakness Shortness of breath Bilateral pleural effusions per XR Acute on chronic congestive heart failure, with preserved LV function Recent diagnosis of pulmonary embolism, on Xarelto Hypertension Hyperlipidemia Diabetes Recent left great toe amputation Hyperkalemia PLAN: Continue IV Bumex infusion Daily weights Accurate I&O Monitor kidney function Continue anticoagulation with Xarelto Continue additional home cardiac medications Defer hyperkalemia treatment to internal medicine Further recommendations pending patient's course Nurse practitioner note has been reviewed by physician. Signing provider agrees with the documented findings, assessment, and plan of care. Objective - Vital Signs Vital signs: Vital Signs Temp 98.4 F 10/16/21 08:00 Pulse 96 10/16/21 08:00 Resp 18 10/16/21 08:00 BP 153/72 10/16/21 08:00 Pulse Ox 92 L 10/16/21 08:00 Intake & Output 10/15/21 10/16/21 10/16/21 18:59 06:59 18:59 Intake Total 96.917 Output Total 700 5200 Balance -700 -5200 96.917 Weight 125.418 kg Intake: Intake, IV Titration 96.917 Amount Bumetanide 10 mg In 96.917 Dextrose 5% in Water 60 ml @ 0.5 MG/HR 5 mls/hr IV .Q20H [facility] Rx#: [id number] Output: Urine 700 5200 Other: Voiding Method Urinal Urinal - Labs CBC & Chem 7: 10/16/21 06:37 10/16/21 06:37 Labs: Abnormal Lab Results - Last 24 Hours (Table) 10/15/21 10/15/21 10/15/21 Range/Units 10:43 12:02 16:36 RBC (4.40-5.60) X 10*6/uL Hgb (13.0-17.0) g/dL Hct (39.6-50.0) % MCHC (32.0-37.0) g/dL Sodium 136 L (137-145) mmol/L Potassium (3.5-5.1) mmol/L Carbon Dioxide 32 H (22-30) mmol/L BUN 44 H (9-20) mg/dL Creatinine (0.66-1.25) mg/dL Glucose 134 H (74-99) mg/dL POC Glucose (mg/dL) 153 H 181 H (75-99) mg/dL 10/15/21 10/16/21 10/16/21 Range/Units 20:30 06:37 06:37 RBC 3.07 L (4.40-5.60) X 10*6/uL Hgb 8.9 L (13.0-17.0) g/dL Hct 29.7 L (39.6-50.0) % MCHC 30.0 L (32.0-37.0) g/dL Sodium (137-145) mmol/L Potassium 5.7 H (3.5-5.1) mmol/L Carbon Dioxide 35 H (22-30) mmol/L BUN 50 H (9-20) mg/dL Creatinine 1.29 H (0.66-1.25) mg/dL Glucose 210 H (74-99) mg/dL POC Glucose (mg/dL) 254 H (75-99) mg/dL 10/16/21 10/16/21 Range/Units 07:05 11:41 RBC (4.40-5.60) X 10*6/uL Hgb (13.0-17.0) g/dL Hct (39.6-50.0) % MCHC (32.0-37.0) g/dL Sodium (137-145) mmol/L Potassium (3.5-5.1) mmol/L Carbon Dioxide (22-30) mmol/L BUN (9-20) mg/dL Creatinine (0.66-1.25) mg/dL Glucose (74-99) mg/dL POC Glucose (mg/dL) 222 H 156 H (75-99) mg/dL
[2021-10-16] MEDS: acetaZOLAMIDE 250 MG TAB PO SCH ×2 (14:20→22:03)
[2021-10-16 16:54] LABS: Glucose,Whole Blood 145 mg/dL (75-99)
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
[2021-10-16 20:47] LABS: Glucose,Whole Blood 68 mg/dL (75-99)
[2021-10-16 21:10] LABS: Glucose,Whole Blood 50 mg/dL (75-99)
[2021-10-16 21:14] LABS: Glucose,Whole Blood 57 mg/dL (75-99)
[2021-10-16 21:45] LABS: Glucose,Whole Blood 89 mg/dL (75-99)
[2021-10-17 01:41] LABS: Glucose,Whole Blood 173 mg/dL (75-99)
[2021-10-17] MEDS: BUMETANIDE 10 MG in DEXTROSE 5% IN WATER 60 ML IV SCH ×2 (05:09)
[2021-10-17 07:21] LABS: Glucose,Whole Blood 146 mg/dL (75-99)
[2021-10-17 07:32] LABS: African American GFR (CKD) 73 (>60 ml/min/1.73 sqM); Anion Gap 3 mmol/L; Blood Urea Nitrogen 54 mg/dL (9-20); Calcium 8.5 mg/dL (8.4-10.2); Carbon Dioxide 35 mmol/L (22-30); Chloride 96 mmol/L (98-107); Glucose 144 mg/dL (74-99); Non-African American GFR(CKD) 63 (>60 ml/min/1.73 sqM); Potassium 4.5 mmol/L (3.5-5.1); Sodium 134 mmol/L (137-145)
[2021-10-17] MEDS: ATORVASTATIN 20 MG TAB PO SCH (07:49)
[2021-10-17] MEDS: hydrALAZINE HCL 50 MG TAB PO SCH ×2 (07:49→21:45)
[2021-10-17] MEDS: GABAPENTIN 300 MG CAP PO SCH ×2 (07:49→21:48)
[2021-10-17] MEDS: RIVAROXABAN 20 MG TAB PO SCH (07:49)
[2021-10-17] MEDS: INSULIN ASPART (NovoLOG) 100 UNIT/ML VIAL SQ SCH ×4 (07:49→21:42)
[2021-10-17] MEDS: acetaZOLAMIDE 250 MG TAB PO SCH ×2 (07:49→21:48)
[2021-10-17] MEDS: EZETIMIBE 10 MG TAB PO SCH (07:50)
[2021-10-17] MEDS: NYSTATIN 100,000UNIT/GM CREAM 30 GM TUBE TOPICAL SCH ×2 (07:51→21:48)
[2021-10-17] MEDS: INSULN ASP PRT/INSULIN ASPART 100 UNIT/ML 10 ML VIAL SQ SCH ×3 (07:52→17:29)
[2021-10-17 11:09] LABS: Glucose,Whole Blood 249 mg/dL (75-99)
--- NOTE | 2021-10-17 11:09 | CONS ---
CONSULTATION This patient is a 56-year-old gentleman who is well known to me from the past. The patient had a ray amputation of the left foot big toe. The patient was coming to the wound clinic for followup. We have been using Medihoney gel and Hydrofera Blue. Patient has been admitted with medical issues. He has a history of sleep apnea. He has been treated with Lasix. I was consulted for wound evaluation. MEDICAL HISTORY: History of diabetes, sleep apnea. SURGICAL HISTORY: Patient had a ray amputation of the left foot big toe for wet gangrene of the big toe. The patient also has an ulcer on the lateral aspect of the right ankle which is being treated with local wound care. PHYSICAL EXAMINATION: Patient was seen in his room. NECK: Supple. Trachea central. Chest has crackles bilaterally. First and second sounds present. ABDOMEN: Soft, nontender. VASCULAR EXAMINATION: Brachial, radial and femoral 1+. Patient has a left foot big toe ray amputation. Base of the wound has some devitalized tissue. Right ankle wound is granulating. There is some swelling of both lower extremities. PLAN: Debridement of the wound and local wound care of the right lower extremity. MMODL / IJN: [id number] /
--- NOTE | 2021-10-17 11:13 | OP ---
OPERATIVE REPORT PREOPERATIVE DIAGNOSIS: Ray amputation of the left foot big toe with presence of some devitalized tissue. Measurement 4 x 5 x 0.1 cm. POSTOPERATIVE DIAGNOSIS: Postoperative measurement is same, 4 x 5 x 0.1 cm. Left lateral malleolus is 2 x 1.5 x 0.2. PROCEDURE DESCRIPTION: The patient was seen. Left foot was prepped and draped in usual sterile manner. The patient had some devitalized tissue. Using a curette, we cleaned the wound down to subcutaneous tissue. No active bleeding was noted. Underneath the base is well granulated. PLAN: We will use Medihoney gel to the wound of the left big toe and right ankle area. If the patient goes home, will follow in the wound clinic on Tuesday. MMMARSHAL / LARRYN: [id number] /
[2021-10-17 16:39] LABS: Glucose,Whole Blood 200 mg/dL (75-99)
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
[2021-10-17] MEDS: hydroCHLOROthiazide 12.5 MG CAP PO SCH (17:28)
--- NOTE | 2021-10-17 18:48 | P.PN ---
Subjective This is a 56-year-old male with a past medical history significant for recent left toe amputation, hypertension, hyperlipidemia, congestive heart failure, diabetes, and pulmonary embolism on Xarelto. Patient follows with Dr. Vee in [facility].. We have been asked to see the patient in consultation for congestive heart failure. Patient examined at the bedside. Patient presented to the hospital to chief complaint of weakness. Patient also reports having shortness of breath and increased lower extremity edema. The patient currently reports he is short of breath. He denies fever or chills. He denies chest pain or pressure. He denies dizziness or lightheadedness. Patient was evaluated by pulmonary medicine this morning and was started on an IV Lasix infusion. Patient reports having an echocardiogram recently and believes his ejection fraction was normal. He denies ever having a stress test or heart catheterization with his primary clinical pathologist. EKG reveals sinus mechanism with no signs of acute ischemia Chest xray correlate for congestive heart failure with bibasilar effusions. Venous Doppler: Negative for DVT bilaterally Laboratory data: WBC 6.3. Hemoglobin 9.5. Platelet count 282. Sodium 138. Potassium 4.6. BUN 45. Creatinine 1.19. Troponin negative 1. ProBNP 559. Current home cardiac medications include Lasix 40 mg twice a day, lisinopril 40 mg daily, Xarelto 20 mg daily, and hydralazine 100 mg twice a day 10/15/2021 Patient examined this morning at the bedside. Patient denies chest pain or pressure. He does report improvement in his shortness of breath. He remains on IV Lasix infusion. Fluid balance over the last 24 hours is -626 mL. Echocardiogram completed revealing ejection fraction 55-60%, mild mitral regurgitation, and mild tricuspid regurgitation 10/16/2021 Patient examined this morning. He is sitting up in the chair. Denies chest pain or pressure. He states his SOB is improving. He was changed to Bumex infusion yesterday per internal medicine. FLuid balance over the last 24 hours is 5900cc. Creatinine 1.29 today. Potassium 5.7. 10/17 Patient seen and examined. Patient states his swelling continues improved on the Bumex with excellent urine output -1.5 L every 8 hours. Creatinine 1.26 today fairly stable compared to yesterday. Hyperkalemia has improved. Denies any chest pain or pressure. PHYSICAL EXAM: VITAL SIGNS: Reviewed. GENERAL: Well-developed in no acute distress. HEENT: Head is normocephalic. Pupils are equal, round. Sclerae anicteric. Mucous membranes of the mouth are moist. Neck supple. No JVD or thyromegaly LUNGS: Respirations even and unlabored. Lungs diminished bilaterally, slightly increased aeration in the bases HEART: Regular rate and rhythm. S1 and S2 heard. Systolic murmur noted. ABDOMEN: Soft. Nondistended. Nontender. EXTREMITIES: Normal range of motion. No clubbing or cyanosis. Peripheral pulses intact. Bilateral lower extremity edema noted, remains significant with weeping. NEUROLOGIC: Awake and alert. Oriented x 3. ASSESSMENT: Generalized weakness Shortness of breath Bilateral pleural effusions per XR Acute on chronic congestive heart failure, with preserved LV function Recent diagnosis of pulmonary embolism, on Xarelto Hypertension Hyperlipidemia Diabetes Recent left great toe amputation Hyperkalemia PLAN: Continue IV Bumex infusion Daily weights Accurate I&O Monitor kidney function Continue anticoagulation with Xarelto Continue additional home cardiac medications Patient continues to improve with IV Bumex diuresis and likely 2-3 more days of aggressive IV diuresis. Further recommendations pending patient's course Objective - Vital Signs Vital signs: Vital Signs Temp 98.4 F 10/17/21 14:00 Pulse 86 10/17/21 14:00 Resp 16 10/17/21 14:00 BP 105/60 10/17/21 14:00 Pulse Ox 90 L 10/17/21 14:00 Intake & Output 10/16/21 10/17/21 10/17/21 18:59 06:59 18:59 Intake Total 576.917 453.333 320 Output Total 2150 2450 1425 Balance -1573.083 -1996.667 -1105 Weight 121 kg Intake: Intake, IV Titration 96.917 99.333 Amount Bumetanide 10 mg In 96.917 99.333 Dextrose 5% in Water 60 ml @ 0.5 MG/HR 5 mls/hr IV .Q20H [facility] Rx#: [id number] Oral 480 354 320 Output: Urine 2150 2450 1425 Other: Voiding Method Urinal Urinal # Bowel Movements 0 - Labs CBC & Chem 7: 10/16/21 06:37 10/17/21 06:39 Labs: Abnormal Lab Results - Last 24 Hours (Table) 10/16/21 10/16/21 10/16/21 Range/Units 20:31 20:51 21:13 Sodium (137-145) mmol/L Chloride (98-107) mmol/L Carbon Dioxide (22-30) mmol/L BUN (9-20) mg/dL Creatinine (0.66-1.25) mg/dL Glucose (74-99) mg/dL POC Glucose (mg/dL) 68 L 50 L 57 L (75-99) mg/dL 10/17/21 10/17/21 10/17/21 Range/Units 01:37 06:39 07:06 Sodium 134 L (137-145) mmol/L Chloride 96 L (98-107) mmol/L Carbon Dioxide 35 H (22-30) mmol/L BUN 54 H (9-20) mg/dL Creatinine 1.26 H (0.66-1.25) mg/dL Glucose 144 H (74-99) mg/dL POC Glucose (mg/dL) 173 H 146 H (75-99) mg/dL 10/17/21 10/17/21 Range/Units 11:07 16:37 Sodium (137-145) mmol/L Chloride (98-107) mmol/L Carbon Dioxide (22-30) mmol/L BUN (9-20) mg/dL Creatinine (0.66-1.25) mg/dL Glucose (74-99) mg/dL POC Glucose (mg/dL) 249 H 200 H (75-99) mg/dL
[2021-10-17 21:13] LABS: Glucose,Whole Blood 105 mg/dL (75-99)
[2021-10-18] MEDS: hydroCHLOROthiazide 12.5 MG CAP PO SCH ×3 (01:06→23:10)
[2021-10-18 03:04] LABS: Glucose,Whole Blood 84 mg/dL (75-99)
[2021-10-18] MEDS: BUMETANIDE 10 MG in DEXTROSE 5% IN WATER 60 ML IV SCH ×2 (05:55)
[2021-10-18 06:15] LABS: African American GFR (CKD) 65 (>60 ml/min/1.73 sqM); Anion Gap 6 mmol/L; Blood Urea Nitrogen 65 mg/dL (9-20); Calcium 8.6 mg/dL (8.4-10.2); Carbon Dioxide 36 mmol/L (22-30); Chloride 92 mmol/L (98-107); Glucose 133 mg/dL (74-99); Non-African American GFR(CKD) 56 (>60 ml/min/1.73 sqM); Potassium 4.2 mmol/L (3.5-5.1); Sodium 134 mmol/L (137-145)
[2021-10-18 06:59] LABS: Glucose,Whole Blood 135 mg/dL (75-99)
[2021-10-18] MEDS: INSULN ASP PRT/INSULIN ASPART 100 UNIT/ML 10 ML VIAL SQ SCH ×3 (08:40→17:41)
[2021-10-18] MEDS: GABAPENTIN 300 MG CAP PO SCH ×2 (08:53→21:05)
[2021-10-18] MEDS: ATORVASTATIN 20 MG TAB PO SCH (08:53)
[2021-10-18] MEDS: EZETIMIBE 10 MG TAB PO SCH (08:53)
[2021-10-18] MEDS: acetaZOLAMIDE 250 MG TAB PO SCH ×2 (08:53→21:05)
[2021-10-18] MEDS: RIVAROXABAN 20 MG TAB PO SCH (08:53)
[2021-10-18] MEDS: INSULIN ASPART (NovoLOG) 100 UNIT/ML VIAL SQ SCH ×4 (08:53→21:04)
[2021-10-18] MEDS: NYSTATIN 100,000UNIT/GM CREAM 30 GM TUBE TOPICAL SCH ×2 (08:54→21:08)
[2021-10-18] MEDS: hydrALAZINE HCL 50 MG TAB PO SCH ×2 (08:55→21:05)
[2021-10-18 11:42] LABS: Glucose,Whole Blood 201 mg/dL (75-99)
--- NOTE | 2021-10-18 16:32 | P.PN ---
Subjective This is a 56-year-old male with a past medical history significant for recent left toe amputation, hypertension, hyperlipidemia, congestive heart failure, diabetes, and pulmonary embolism on Xarelto. Patient follows with Dr. Vee in [facility].. We have been asked to see the patient in consultation for congestive heart failure. Patient examined at the bedside. Patient presented to the hospital to chief complaint of weakness. Patient also reports having shortness of breath and increased lower extremity edema. The patient currently reports he is short of breath. He denies fever or chills. He denies chest pain or pressure. He denies dizziness or lightheadedness. Patient was evaluated by pulmonary medicine this morning and was started on an IV Lasix infusion. Patient reports having an echocardiogram recently and believes his ejection fraction was normal. He denies ever having a stress test or heart catheterization with his primary call or contact centre operator. EKG reveals sinus mechanism with no signs of acute ischemia Chest xray correlate for congestive heart failure with bibasilar effusions. Venous Doppler: Negative for DVT bilaterally Laboratory data: WBC 6.3. Hemoglobin 9.5. Platelet count 282. Sodium 138. Potassium 4.6. BUN 45. Creatinine 1.19. Troponin negative 1. ProBNP 559. Current home cardiac medications include Lasix 40 mg twice a day, lisinopril 40 mg daily, Xarelto 20 mg daily, and hydralazine 100 mg twice a day 10/15/2021 Patient examined this morning at the bedside. Patient denies chest pain or pressure. He does report improvement in his shortness of breath. He remains on IV Lasix infusion. Fluid balance over the last 24 hours is -626 mL. Echocardiogram completed revealing ejection fraction 55-60%, mild mitral regurgitation, and mild tricuspid regurgitation 10/16/2021 Patient examined this morning. He is sitting up in the chair. Denies chest pain or pressure. He states his SOB is improving. He was changed to Bumex infusion yesterday per internal medicine. FLuid balance over the last 24 hours is 5900cc. Creatinine 1.29 today. Potassium 5.7. 10/17 Patient seen and examined. Patient states his swelling continues improved on the Bumex with excellent urine output -1.5 L every 8 hours. Creatinine 1.26 today fairly stable compared to yesterday. Hyperkalemia has improved. Denies any chest pain or pressure. 10/18 Seen and examined. Patient states the swelling continues improved. He has been putting out with minus approximately 5 L last 24 hours with mild increasing creatinine up to 1.38 PHYSICAL EXAM: VITAL SIGNS: Reviewed. GENERAL: Well-developed in no acute distress. HEENT: Head is normocephalic. Pupils are equal, round. Sclerae anicteric. Mucous membranes of the mouth are moist. Neck supple. No JVD or thyromegaly LUNGS: Respirations even and unlabored. Lungs diminished bilaterally, slightly increased aeration in the bases HEART: Regular rate and rhythm. S1 and S2 heard. Systolic murmur noted. ABDOMEN: Soft. Nondistended. Nontender. EXTREMITIES: Normal range of motion. No clubbing or cyanosis. Peripheral pulses intact. Bilateral lower extremity edema noted, remains significant with weeping. NEUROLOGIC: Awake and alert. Oriented x 3. ASSESSMENT: Generalized weakness Shortness of breath Bilateral pleural effusions per XR Acute on chronic congestive heart failure, with preserved LV function Recent diagnosis of pulmonary embolism, on Xarelto Hypertension Hyperlipidemia Diabetes Recent left great toe amputation Hyperkalemia PLAN: Continue IV Bumex infusion Daily weights Accurate I&O Monitor kidney function Continue anticoagulation with Xarelto Continue additional home cardiac medications Patient's creatinine mildly increased however still appears volume overloaded and continue with diuretics. Objective - Vital Signs Vital signs: Vital Signs Temp 98.4 F 10/18/21 14:00 Pulse 82 10/18/21 14:00 Resp 18 10/18/21 14:00 BP 106/65 10/18/21 14:00 Pulse Ox 94 L 10/18/21 14:00 Intake & Output 10/17/21 10/18/21 10/18/21 18:59 06:59 18:59 Intake Total 320 450 Output Total 1425 3300 1400 Balance -1105 -2850 -1400 Weight 115.9 kg Intake: Intake, IV Titration 100 Amount Bumetanide 10 mg In 100 Dextrose 5% in Water 60 ml @ 0.5 MG/HR 5 mls/hr IV .Q20H [facility] Rx#: [id number] Oral 320 350 Output: Urine 1425 3300 1400 Other: Voiding Method Urinal Urinal Urinal # Bowel Movements 0 1 - Labs CBC & Chem 7: 10/16/21 06:37 10/18/21 05:20 Labs: Abnormal Lab Results - Last 24 Hours (Table) 10/17/21 10/17/21 10/18/21 Range/Units 16:37 21:11 05:20 Sodium 134 L (137-145) mmol/L Chloride 92 L (98-107) mmol/L Carbon Dioxide 36 H (22-30) mmol/L BUN 65 H (9-20) mg/dL Creatinine 1.38 H (0.66-1.25) mg/dL Glucose 133 H (74-99) mg/dL POC Glucose (mg/dL) 200 H 105 H (75-99) mg/dL 10/18/21 10/18/21 Range/Units 06:58 11:41 Sodium (137-145) mmol/L Chloride (98-107) mmol/L Carbon Dioxide (22-30) mmol/L BUN (9-20) mg/dL Creatinine (0.66-1.25) mg/dL Glucose (74-99) mg/dL POC Glucose (mg/dL) 135 H 201 H (75-99) mg/dL
[2021-10-18 16:48] LABS: Glucose,Whole Blood 193 mg/dL (75-99)
[2021-10-18 20:21] LABS: Glucose,Whole Blood 159 mg/dL (75-99)
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
[2021-10-19 01:42] LABS: Glucose,Whole Blood 141 mg/dL (75-99)
[2021-10-19] MEDS: BUMETANIDE 10 MG in DEXTROSE 5% IN WATER 60 ML IV SCH ×4 (03:51→21:18)
[2021-10-19 06:26] LABS: Glucose,Whole Blood 147 mg/dL (75-99)
[2021-10-19 07:29] LABS: African American GFR (CKD) 63 (>60 ml/min/1.73 sqM); Anion Gap 4 mmol/L; Blood Urea Nitrogen 74 mg/dL (9-20); Calcium 8.7 mg/dL (8.4-10.2); Carbon Dioxide 39 mmol/L (22-30); Chloride 91 mmol/L (98-107); Glucose 134 mg/dL (74-99); Non-African American GFR(CKD) 54 (>60 ml/min/1.73 sqM); Potassium 3.9 mmol/L (3.5-5.1); Sodium 134 mmol/L (137-145)
[2021-10-19] MEDS: GABAPENTIN 300 MG CAP PO SCH ×2 (08:18→20:31)
[2021-10-19] MEDS: EZETIMIBE 10 MG TAB PO SCH (08:19)
[2021-10-19] MEDS: RIVAROXABAN 20 MG TAB PO SCH (08:19)
[2021-10-19] MEDS: INSULN ASP PRT/INSULIN ASPART 100 UNIT/ML 10 ML VIAL SQ SCH ×3 (08:19→17:12)
[2021-10-19] MEDS: ATORVASTATIN 20 MG TAB PO SCH (08:19)
[2021-10-19] MEDS: INSULIN ASPART (NovoLOG) 100 UNIT/ML VIAL SQ SCH ×4 (08:19→21:19)
[2021-10-19] MEDS: hydrALAZINE HCL 50 MG TAB PO SCH ×2 (08:19→20:31)
[2021-10-19] MEDS: hydroCHLOROthiazide 12.5 MG CAP PO SCH ×2 (08:19→20:31)
[2021-10-19] MEDS: acetaZOLAMIDE 250 MG TAB PO SCH ×2 (08:19→20:31)
[2021-10-19] MEDS: NYSTATIN 100,000UNIT/GM CREAM 30 GM TUBE TOPICAL SCH ×2 (08:20→21:19)
[2021-10-19 11:06] LABS: Glucose,Whole Blood 152 mg/dL (75-99)
[2021-10-19 13:58] VITALS: BMI 37.3
--- NOTE | 2021-10-19 14:38 | P.PN ---
Subjective Progress Note Date: 10/19/21 HISTORY OF PRESENT ILLNESS: This is a 56-year-old male with a past medical history significant for recent left toe amputation, hypertension, hyperlipidemia, congestive heart failure, diabetes, and pulmonary embolism on Xarelto. Patient follows with Dr. Vee in [facility].. We have been asked to see the patient in consultation for congestive heart failure. Patient examined at the bedside. Patient presented to the hospital to chief complaint of weakness. Patient also reports having shortness of breath and increased lower extremity edema. The patient currently reports he is short of breath. He denies fever or chills. He denies chest pain or pressure. He denies dizziness or lightheadedness. Patient was evaluated by pulmonary medicine this morning and was started on an IV Lasix infusion. Patient reports having an echocardiogram recently and believes his ejection frac tion was normal. 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 EKG reveals sinus mechanism with no signs of acute ischemia Chest xray correlate for congestive heart failure with bibasilar effusions. Venous Doppler: Negative for DVT bilaterally Laboratory data: WBC 6.3. Hemoglobin 9.5. Platelet count 282. Sodium 138. Potassium 4.6. BUN 45. Creatinine 1.19. Troponin negative 1. ProBNP 559. Current home cardiac medications include Lasix 40 mg twice a day, lisinopril 40 mg daily, Xarelto 20 mg daily, and hydralazine 100 mg twice a day 10/15/2021 Patient examined this morning at the bedside. Patient denies chest pain or pressure. He does report improvement in his shortness of breath. He remains on IV Lasix infusion. Fluid balance over the last 24 hours is -626 mL. Echocardiogram completed revealing ejection fraction 55-60%, mild mitral regurgitation, and mild tricuspid regurgitation 10/16/2021 Patient examined this morning. He is sitting up in the chair. Denies chest pain or pressure. He states his SOB is improving. He was changed to Bumex infusion yesterday per internal medicine. FLuid balance over the last 24 hours is 5900cc. Creatinine 1.29 today. Potassium 5.7. 10/17 Patient seen and examined. Patient states his swelling continues improved on the Bumex with excellent urine output -1.5 L every 8 hours. Creatinine 1.26 today fairly stable compared to yesterday. Hyperkalemia has improved. Denies any chest pain or pressure. 10/18 Seen and examined. Patient states the swelling continues improved. He has been putting out with minus approximately 5 L last 24 hours with mild increasing creatinine up to 1.38 10/19/2021 Patient examined this afternoon. Patient is sitting up in the chair. Patient remains on a Bumex infusion at 0.5 mg an hour. Patient states his lower extremity edema is slowly improving. He also reports improvement in shortness of breath. Creatinine today 1.43, up from 1.38 yesterday. Fluid balance over the last 24 hours is -5950 mL. PHYSICAL EXAM: VITAL SIGNS: Reviewed. GENERAL: Well-developed in no acute distress. HEENT: Head is normocephalic. Pupils are equal, round. Sclerae anicteric. Mucous membranes of the mouth are moist. Neck supple. No JVD or thyromegaly LUNGS: Respirations even and unlabored. Lungs diminished bilaterally with crackles at the bases HEART: Regular rate and rhythm. S1 and S2 heard. Systolic murmur noted. ABDOMEN: Soft. Nondistended. Nontender. EXTREMITIES: Normal range of motion. No clubbing or cyanosis. Peripheral pulses intact. Bilateral lower extremity edema noted, improving NEUROLOGIC: Awake and alert. Oriented x 3. ASSESSMENT: Generalized weakness Shortness of breath Bilateral pleural effusions per XR Acute on chronic congestive heart failure, with preserved LV function Recent diagnosis of pulmonary embolism, on Xarelto Hypertension Hyperlipidemia Diabetes Recent left great toe amputation Hyperkalemia PLAN: Continue IV Bumex infusion for an additional 24 hours. Daily weights Accurate I&O Monitor kidney function Continue anticoagulation with Xarelto Recommend Jardiance for diastolic heart failure. This can be discussed on an outpatient basis. Further recommendations pending patient's course Nurse practitioner note has been reviewed by physician. Signing provider agrees with the documented findings, assessment, and plan of care. Objective - Vital Signs Vital signs: Vital Signs Temp 97.8 F 10/19/21 07:20 Pulse 81 10/19/21 07:20 Resp 18 10/19/21 08:00 BP 103/61 10/19/21 07:20 Pulse Ox 92 L 10/19/21 07:20 Intake & Output 10/18/21 10/19/21 10/19/21 18:59 06:59 18:59 Intake Total 100 Output Total 2550 3500 650 Balance -3830 -3400 -650 Weight 111.5 kg Intake: Intake, IV Titration 100 Amount Bumetanide 10 mg In 100 Dextrose 5% in Water 60 ml @ 0.5 MG/HR 5 mls/hr IV .Q20H [facility] Rx#: [id number] Output: Urine 2550 3500 650 Other: Voiding Method Urinal Urinal Urinal # Voids 1 # Bowel Movements 1 0 - Labs CBC & Chem 7: 10/16/21 06:37 10/19/21 06:33 Labs: Abnormal Lab Results - Last 24 Hours (Table) 10/18/21 10/18/21 10/18/21 Range/Units 11:41 16:46 20:19 Sodium (137-145) mmol/L Chloride (98-107) mmol/L Carbon Dioxide (22-30) mmol/L BUN (9-20) mg/dL Creatinine (0.66-1.25) mg/dL Glucose (74-99) mg/dL POC Glucose (mg/dL) 201 H 193 H 159 H (75-99) mg/dL 10/19/21 10/19/21 10/19/21 Range/Units 01:37 06:24 06:33 Sodium 134 L (137-145) mmol/L Chloride 91 L (98-107) mmol/L Carbon Dioxide 39 H (22-30) mmol/L BUN 74 H (9-20) mg/dL Creatinine 1.43 H (0.66-1.25) mg/dL Glucose 134 H (74-99) mg/dL POC Glucose (mg/dL) 141 H 147 H (75-99) mg/dL
[2021-10-19 16:13] LABS: Glucose,Whole Blood 176 mg/dL (75-99)
[2021-10-19 20:19] LABS: Glucose,Whole Blood 141 mg/dL (75-99)
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
[2021-10-20 07:05] LABS: Glucose,Whole Blood 165 mg/dL (75-99)
[2021-10-20] MEDS: INSULIN ASPART (NovoLOG) 100 UNIT/ML VIAL SQ SCH ×4 (08:30→20:09)
[2021-10-20] MEDS: INSULN ASP PRT/INSULIN ASPART 100 UNIT/ML 10 ML VIAL SQ SCH ×3 (08:31→17:38)
[2021-10-20] MEDS: EZETIMIBE 10 MG TAB PO SCH (08:31)
[2021-10-20] MEDS: hydrALAZINE HCL 50 MG TAB PO SCH ×3 (08:32→20:09)
[2021-10-20] MEDS: hydroCHLOROthiazide 12.5 MG CAP PO SCH (08:32)
[2021-10-20] MEDS: GABAPENTIN 300 MG CAP PO SCH ×2 (08:32→20:09)
[2021-10-20] MEDS: ATORVASTATIN 20 MG TAB PO SCH (08:33)
[2021-10-20] MEDS: RIVAROXABAN 20 MG TAB PO SCH (08:35)
[2021-10-20] MEDS: BUMETANIDE 10 MG in DEXTROSE 5% IN WATER 60 ML IV SCH ×2 (08:36)
[2021-10-20] MEDS: acetaZOLAMIDE 250 MG TAB PO SCH ×2 (08:36→20:09)
[2021-10-20] MEDS: NYSTATIN 100,000UNIT/GM CREAM 30 GM TUBE TOPICAL SCH ×2 (08:36→20:09)
[2021-10-20] MEDS: ISOSORBIDE MONONITRATE ER 30 MG TAB.ER.24H PO SCH (10:36)
--- NOTE | 2021-10-20 10:38 | P.PN ---
Subjective Progress Note Date: 10/20/21 HISTORY OF PRESENT ILLNESS: This is a 56-year-old male with a past medical history significant for recent left toe amputation, hypertension, hyperlipidemia, congestive heart failure, diabetes, and pulmonary embolism on Xarelto. Patient follows with Dr. Vee in [facility].. We have been asked to see the patient in consultation for congestive heart failure. Patient examined at the bedside. Patient presented to the hospital to chief complaint of weakness. Patient also reports having shortness of breath and increased lower extremity edema. The patient currently reports he is short of breath. He denies fever or chills. He denies chest pain or pressure. He denies dizziness or lightheadedness. Patient was evaluated by pulmonary medicine this morning and was started on an IV Lasix infusion. Patient reports having an echocardiogram recently and believes his ejection frac tion was normal. 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 EKG reveals sinus mechanism with no signs of acute ischemia Chest xray correlate for congestive heart failure with bibasilar effusions. Venous Doppler: Negative for DVT bilaterally Laboratory data: WBC 6.3. Hemoglobin 9.5. Platelet count 282. Sodium 138. Potassium 4.6. BUN 45. Creatinine 1.19. Troponin negative 1. ProBNP 559. Current home cardiac medications include Lasix 40 mg twice a day, lisinopril 40 mg daily, Xarelto 20 mg daily, and hydralazine 100 mg twice a day 10/15/2021 Patient examined this morning at the bedside. Patient denies chest pain or pressure. He does report improvement in his shortness of breath. He remains on IV Lasix infusion. Fluid balance over the last 24 hours is -626 mL. Echocardiogram completed revealing ejection fraction 55-60%, mild mitral regurgitation, and mild tricuspid regurgitation 10/16/2021 Patient examined this morning. He is sitting up in the chair. Denies chest pain or pressure. He states his SOB is improving. He was changed to Bumex infusion yesterday per internal medicine. FLuid balance over the last 24 hours is 5900cc. Creatinine 1.29 today. Potassium 5.7. 10/17 Patient seen and examined. Patient states his swelling continues improved on the Bumex with excellent urine output -1.5 L every 8 hours. Creatinine 1.26 today fairly stable compared to yesterday. Hyperkalemia has improved. Denies any chest pain or pressure. 10/18 Seen and examined. Patient states the swelling continues improved. He has been putting out with minus approximately 5 L last 24 hours with mild increasing creatinine up to 1.38 10/19/2021 Patient examined this afternoon. Patient is sitting up in the chair. Patient remains on a Bumex infusion at 0.5 mg an hour. Patient states his lower extremity edema is slowly improving. He also reports improvement in shortness of breath. Creatinine today 1.43, up from 1.38 yesterday. Fluid balance over the last 24 hours is -5950 mL. 10/20/2021 Patient examined this morning. Patient is sitting on the side of the bed. Patient denies chest pain or pressure. He currently denies shortness of breath. He remains on a Bumex infusion of 0.5 mg an hour. His lab work from this morning is currently pending. Fluid balance over the last 24 hours is -4500 mL. Patient states he has been up ambulating without difficulty. PHYSICAL EXAM: VITAL SIGNS: Reviewed. GENERAL: Well-developed in no acute distress. HEENT: Head is normocephalic. Pupils are equal, round. Sclerae anicteric. Mucous membranes of the mouth are moist. Neck supple. No JVD or thyromegaly LUNGS: Respirations even and unlabored. Lungs diminished bilaterally. HEART: Regular rate and rhythm. S1 and S2 heard. Systolic murmur noted. ABDOMEN: Soft. Nondistended. Nontender. EXTREMITIES: Normal range of motion. No clubbing or cyanosis. Peripheral pulses intact. Bilateral lower extremity edema noted, improving NEUROLOGIC: Awake and alert. Oriented x 3. ASSESSMENT: Generalized weakness Shortness of breath Bilateral pleural effusions per XR Acute on chronic congestive heart failure, with preserved LV function Recent diagnosis of pulmonary embolism, on Xarelto Hypertension Hyperlipidemia Diabetes Recent left great toe amputation Hyperkalemia PLAN: Await kidney function results this AM. Pending creatinine, will decide to either continue Bumex for another day or transition to oral Discontinue hydrochlorothiazide Decrease dose of hydralazine to 50 mg 3 times a day Add Imdur 30 mg daily Daily weights Accurate I&O Continue anticoagulation with Xarelto Recommend Jardiance for diastolic heart failure. This can be discussed on an outpatient basis. Further recommendations pending patient's course Nurse practitioner note has been reviewed by physician. Signing provider agrees with the documented findings, assessment, and plan of care. Objective - Vital Signs Vital signs: Vital Signs Temp 98.2 F 10/20/21 07:38 Pulse 82 10/20/21 08:30 Resp 17 10/20/21 08:30 BP 107/56 10/20/21 08:28 Pulse Ox 94 L 10/20/21 08:17 Intake & Output 10/19/21 10/20/21 10/20/21 18:59 06:59 18:59 Intake Total 60 287.25 56.5 Output Total 1575 3330 600 Balance -1515 -3042.75 -543.5 Weight 111.5 kg 109.1 kg Intake: IV 60 Bumetanide 10 mg In 60 Dextrose 5% in Water 60 ml @ 0.5 MG/HR 5 mls/hr IV .Q20H [facility] Rx#: [id number] Intake, IV Titration 87.25 56.5 Amount Bumetanide 10 mg In 87.25 56.5 Dextrose 5% in Water 60 ml @ 0.5 MG/HR 5 mls/hr IV .Q20H [facility] Rx#: [id number] Oral 200 Output: Urine 1575 3330 600 Other: Voiding Method Urinal Urinal - Labs CBC & Chem 7: 10/16/21 06:37 10/19/21 06:33 Labs: Abnormal Lab Results - Last 24 Hours (Table) 10/19/21 10/19/21 10/19/21 Range/Units 11:04 16:11 20:17 POC Glucose (mg/dL) 152 H 176 H 141 H (75-99) mg/dL 10/20/21 Range/Units 07:02 POC Glucose (mg/dL) 165 H (75-99) mg/dL
[2021-10-20 11:21] LABS: Glucose,Whole Blood 201 mg/dL (75-99)
[2021-10-20 11:35] LABS: African American GFR (CKD) 67.1 (60.0-200.0); Anion Gap 14.1 mmol/L (10.00-18.00); BUN/Creat Ratio 55.48 Ratio (12.00-20.00); Blood Urea Nitrogen 74.9 mg/dL (9.0-27.0); Calcium 8.9 mg/dL (8.7-10.3); Carbon Dioxide 35.1 mmol/L (20.0-27.5); Non-African American GFR(CKD) 57.9 (60.0-200.0)
[2021-10-20 16:42] LABS: Glucose,Whole Blood 126 mg/dL (75-99)
[2021-10-20 20:06] LABS: Glucose,Whole Blood 118 mg/dL (75-99)
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
[2021-10-21 07:17] LABS: Glucose,Whole Blood 184 mg/dL (75-99)
[2021-10-21] MEDS: INSULIN ASPART (NovoLOG) 100 UNIT/ML VIAL SQ SCH ×4 (08:24→20:59)
[2021-10-21] MEDS: INSULN ASP PRT/INSULIN ASPART 100 UNIT/ML 10 ML VIAL SQ SCH ×3 (08:28→17:05)
[2021-10-21] MEDS: EZETIMIBE 10 MG TAB PO SCH (08:28)
[2021-10-21] MEDS: acetaZOLAMIDE 250 MG TAB PO SCH ×2 (08:28→21:13)
[2021-10-21] MEDS: ATORVASTATIN 20 MG TAB PO SCH (08:29)
[2021-10-21] MEDS: ISOSORBIDE MONONITRATE ER 30 MG TAB.ER.24H PO SCH (08:29)
[2021-10-21] MEDS: RIVAROXABAN 20 MG TAB PO SCH (08:29)
[2021-10-21] MEDS: GABAPENTIN 300 MG CAP PO SCH (08:30)
[2021-10-21] MEDS: hydrALAZINE HCL 50 MG TAB PO SCH ×2 (08:32→15:42)
--- NOTE | 2021-10-21 09:26 | P.PN ---
Subjective Progress Note Date: 10/21/21 HISTORY OF PRESENT ILLNESS: This is a 56-year-old male with a past medical history significant for recent left toe amputation, hypertension, hyperlipidemia, congestive heart failure, diabetes, and pulmonary embolism on Xarelto. Patient follows with Dr. Vee in [facility].. We have been asked to see the patient in consultation for congestive heart failure. Patient examined at the bedside. Patient presented to the hospital to chief complaint of weakness. Patient also reports having shortness of breath and increased lower extremity edema. The patient currently reports he is short of breath. He denies fever or chills. He denies chest pain or pressure. He denies dizziness or lightheadedness. Patient was evaluated by pulmonary medicine this morning and was started on an IV Lasix infusion. Patient reports having an echocardiogram recently and believes his ejection frac tion was normal. 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 EKG reveals sinus mechanism with no signs of acute ischemia Chest xray correlate for congestive heart failure with bibasilar effusions. Venous Doppler: Negative for DVT bilaterally Laboratory data: WBC 6.3. Hemoglobin 9.5. Platelet count 282. Sodium 138. Potassium 4.6. BUN 45. Creatinine 1.19. Troponin negative 1. ProBNP 559. Current home cardiac medications include Lasix 40 mg twice a day, lisinopril 40 mg daily, Xarelto 20 mg daily, and hydralazine 100 mg twice a day 10/15/2021 Patient examined this morning at the bedside. Patient denies chest pain or pressure. He does report improvement in his shortness of breath. He remains on IV Lasix infusion. Fluid balance over the last 24 hours is -626 mL. Echocardiogram completed revealing ejection fraction 55-60%, mild mitral regurgitation, and mild tricuspid regurgitation 10/16/2021 Patient examined this morning. He is sitting up in the chair. Denies chest pain or pressure. He states his SOB is improving. He was changed to Bumex infusion yesterday per internal medicine. FLuid balance over the last 24 hours is 5900cc. Creatinine 1.29 today. Potassium 5.7. 10/17 Patient seen and examined. Patient states his swelling continues improved on the Bumex with excellent urine output -1.5 L every 8 hours. Creatinine 1.26 today fairly stable compared to yesterday. Hyperkalemia has improved. Denies any chest pain or pressure. 10/18 Seen and examined. Patient states the swelling continues improved. He has been putting out with minus approximately 5 L last 24 hours with mild increasing creatinine up to 1.38 10/19/2021 Patient examined this afternoon. Patient is sitting up in the chair. Patient remains on a Bumex infusion at 0.5 mg an hour. Patient states his lower extremity edema is slowly improving. He also reports improvement in shortness of breath. Creatinine today 1.43, up from 1.38 yesterday. Fluid balance over the last 24 hours is -5950 mL. 10/20/2021 Patient examined this morning. Patient is sitting on the side of the bed. Patient denies chest pain or pressure. He currently denies shortness of breath. He remains on a Bumex infusion of 0.5 mg an hour. His lab work from this morning is currently pending. Fluid balance over the last 24 hours is -4500 mL. Patient states he has been up ambulating without difficulty. 10/21/2021 Patient examined this morning. Patient is sitting up in the bed. Patient denies chest pain or pressure. He denies shortness of breath. He remains on a Bumex infusion at 0.5 mg an hour. His lab work from this morning is currently pending. Fluid balance over the last 24 hours is -1253 mL which is significantl y less than he has been putting out previously. Patient does report he is urinating less than he has been. He states he was up walking 3 times yesterday in the hallway with a walker. The patient is upset this morning because plans are in place for subacute rehab at discharge and states he is upset with his because she wants him to go to rehab as well. Patient's blood pressure continues to be on the lower side with a systolic ranging between 90 and 100. Nursing reports they have been holding the patient's hydralazine. PHYSICAL EXAM: VITAL SIGNS: Reviewed. GENERAL: Well-developed in no acute distress. HEENT: Head is normocephalic. Pupils are equal, round. Sclerae anicteric. Mucous membranes of the mouth are moist. Neck supple. No JVD or thyromegaly LUNGS: Respirations even and unlabored. Lungs diminished bilaterally. HEART: Regular rate and rhythm. S1 and S2 heard. Systolic murmur noted. ABDOMEN: Soft. Nondistended. Nontender. EXTREMITIES: Normal range of motion. No clubbing or cyanosis. Peripheral pulses intact. Bilateral lower extremity edema noted, improving NEUROLOGIC: Awake and alert. Oriented x 3. ASSESSMENT: Generalized weakness Shortness of breath Bilateral pleural effusions per XR Acute on chronic congestive heart failure, with preserved LV function Recent diagnosis of pulmonary embolism, on Xarelto Hypertension Hyperlipidemia Diabetes Recent left great toe amputation Hyperkalemia PLAN: Await kidney function results this AM. Likely transition to oral diuretics today Daily weights Accurate I&O Continue anticoagulation with Xarelto Recommend Jardiance for diastolic heart failure. This can be discussed on an outpatient basis. Further recommendations pending patient's course Nurse practitioner note has been reviewed by physician. Signing provider agrees with the documented findings, assessment, and plan of care. Objective - Vital Signs Vital signs: Vital Signs Temp 98.4 F 10/21/21 08:00 Pulse 83 10/21/21 08:00 Resp 14 10/21/21 08:00 BP 104/53 10/21/21 08:00 Pulse Ox 94 L 10/21/21 08:00 Intake & Output 10/20/21 10/21/21 10/21/21 18:59 06:59 18:59 Intake Total 56.5 240 Output Total 1150 400 Balance -1093.5 -160 Weight 109 kg Intake: Intake, IV Titration 56.5 Amount Bumetanide 10 mg In 56.5 Dextrose 5% in Water 60 ml @ 0.5 MG/HR 5 mls/hr IV .Q20H [facility] Rx#: [id number] Oral 240 Output: Urine 1150 400 Other: Voiding Method Urinal - Labs CBC & Chem 7: 10/16/21 06:37 10/20/21 05:58 Labs: Abnormal Lab Results - Last 24 Hours (Table) 10/20/21 10/20/21 10/20/21 Range/Units 05:58 11:19 16:40 Chloride 92 L (96-109) mmol/L Carbon Dioxide 35.1 H (20.0-27.5) mmol/L BUN 74.9 H (9.0-27.0) mg/dL Est GFR (CKD-EPI)NonAf 57.9 L (60.0-200.0) BUN/Creatinine Ratio 55.48 H (12.00-20.00) Ratio Glucose 154 H (70-110) mg/dL POC Glucose (mg/dL) 201 H 126 H (75-99) mg/dL 10/20/21 10/21/21 Range/Units 20:04 07:15 Chloride (96-109) mmol/L Carbon Dioxide (20.0-27.5) mmol/L BUN (9.0-27.0) mg/dL Est GFR (CKD-EPI)NonAf (60.0-200.0) BUN/Creatinine Ratio (12.00-20.00) Ratio Glucose (70-110) mg/dL POC Glucose (mg/dL) 118 H 184 H (75-99) mg/dL
[2021-10-21 09:39] LABS: Anion Gap 10.6 mmol/L (10.00-18.00); Blood Urea Nitrogen 88.5 mg/dL (9.0-27.0); Calcium 8.8 mg/dL (8.7-10.3); Carbon Dioxide 37.4 mmol/L (20.0-27.5); Non-African American GFR(CKD) 50.9 (60.0-200.0)
[2021-10-21] MEDS: BUMETANIDE 10 MG in DEXTROSE 5% IN WATER 60 ML IV SCH ×2 (10:07)
[2021-10-21] MEDS: NYSTATIN 100,000UNIT/GM CREAM 30 GM TUBE TOPICAL SCH ×2 (10:07→21:14)
[2021-10-21 11:33] LABS: Glucose,Whole Blood 220 mg/dL (75-99)
[2021-10-21] MEDS: ALBUTEROL NEBULIZED 2.5 MG/3 ML INHALATION PRN (12:06)
--- NOTE | 2021-10-21 13:53 | CDI ---
Documentation Clarification Form Date: 10/21/2021 01:37:25 PM From: Mary Anne Sanchez RN CCDS Admit Date: 10/13/2021 05:20:00 PM Patient Name: Dustin Sesay Visit Number: [id number] Discharge Date: ATTENTION: The Clinical Documentation Specialists (CDI) and [facility] Coding Staff appreciate your assistance in clarifying documentation. Please respond to the clarification below the line at the bottom and electronically sign. The CDI & [facility] Coding staff will review the response and follow-up if needed. Please note: Queries are made part of the Legal Health Record. If you have any questions, please contact the author of this message via ITS. Dr. José Manuel Wood MD A debridement is documented 10/17, Surgical consult. Additional clarification regarding the procedure is requested. 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 The patient also has an ulcer on the lateral aspect of the right ankle which is being treated with local wound care. Medical history: Acute on chronic heart failure with preserved LV fcn; DM and HTN. 10/14, H&P. Clinical Indicators: 10/17 / Operative note: Ray amputation of the left foot big toe with presence of some devitalized tissue. The patient had some devitalized tissue. Using a curette, we cleaned the wound down to subcutaneous tissue. Post operative measurement is same 4 x 5 x 0.1cm. Left lateral malleolus is 2 x 1.5 x 0.2. Treatment: 10/17 Surgery above and [facility] gel Please clarify the type of procedure performed: [ ] Excisional debridement (the removal of necrotic, devitalized tissue or slough by means of cutting away of tissue) [ ] Non-excisional debridement (the removal of necrotic, devitalized tissue or slough by means of flushing, brushing, or washing. (Irrigation) [ ] Other; please specify [ ] Unable to determine Five elements required for accurate and compliant documentation of a debridement: Technique used (e.g., excisional, excised, cutting, brushing, jet lavage etc.) Instrument(s) used (e.g., scalpel, curette, etc.) Nature of the tissue removed (e.g., necrotic, devitalized tissues, non-viable tissue, etc.) Appearance and size of the wound (e.g., down to fresh bleeding tissue, 7cm x 10cm, etc.) Depth of the debridement* (e.g., skin, subcutaneous tissue, fascia, muscle, bone, etc.) (Template Last Revised: November 2020) CALISTAD
[2021-10-21] MEDS: FUROSEMIDE 20 MG TAB PO SCH (15:44)
[2021-10-21 16:36] LABS: Glucose,Whole Blood 172 mg/dL (75-99)
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
[2021-10-21 20:38] LABS: Glucose,Whole Blood 93 mg/dL (75-99)
[2021-10-21] MEDS: hydrALAZINE HCL 25 MG TAB PO SCH (21:00)
[2021-10-21] MEDS ORDERED: GABAPENTIN 300 MG CAP PO SCH (21:00)
[2021-10-22 04:28] VITALS: RESP 16
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
[2021-10-22 07:14] LABS: Glucose,Whole Blood 165 mg/dL (75-99)
[2021-10-22 08:39] LABS: African American GFR (CKD) 61 (>60 ml/min/1.73 sqM); Anion Gap 5 mmol/L; Blood Urea Nitrogen 95 mg/dL (9-20); Calcium 8.7 mg/dL (8.4-10.2); Carbon Dioxide 38 mmol/L (22-30); Chloride 94 mmol/L (98-107); Glucose 162 mg/dL (74-99); Non-African American GFR(CKD) 53 (>60 ml/min/1.73 sqM); Potassium 3.8 mmol/L (3.5-5.1); Sodium 137 mmol/L (137-145)
--- NOTE | 2021-10-22 09:23 | P.PN ---
Subjective Progress Note Date: 10/22/21 HISTORY OF PRESENT ILLNESS: This is a 56-year-old male with a past medical history significant for recent left toe amputation, hypertension, hyperlipidemia, congestive heart failure, diabetes, and pulmonary embolism on Xarelto. Patient follows with Dr. Vee in [facility] We have been asked to see the patient in consultation for congestive heart failure. Patient examined at the bedside. Patient presented to the hospital to chief complaint of weakness. Patient also reports having shortness of breath and increased lower extremity edema. The patient currently reports he is short of breath. He denies fever or chills. He denies chest pain or pressure. He denies dizziness or lightheadedness. Patient was evaluated by pulmonary medicine this morning and was started on an IV Lasix infusion. Patient reports having an echocardiogram recently and believes his ejection frac tion was normal. He denies ever having a stress test or heart catheterization with his primary king maker. EKG reveals sinus mechanism with no signs of acute ischemia Chest xray correlate for congestive heart failure with bibasilar effusions. Venous Doppler: Negative for DVT bilaterally Laboratory data: WBC 6.3. Hemoglobin 9.5. Platelet count 282. Sodium 138. Potassium 4.6. BUN 45. Creatinine 1.19. Troponin negative 1. ProBNP 559. Current home cardiac medications include Lasix 40 mg twice a day, lisinopril 40 mg daily, Xarelto 20 mg daily, and hydralazine 100 mg twice a day 10/15/2021 Patient examined this morning at the bedside. Patient denies chest pain or pressure. He does report improvement in his shortness of breath. He remains on IV Lasix infusion. Fluid balance over the last 24 hours is -626 mL. Echocardiogram completed revealing ejection fraction 55-60%, mild mitral regurgitation, and mild tricuspid regurgitation 10/16/2021 Patient examined this morning. He is sitting up in the chair. Denies chest pain or pressure. He states his SOB is improving. He was changed to Bumex infusion yesterday per internal medicine. FLuid balance over the last 24 hours is 5900cc. Creatinine 1.29 today. Potassium 5.7. 10/17 Patient seen and examined. Patient states his swelling continues improved on the Bumex with excellent urine output -1.5 L every 8 hours. Creatinine 1.26 today fairly stable compared to yesterday. Hyperkalemia has improved. Denies any chest pain or pressure. 10/18 Seen and examined. Patient states the swelling continues improved. He has been putting out with minus approximately 5 L last 24 hours with mild increasing creatinine up to 1.38 10/19/2021 Patient examined this afternoon. Patient is sitting up in the chair. Patient remains on a Bumex infusion at 0.5 mg an hour. Patient states his lower extremity edema is slowly improving. He also reports improvement in shortness of breath. Creatinine today 1.43, up from 1.38 yesterday. Fluid balance over the last 24 hours is -5950 mL. 10/20/2021 Patient examined this morning. Patient is sitting on the side of the bed. Patient denies chest pain or pressure. He currently denies shortness of breath. He remains on a Bumex infusion of 0.5 mg an hour. His lab work from this morning is currently pending. Fluid balance over the last 24 hours is -4500 mL. Patient states he has been up ambulating without difficulty. 10/21/2021 Patient examined this morning. Patient is sitting up in the bed. Patient denies chest pain or pressure. He denies shortness of breath. He remains on a Bumex infusion at 0.5 mg an hour. His lab work from this morning is currently pending. Fluid balance over the last 24 hours is -1253 mL which is significantl y less than he has been putting out previously. Patient does report he is urinating less than he has been. He states he was up walking 3 times yesterday in the hallway with a walker. The patient is upset this morning because plans are in place for subacute rehab at discharge and states he is upset with his because she wants him to go to rehab as well. Patient's blood pressure continues to be on the lower side with a systolic ranging between 90 and 100. Nursing reports they have been holding the patient's hydralazine. 10/22/2021 Patient examined this morning at the bedside. Patient is sitting on the side of the back. Patient denies chest pain or pressure. He currently denies shortness of breath. He states he did have an episode overnight that he required some supplemental oxygen but is currently on room air with oxygen saturations greater than 92%. Patient was transitioned to oral Lasix yesterday. Fluid balance over the last 24 hours is -1490 mL. Creatinine today 1.46. PHYSICAL EXAM: VITAL SIGNS: Reviewed. GENERAL: Well-developed in no acute distress. HEENT: Head is normocephalic. Pupils are equal, round. Sclerae anicteric. Mucous membranes of the mouth are moist. Neck supple. No JVD or thyromegaly LUNGS: Respirations even and unlabored. Lungs diminished bilaterally. HEART: Regular rate and rhythm. S1 and S2 heard. Systolic murmur noted. ABDOMEN: Soft. Nondistended. Nontender. EXTREMITIES: Normal range of motion. No clubbing or cyanosis. Peripheral pulses intact. Bilateral lower extremity edema noted, improving NEUROLOGIC: Awake and alert. Oriented x 3. ASSESSMENT: Generalized weakness Shortness of breath Bilateral pleural effusions per XR Acute on chronic congestive heart failure, with preserved LV function Recent diagnosis of pulmonary embolism, on Xarelto Hypertension Hyperlipidemia Diabetes Recent left great toe amputation Hyperkalemia PLAN: Continue to monitor kidney function Continue oral Lasix Continue additional cardiac medications Daily weights Accurate I&O Continue anticoagulation with Xarelto Recommend Jardiance for diastolic heart failure. This can be discussed on an outpatient basis. Patient is stable from a cardiac standpoint Further recommendations pending patient's course Nurse practitioner note has been reviewed by physician. Signing provider agrees with the documented findings, assessment, and plan of care. Objective - Vital Signs Vital signs: Vital Signs Temp 98.1 F 10/22/21 07:37 Pulse 80 10/22/21 08:36 Resp 16 10/22/21 08:36 BP 104/57 10/22/21 07:37 Pulse Ox 99 10/22/21 07:37 Intake & Output 10/21/21 10/22/21 10/22/21 18:59 06:59 18:59 Intake Total 710 Output Total 1000 1200 Balance -290 -1200 Weight 104.8 kg Intake: Oral 710 Output: Urine 1000 1200 Other: Voiding Method Urinal Urinal Urinal - Labs CBC & Chem 7: 10/16/21 06:37 10/22/21 07:51 Labs: Abnormal Lab Results - Last 24 Hours (Table) 10/21/21 10/21/21 10/21/21 Range/Units 05:59 11:31 16:35 Chloride 91 L (96-109) mmol/L Carbon Dioxide 37.4 H (20.0-27.5) mmol/L BUN 88.5 H (9.0-27.0) mg/dL Creatinine (0.66-1.25) mg/dL Est GFR (CKD-EPI)AfAm 59.0 L (60.0-200.0) Est GFR (CKD-EPI)NonAf 50.9 L (60.0-200.0) BUN/Creatinine Ratio 59.00 H (12.00-20.00) Ratio Glucose 185 H (70-110) mg/dL POC Glucose (mg/dL) 220 H 172 H (75-99) mg/dL 10/22/21 10/22/21 Range/Units 07:12 07:51 Chloride 94 L (96-109) mmol/L Carbon Dioxide 38 H (20.0-27.5) mmol/L BUN 95 H (9.0-27.0) mg/dL Creatinine 1.46 H (0.66-1.25) mg/dL Est GFR (CKD-EPI)AfAm (60.0-200.0) Est GFR (CKD-EPI)NonAf (60.0-200.0) BUN/Creatinine Ratio (12.00-20.00) Ratio Glucose 162 H (70-110) mg/dL POC Glucose (mg/dL) 165 H (75-99) mg/dL
[2021-10-22] MEDS: EZETIMIBE 10 MG TAB PO SCH (09:35)
[2021-10-22] MEDS: hydrALAZINE HCL 25 MG TAB PO SCH ×2 (09:35→15:35)
[2021-10-22] MEDS: FUROSEMIDE 20 MG TAB PO SCH ×2 (09:35→15:35)
[2021-10-22] MEDS: ISOSORBIDE MONONITRATE ER 30 MG TAB.ER.24H PO SCH (09:35)
[2021-10-22] MEDS: ATORVASTATIN 20 MG TAB PO SCH (09:35)
[2021-10-22] MEDS: NYSTATIN 100,000UNIT/GM CREAM 30 GM TUBE TOPICAL SCH (09:37)
[2021-10-22] MEDS: INSULIN ASPART (NovoLOG) 100 UNIT/ML VIAL SQ SCH ×2 (09:38→11:57)
[2021-10-22] MEDS: INSULN ASP PRT/INSULIN ASPART 100 UNIT/ML 10 ML VIAL SQ SCH ×2 (09:38→11:58)
[2021-10-22] MEDS: acetaZOLAMIDE 250 MG TAB PO SCH (09:42)
[2021-10-22] MEDS: RIVAROXABAN 20 MG TAB PO SCH (09:42)
[2021-10-22 11:33] LABS: Glucose,Whole Blood 191 mg/dL (75-99)
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
[2021-10-22 14:59] VITALS: BP 102/49; PULSE 81; TEMP 97.9
--- NOTE | 2021-11-03 09:24 | CDI ---
Documentation Clarification Form Date: 10/21/2021 01:37:25 PM From: Mary Anne Sanchez RN CCDS Admit Date: 10/13/2021 05:20:00 PM Patient Name: Dustin Sesay Visit Number: [id number] Discharge Date: ATTENTION: The Clinical Documentation Specialists (CDI) and [facility] Coding Staff appreciate your assistance in clarifying documentation. Please respond to the clarification below the line at the bottom and electronically sign. The CDI & [facility] Coding staff will review the response and follow-up if needed. Please note: Queries are made part of the Legal Health Record. If you have any questions, please contact the author of this message via ITS. Dr. José Manuel Wood MD A debridement is documented 10/17, Surgical consult. Additional clarification regarding the procedure is requested. 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 The patient also has an ulcer on the lateral aspect of the right ankle which is being treated with local wound care. Medical history: Acute on chronic heart failure with preserved LV fcn; DM and HTN. 10/14, H&P. Clinical Indicators: 10/17 / Operative note: Ray amputation of the left foot big toe with presence of some devitalized tissue. The patient had some devitalized tissue. Using a curette, we cleaned the wound down to subcutaneous tissue. Post operative measurement is same 4 x 5 x 0.1cm. Left lateral malleolus is 2 x 1.5 x 0.2. Treatment: 10/17 Surgery above and [facility] gel Please clarify the type of procedure performed: [ ] Excisional debridement (the removal of necrotic, devitalized tissue or slough by means of cutting away of tissue) [ ] Non-excisional debridement (the removal of necrotic, devitalized tissue or slough by means of flushing, brushing, or washing. (Irrigation) [ ] Other; please specify [ ] Unable to determine Five elements required for accurate and compliant documentation of a debridement: Technique used (e.g., excisional, excised, cutting, brushing, jet lavage etc.) Instrument(s) used (e.g., scalpel, curette, etc.) Nature of the tissue removed (e.g., necrotic, devitalized tissues, non-viable tissue, etc.) Appearance and size of the wound (e.g., down to fresh bleeding tissue, 7cm x 10cm, etc.) Depth of the debridement* (e.g., skin, subcutaneous tissue, fascia, muscle, bone, etc.) (Template Last Revised: November 2020) [place]IST[place]
--- NOTE | 2021-11-05 09:56 | CDI ---
Documentation Clarification Form Date: 10/21/2021 01:37:25 PM From: Mary Anne Sanchez RN CCDS Admit Date: 10/13/2021 05:20:00 PM Patient Name: Dustin Sesay Visit Number: [id number] Discharge Date: ATTENTION: The Clinical Documentation Specialists (CDI) and [facility] Coding Staff appreciate your assistance in clarifying documentation. Please respond to the clarification below the line at the bottom and electronically sign. The CDI & [facility] Coding staff will review the response and follow-up if needed. Please note: Queries are made part of the Legal Health Record. If you have any questions, please contact the author of this message via ITS. Dr. José Manuel Wood MD A debridement is documented 10/17, Surgical consult. Additional clarification regarding the procedure is requested. 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 The patient also has an ulcer on the lateral aspect of the right ankle which is being treated with local wound care. Medical history: Acute on chronic heart failure with preserved LV fcn; DM and HTN. 10/14, H&P. Clinical Indicators: 10/17 / Operative note: Ray amputation of the left foot big toe with presence of some devitalized tissue. The patient had some devitalized tissue. Using a curette, we cleaned the wound down to subcutaneous tissue. Post operative measurement is same 4 x 5 x 0.1cm. Left lateral malleolus is 2 x 1.5 x 0.2. Treatment: 10/17 Surgery above and [facility] gel Please clarify the type of procedure performed: [ X ] Excisional debridement (the removal of necrotic, devitalized tissue or slough by means of cutting away of tissue) [ ] Non-excisional debridement (the removal of necrotic, devitalized tissue or slough by means of flushing, brushing, or washing. (Irrigation) [ ] Other; please specify [ ] Unable to determine Five elements required for accurate and compliant documentation of a debridement: Technique used (e.g., excisional, excised, cutting, brushing, jet lavage etc.) Instrument(s) used (e.g., scalpel, curette, etc.) Nature of the tissue removed (e.g., necrotic, devitalized tissues, non-viable tissue, etc.) Appearance and size of the wound (e.g., down to fresh bleeding tissue, 7cm x 10cm, etc.) Depth of the debridement* (e.g., skin, subcutaneous tissue, fascia, muscle, bone, etc.) (Template Last Revised: November 2020) Excisional Debridement subcutaneous tissue MTDD
== END 2021-10-22 16:16 | DRG 264 ==
LOC: EC 13:27 → 4SSUR 17:20
PROVIDERS: ADMIT Hospitalist; ATTEND Hospitalist
PROC: 0JBR0ZZ Excision of Left Foot Subcutaneous Tissue and Fascia, Open Approach (ICD-10-PCS; principal; 2021-10-17)
DX: I11.0 Hypertensive heart disease with heart failure (principal); I50.33 Acute on chronic diastolic (congestive) heart failure; J96.01 Acute respiratory failure with hypoxia; I26.99 Other pulmonary embolism without acute cor pulmonale; Z68.41 Body mass index [BMI] 40.0-44.9, adult; E87.1 Hypo-osmolality and hyponatremia; R29.6 Repeated falls; E11.42 Type 2 diabetes mellitus with diabetic polyneuropathy; W19.XXXA Unspecified fall, initial encounter; E11.649 Type 2 diabetes mellitus with hypoglycemia without coma; E66.01 Morbid (severe) obesity due to excess calories; E78.5 Hyperlipidemia, unspecified; E86.0 Dehydration; E87.5 Hyperkalemia; F32.A Depression, unspecified; F90.9 Attention-deficit hyperactivity disorder, unspecified type; G47.33 Obstructive sleep apnea (adult) (pediatric); L89.512 Pressure ulcer of right ankle, stage 2; K21.9 Gastro-esophageal reflux disease without esophagitis; J45.909 Unspecified asthma, uncomplicated; L97.522 Non-pressure chronic ulcer of other part of left foot with fat layer exposed; M19.91 Primary osteoarthritis, unspecified site; E11.621 Type 2 diabetes mellitus with foot ulcer; Z20.822 Contact with and (suspected) exposure to COVID-19; Z79.01 Long term (current) use of anticoagulants; Y92.002 Bathroom of unspecified non-institutional (private) residence as the place of occurrence of the external cause; Z79.4 Long term (current) use of insulin; Z86.14 Personal history of Methicillin resistant Staphylococcus aureus infection; Z79.899 Other long term (current) drug therapy; Z87.442 Personal history of urinary calculi; Z82.49 Family history of ischemic heart disease and other diseases of the circulatory system; Z83.3 Family history of diabetes mellitus
CPT/HCPCS: 36415; 70450; 71045; 71046; 72125; 73502; 80048; 80053; 81003; 83735; 83880; 84145; 84484; 85025; 85610; 85730; 87635; 93005; 93306; 93970; 94640; 94760; 99285